=== PATIENT | female | born 1995 | race Caucasian/White ===

== ENCOUNTER → 2017-01-14 | Outpatient (CLI) | payer OTHER | LOC: OD 10:36 | PROVIDERS: ATTEND Midwife | DX: J06.9 Acute upper respiratory infection, unspecified (principal) | CPT/HCPCS: 87804 ==

== ENCOUNTER 2017-03-13 07:02 | Inpatient (IN) | payer OTHER ==
[2017-03-13] MEDS ORDERED: RINGERS SOLUTION,LACTATED 300 ML IV ONE (07:17)
[2017-03-13] MEDS ORDERED: OXYTOCIN/NORMAL SALINE 1,000 ML IV PRN ×2 (07:17→17:16)
[2017-03-13] MEDS ORDERED: OXYTOCIN/NORMAL SALINE 20 UNIT/1,000 ML RTUINJ ONE ×2 (08:01→16:22)
--- NOTE | 2017-03-13 08:01 | L&D Flow Sheet ---
LD Flowsheet Datetime Report Generated by CPN: 03/13/2017 08:00 Datetime: 03/13/2017 07:42 Vital Signs NBP Sys/Marry/Mean (mmHg): 95 (QS system process) : 55 (QS system process) : 70 (QS system process) Pulse: 91 (QS system process) Temperature (F): 99.0 (Jasmyne Whitetail, [facility]) Temperature (C): 37.2 (QS system process) Communication LaborFlag: Antepartum (QS system process)
[2017-03-13 08:13] LABS: ABSOLUTE LYMPHOCYTES (AUTO) 1.5 10^3/uL (0.5-4.7); ABSOLUTE MONOCYTES (AUTO) 0.6 10^3/uL (0.1-1.4); ABSOLUTE NEUT (AUTO) 7.6 10^3/uL (1.7-8.2); BASOPHILS % (AUTO) 0.2 % (0-2); EOSINOPHILS % (AUTO) 0.5 % (0-6); HEMATOCRIT 33.1 % (36.0-47.0); HEMOGLOBIN 11.5 g/dL (12.0-15.5); HGB HCT DIFFERENCE 1.4; LYMPHOCYTES % (AUTO) 15.6 % (13-45); MEAN CORPUSCULAR HEMOGLOBIN 31.6 pg (27.0-33.4); MEAN CORPUSCULAR HGB CONC 34.9 g/dL (32.0-36.0); MEAN CORPUSCULAR VOLUME 90 fl (80-97); MONOCYTES % (AUTO) 6.1 % (3-13); RED BLOOD COUNT 3.66 10^6/uL (3.72-5.28); RED CELL DISTRIBUTION WIDTH 13.3 % (11.5-14.0); SEGMENTED NEUTROPHILS % (AUTO) 77.6 % (42-78); WHITE BLOOD COUNT 9.8 10^3/uL (4.0-10.5)
[2017-03-13] MEDS: RINGERS SOLUTION,LACTATED 1,000 ML IV PRN ×4 (08:25→17:14)
[2017-03-13 09:02] LABS: APPEARANCE,URINE SLIGHTLY-CLOUDY; BILIRUBIN,URINE NEGATIVE (NEGATIVE); GLUCOSE, URINE NEGATIVE (NEGATIVE); KETONES,URINE TRACE mg/dL (NEGATIVE); LEUKOCYTE ESTERASE,URINE NEGATIVE (NEGATIVE); NITRITE,URINE NEGATIVE (NEGATIVE); PROTEIN,URINE NEGATIVE (NEGATIVE); UROBILINOGEN,URINE NEGATIVE mg/dL (<2.0)
[2017-03-13 09:18] LABS: URINE BARBITURATES SCREEN NEGATIVE; URINE METHADONE SCREEN NEGATIVE; URINE OPIATES LOW NEGATIVE; URINE PHENCYCLIDINE SCREEN NEGATIVE
[2017-03-13] MEDS ORDERED: FENTANYL/BUPIVACAINE/NS/PF 200 MCG/100 ML RTUINJ EPI ONE (13:43)
[2017-03-13] MEDS ORDERED: EPHEDRINE SULFATE INJ 50 MG/1 ML AMPULE ONE (13:43)
[2017-03-13] MEDS ORDERED: BUPIVACAINE HCL 0.25 % INJ/PF (2.5 MG/1 ML) 30 ML VIAL ONE (13:43)
[2017-03-13] MEDS ORDERED: FENTANYL/BUPIVACAINE/NS/PF 100 ML EPI PRN (16:00)
[2017-03-13] MEDS ORDERED: BENZOIN/ALOE VERA/STORAX/TOLU TINCTURE 60 ML TP PRN (16:00)
[2017-03-13] MEDS ORDERED: BUPIVACAINE HCL 0.25 % INJ/PF (2.5 MG/1 ML) 30 ML VIAL INFIL ONE (16:00)
[2017-03-13] MEDS ORDERED: MISOPROSTOL 0.2 MG TABLET ONE (16:21)
[2017-03-13] MEDS ORDERED: LIDOCAINE 1% INJ-PF (10 MG/ML) 30 ML SDV ONE (16:22)
[2017-03-13] MEDS ORDERED: MEASLES,MUMPS&RUBELLA VACC/PF 0.5 ML VIAL SUBCUT PRN (17:16)
[2017-03-13] MEDS ORDERED: DIPHENHYDRAMINE HCL 25 MG CAPSULE PO PRN (17:16)
[2017-03-13] MEDS ORDERED: PROMETHAZINE HCL 25 MG TABLET PO PRN (17:16)
[2017-03-13] MEDS ORDERED: ACETAMINOPHEN WITH CODEINE #3 TABLET PO PRN ×2 (17:16)
[2017-03-13] MEDS ORDERED: PROMETHAZINE HCL INJ 25 MG/1 ML VIAL IV PRN (17:16)
[2017-03-13] MEDS ORDERED: DIBUCAINE 1% OINTMENT 28 GM TP PRN (17:16)
[2017-03-13] MEDS ORDERED: MAGNESIUM HYDROXIDE SUSP 30 ML UDCUP PO PRN (17:16)
[2017-03-13] MEDS ORDERED: ACETAMINOPHEN 650 MG SUPP.RECT PR PRN (17:16)
[2017-03-13] MEDS ORDERED: DIPH/PERTUSS(ACELL)/TETANUS VAC/PF 0.5 ML SYR (>=10YO) IM PRN (17:16)
[2017-03-13] MEDS ORDERED: ZOLPIDEM TARTRATE 5 MG TABLET PO PRN (17:16)
[2017-03-13] MEDS ORDERED: PSEUDOEPHEDRINE HCL 30 MG TABLET PO PRN (17:16)
[2017-03-13] MEDS ORDERED: PROMETHAZINE HCL 25 MG SUPP.RECT PR PRN (17:16)
[2017-03-13] MEDS ORDERED: BENZOCAINE/MENTHOL AEROSOL SPRAY 56 ML TOP PRN (17:16)
[2017-03-13] MEDS ORDERED: NA PHOS,M-B/NA PHOS,DI-BA (ADULT) 133 ML ENEMA PR PRN (17:16)
[2017-03-13] MEDS ORDERED: GLYCERIN/WITCH HAZEL LEAF 1 EACH MED..PAD TP PRN (17:16)
--- NOTE | 2017-03-13 18:02 | L&D Current Admission ---
Current Admit Datetime Report Generated by CPN: 03/13/2017 18:00 ADMISSION INFORMATION Current Admit Date/Time: 03/13/2017 07:25 (03/13/2017 07:45:RODNEY Hair) Reason for Admission: Induction of Labor (03/13/2017 07:45:RODNEY Hair) Chief Complaint: Scheduled Induction of Labor (03/13/2017 07:45:RODNEY Hair) Medications During : Vitamin; Hydroxyzine (Vistaril) (03/13/2017 07:45:RODNEY Hair) Meds During -Oth: macrobid and vitamins (03/13/2017 07:45:RODNEY Hair) EGA per Dates: 40.0 (03/13/2017 07:45:QS system process) Method of Arrival: Ambulatory (03/13/2017 07:45:RODNEY Hair) Admitted From: Home (03/13/2017 07:45:RODNEY Hair) Reason for Induction: Maternal Diabetes; Other (03/13/2017 07:45:RODNEY Hair) Reason for Induction- Other: GDM diet controlled (03/13/2017 07:45:RODNEY Hair) Records Available: Yes (03/13/2017 07:45:RODNEY Hair) General Admission Information: Reviewed; Updated; Confirmed (03/13/2017 07:45:RODNEY Hair) General Admission Reviewed By: Jasmyne STEVENS (03/13/2017 07:45:RODNEY Hair) BELONGINGS/ADVANCED DIRECTIVES Valuables/Personal Effects: Purse/Wallet; Cell Phone (03/13/2017 07:45:RODNEY Hair) Other Belongings: see [facility] Valuables consent (11/15/2016 23:22:RODNEY Hair) Disposition of Belongings: Kept with Patient (03/13/2017 07:45:RODNEY Hair) Advance Direct for Healthcare: No, and Wants No Information (03/13/2017 07:45:RODNEY Hair) Durable Power of County Adviser: No (03/13/2017 07:45:RODNEY Hair) Living Will: Yes (03/13/2017 07:45:RODNEY Hair) Organ Donor: Yes (03/13/2017 07:45:RODNEY Hair) Pt Rights Information Given: Yes (03/13/2017 07:45:RODNEY Hair) Pt Understands Pt Rights: Yes (03/13/2017 07:45:RODNEY Hair) Patient Rights Comments: requests notary (03/13/2017 07:45:RODNEY Hair) LEARNING ASSESSMENT Knowledge Level: Understands L_D Process; Understands Care Activities; Had Pre-Hospital Education (03/13/2017 07:45:RODNEY Hair) Barriers to Learning: None (03/13/2017 07:45:RODNEY Hair) Learning Readiness: Motivated (03/13/2017 07:45:RODNEY Hair) Learns Best By: 1 to 1 Instruction; Demonstration (03/13/2017 07:45:RODNEY Hair) Learning Needs: Labor and Delivery Process; Pain Management; Symptoms to Report; Treatment Plan; Medication; Diagnosis; Nutrition; Equipment; Infant Care; Community Resources; Other (03/13/2017 07:45:RODNEY Hair) Learning Assessment Comments: (03/13/2017 07:45:RODNEY Hair) DOMESTIC VIOLANCE SCREENING Dom Viol Threatened/Hurt: No (03/13/2017 07:45:RODNEY Hair) Hx of Abuse/Neglect past 2yrs: No (03/13/2017 07:45:RODNEY Hair) Feel Unsafe Going Home: No (03/13/2017 07:45:RODENY Hair) Addt'l Observ Indicating Abuse: No (03/13/2017 07:45:RODNEY Hair) Reason Unable to Complete Screen: N/A, Screen Completed (03/13/2017 07:45:RODNEY Hair) Considered Personal Harm/Suicide: No (03/13/2017 07:45:RODNEY Hair) NUTRITIONAL/FUNCTIONAL SCREENING Problem with Appetite >5 Days: No (03/13/2017 07:45:RODNEY Hair) Chew/Swallow Difficulties: No (03/13/2017 07:45:RODNEY Hair) Inappropriate Wt Gain/Loss: No (03/13/2017 07:45:RODNEY Hair) Presence Skin Breakdown/Ulcer: No (03/13/2017 07:45:RODNEY Hair) Special Diet: No (03/13/2017 07:45:RODNEY Hair) Specify Diet: lactose intolerant (03/13/2017 07:45:RODNEY Hair) Pt Requests Care Center Manager Visit: No (03/13/2017 07:45:RODNEY Hair) Hx of Any of the Following?: N/A (03/13/2017 07:45:RODNEY Hair) New Diagnosis of: N/A (03/13/2017 07:45:RODNEY Hair) Requires Assist w/Ambulation: No (03/13/2017 07:45:RODNEY Hair) Uses Assist Device to Ambulate: No (03/13/2017 07:45:Jasmyne Camp, RNC) Pt Requires Help w/ADL's: No (03/13/2017 07:45:RODNEY Hair)
--- NOTE | 2017-03-13 18:02 | L&D General Admission ---
General Admit Datetime Report Generated by CPN: 03/13/2017 18:00 INFORMATION Patient Age: 21 (11/15/2016 22:55:QS system process) EDC: 03/13/2017 00:00 (11/15/2016 22:57:Carolann Gonzalez RN) : 2 (11/15/2016 22:57:Carolann Gonzalez RN) Para: 0 (11/15/2016 22:57:Carolann Gonzalez RN) Term: 0 (11/15/2016 22:57:RODNEY Hair) : 0 (11/15/2016 22:57:RODNEY Hair) Spontaneous Abortions: 0 (11/15/2016 22:57:RODNEY Hair) Induced Abortions: 1 (11/15/2016 22:57:RODNEY Hair) Livin (11/15/2016 22:57:RODNEY Hair) Cesareans: 0 (11/15/2016 22:57:RODNEY Hair) [facility]: [facility] Ectopic: 0 (11[facility]15/2016 [facility] Multiple Births: 0 (11/15/2016 22:57:[facility], [facility]) Baby, Number in Womb: 1 (11/15/2016 22:57:[facility], [facility]) CARE Primary Roofing Subcontractor[facility] (11/15/2016 22:57:Carolann Gonzalez RN) Month of 1st Visit: July (11/15/2016 22:57:Jasmyne Scales [facility]) Adequate Care: Yes (11/15/2016 22:57:Carolann Gonzalez RN) Prepregnancy Weight (lb): 148 (11/15/2016 22:57:Carolann Gonzalez RN) Prepregnancy Weight (kg): 67.3 (11/15/2016 22:57:QS system process) Height (in): 67 (03/13/2017 10:03:QS system process) ALLERGIES Medication Allergy: Yes (11/15/2016 22:57:Carolann Gonzalez RN) Medication Allergies: clavulanic acid (10/13/2016); clarithromycin (03/13/2017); amoxicillin (10/13/2016) (03/13/2017 07:21:QS system process) Latex Allergy: No Latex Allergies (11/15/2016 22:57:Carolann Gonzalez RN) COMMUNICATION Primary Language: Lao (11/15/2016 22:57:Carolann Gonzalez RN) Medical Tx Preferred Language: Lao (11/15/2016 22:57:Carolann Gonzalez RN) Communication Barrier(s): None (11/15/2016 22:57:RODNEY Hair) DEMOGRAPHICS Address: [facility] [place] [id number] (11/15/2016 22:55:QS system process) Zipcode: [address] (11/15/2016 22:55:QS system process) Home (11/15/2016 22:55:QS system process) Work (11/15/2016 22:55:QS system process) N: [id number] (11/15/2016 22:55:QS system process) Next of Kin Name: VITA RIZZO (11/15/2016 22:55:QS system process) Next of Kin (11/15/2016 22:55:QS system process) Next of Kin Relationship: SPO (11/15/2016 22:55:QS system process) Date of : 1995 (11/15/2016 22:55:QS system process) Marital Status: (11/15/2016 22:55:QS system process) Sex: Female (11/15/2016 22:55:QS system process) 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 [id number] (11/15/2016 22:57:Carolann Gonzalez RN) Marijuana: No (11/15/2016 22:57:Carolann Gonzalez RN) Cocaine: No (11/15/2016 22:57:Carolann Gonzalez RN) Other Illicit Drugs: No (11/15/2016 22:57:Carolann Gonzalez RN) VACCINE HISTORY Influenza Vaccine: Yes (11/15/2016 22:57:Carolann Gonzalez RN) Influenza Date: 10-03-2016 (11/15/2016 22:57:[facility]asmyne [facility]) Pneumococcal Vaccine: No (11/15/2016 22:57:[facility], [facility]) Tetanus Vaccine: Yes (11/15/2016 22:57:[facility]) Tetanus Date: 12-17-2016 (11/15/2016 22:57:[facility]) Tdap Vaccine: Yes (11/15/2016 22:57:[facility]) Tdap Date: 12-17-2016 (11/15/2016 22:57:[facility]) Hepatitis B Vaccine: Uncertain (11/15/2016 22:57:[facility]) Branch Or Department Chief Librarian: [facility] (11/15/2016 22:57:RODNEY Hair) Feeding Preference: Breast (11/15/2016 22:57:Carolann Gonzalez RN) Benefit of Breast Feed Discussed: Yes (11/15/2016 22:57:RODNEY Hair) Circumcision: N/A (11/15/2016 22:57:Carolann Goznalez RN) Classes Attended: Yes (11/15/2016 22:57:RODNEY Hair) Tubal Ligation: No (11/15/2016 22:57:Carolann Gonzalez RN) Tubal Authorization Signed: N/A (11/15/2016 22:57:Carolann Gonzalez RN) Consent: N/A (11/15/2016 22:57:Carolann Gonzalez RN) Consent Signed: N/A (11/15/2016 22:57:Carolann Gonzalez RN) Pain Management Plans: Epidural (11/15/2016 22:57:RODNEY Hair) Plans for Labor and Delivery: None (11/15/2016 22:57:Carolann Gonzalez RN) Support Person: Demetrio Rizzo (11/15/2016 22:57:Carolann Gonzalez RN) Support Person Relationship: (11/15/2016 22:57:Carolann Gonzalez RN) Cultural/Spritual Practice: N/A (11/15/2016 22:57:Carolann Gonzalez RN) Spir/Cult Dietary Needs: N/A (11/15/2016 22:57:Carolann Gonzalez RN) LIVING SITUATION/DISCHARGE PLAN Living Arrangements: House (11/15/2016 22:57:Carolann Gonzalez RN) Adequate Access to:: Electric; Heat; Refrigeration; Plumbing/Running water; Phone; Transportation (11/15/2016 22:57:Carolann Gonzalez RN) WIC Program: No (11/15/2016 22:57:Carolann Gonzalez RN) Discharge Wax Ball Knock Out Worker Person: Demetrio Rizzo (11/15/2016 22:57:Carolann Gonzalez RN) Person to Help after Discharge: Demetrio Rizzo (11/15/2016 22:57:Carolann Gonzalez RN) Currently Using Commun Resources: No (11/15/2016 22:57:Carolann Gonzalez RN) Outside Agency/High Frequency Mill Operator: No (11/15/2016 22:57:Carolann Gonzalez RN) Car Seat for Discharge: Yes (11/15/2016 22:57:RODNEY Hair) Adoption Requested: No (11/15/2016 22:57:Carolann Gonzalez RN) Pt Contact w/infant Post : N/A (11/15/2016 22:57:Carolann Gonzalez RN) LABS Blood Type: A Positive (11/15/2016 22:57:Carolann Gonzalez RN) Antibody Screen: negative (11/15/2016 22:57:Carolann Gonzalez RN) Hemoglobin: 11.5 L (03/13/2017 07:53:QS system process) Hematocrit: 33.1 L (03/13/2017 07:53:QS system process) MCV: 90 (03/13/2017 07:53:QS system process) Group Beta Strep: negative (11/15/2016 22:57:Yvette Aguillon RN) Gonorrhea: Negative (11/15/2016 22:57:Carolann Gonzalez RN) Chlamydia: Negative (11/15/2016 22:57:Carolann Gonzalez RN) RPR/VDRL: Nonreactive (11/15/2016 22:57:Carolann Gonzalez RN) HIV Exposure Test: Negative (11/15/2016 22:57:Yvette Aguillon RN) HIV Results: negative (11/15/2016 22:57:Yvette Aguillon RN) Hepatitis B: Negative (11/15/2016 22:57:Carolann Gonzalez RN) Rubella: Immune (11/15/2016 22:57:Carolann Gonzalez RN) OB/PREVIOUS HISTORY Previous Procedures: None (11/15/2016 22:57:Carolann Gonzalez RN) Current Procedures: Ultrasound (11/15/2016 22:57:Carolann Gonzalez RN) History of Previous : No (11/15/2016 22:57:Carolann Gonzalez RN) History of Gestational Diabetes: No (11/15/2016 22:57:Carolann Gonzalez RN) History of PIH: No (11/15/2016 22:57:Carolann Gonzalez RN) History of Incompetent Cervix: No (11/15/2016 22:57:Carolann Gonzalez RN) History of Placenta Previa/Abrup: No (11/15/2016 22:57:Carolann Gonzalze RN) History of Macrosomia: No (11/15/2016 22:57:Carolann Gonzalez RN) History of IUGR: No (11/15/2016 22:57:Carolann Gonzalez RN) History of Hemorrhage: No (11/15/2016 22:57:Carolann Gonzalez RN) History of Loss/Stillborn: No (11/15/2016 22:57:Carolann Gonzalez RN) History of : No (11/15/2016 22:57:Carolann Gonzalez RN) History of D (Rh) Sensitization: No (11/15/2016 22:57:Carolann Gonzalez RN) History Recurrent Loss/Stillborn: No (11/15/2016 22:57:Carolann Gonzalez RN) History Depression/PP Depression: No (11/15/2016 22:57:Carolann Gonzalez RN) History of Uterine Anomaly/DEMETRIUS: No (11/15/2016 22:57:Carolann Gonzalez RN) History of Infertility: No (11/15/2016 22:57:Carolann Gonzalez RN) History of ART Treatment: No (11/15/2016 22:57:Carolann Gonzalez RN) History of DEMETRIUS: No (11/15/2016 22:57:Carolann Gonzalez RN) Comments Obstetrical History: g1-7 weeks g2- current (11/15/2016 22:57:Carolann Gonzalez RN) MEDICAL HISTORY Med Hx Diabetes: No (11/15/2016 22:57:Carolann Gonzalez RN) Med Hx Hypertension: No (11/15/2016 22:57:Carolann Gonzalez RN) Med Hx Heart Disease: No (11/15/2016 22:57:Carolann Gonzalez RN) Med Hx Autoimmune Disorder: No (11/15/2016 22:57:Carolann Gonzalez RN) Med Hx Kidney Disease/UTI: No (11/15/2016 22:57:Carolann Gonzalez RN) Med Hx Neurologic/Epilepsy: No (11/15/2016 22:57:Carolann Gonzalez RN) Med Hx Psychiatric Disorders: No (11/15/2016 22:57:Carolann Gonzalez RN) Med Hx Hepatitis/Liver Disease: No (11/15/2016 22:57:Carolann Gonzalez RN) Med Hx Varicosities/Phlebitis: No (11/15/2016 22:57:Carolann Gonzalez RN) Med Hx Thyroid Dysfunction: No (11/15/2016 22:57:Carolann Gonzalez RN) Med Hx Trauma/Violence: No (11/15/2016 22:57:Carolann Gonzalez RN) Med Hx Blood Transfusion: No (11/15/2016 22:57:Carolann Gonzalez RN) Med Hx Pulmonary (Asthma,TB): No (11/15/2016 22:57:Carolann Gonzalez RN) Med Hx Breast: No (11/15/2016 22:57:Carolann Gonzalez RN) Med Hx SCREEN MACHINE OPERATOR Surgery: No (11/15/2016 22:57:Carolann Gonzalez RN) Med Hx Hospitalization/Surgery: Yes (11/15/2016 22:57:Carolann Gonzalez RN) Med Hx Anesthetic Complications: No (11/15/2016 22:57:Carolann Gonzalez RN) Med Hx Abnormal Pap Smear: No (11/15/2016 22:57:Carolann Gonzalez RN) Other Medical Diseases: No (11/15/2016 22:57:Carolann Gonzalez RN) Med Hx Significant Family Hx: No (11/15/2016 22:57:Carolann Gonzalez RN) Details of Med/Surg Hx: tonsilectomy, adenoidectomy, and removal of lump from breast bone (11/15/2016 22:57:Carolann Gonzalez RN) INFECTIOUS HISTORY Inf Hx Gonorrhea: No (11/15/2016 22:57:Carolann Gonzalez RN) Inf Hx Chlamydia: No (11/15/2016 22:57:Carolann Gonzalez RN) Inf Hx Syphilis: No (11/15/2016 22:57:Carolann Gonzalez RN) Inf Hx HIV/AIDS: No (11/15/2016 22:57:Carolnan Gonzalez RN) Inf Hx Human Papilloma Virus: No (11/15/2016 22:57:Carolann Gonzalez RN) Inf Hx Pt/Partner Genital Herpes: No (11/15/2016 22:57:Carolann Gonzalez RN) Inf Hx Tuberculosis/Exposure: No (11/15/2016 22:57:Carolann Gonzalez RN) Inf Hx Hepatitis B,C: No (11/15/2016 22:57:Carolann Gonzalez RN) Inf Hx Rash or Viral Illness: No (11/15/2016 22:57:Carolann Gonzalez RN) GENETIC HISTORY Gen Hx Age >=35 at BABAK: No (11/15/2016 22:57:Carolann Gonzalez RN) Gen Hx Thalassemia: No (11/15/2016 22:57:Carolann Gonzalez RN) Gen Hx Congenital Heart Defect: No (11/15/2016 22:57:Carolann Gonzalez RN) Gen Hx Neural Tube Defect: No (11/15/2016 22:57:Carolann Gonzalez RN) Gen Hx Down's Syndrome: No (11/15/2016 22:57:Carolann Gonzalez RN) Gen Hx Denton-Sachs: No (11/15/2016 22:57:Carolann Gonzalez RN) Gen Hx Patricia: No (11/15/2016 22:57:Carolann Gonzalez RN) Gen Hx Familial Dysautonomia: No (11/15/2016 22:57:Carolann Gonzalez RN) Gen Hx Sickle Cell Disease/Trait: No (11/15/2016 22:57:Carolann Gonzalez RN) Gen Hx Hemophilia/Blood Disorder: No (11/15/2016 22:57:Carolann Gonzalez RN) Gen Hx Muscular Dystrophy: No (11/15/2016 22:57:Carolann Gonzalez RN) Gen Hx Cystic Fibrosis: No (11/15/2016 22:57:Carolann Gonzalez RN) Gen Hx Huntingtons Chorea: No (11/15/2016 22:57:Carolann Gonzalez RN) Gen Hx Mental Retardation/Autism: No (11/15/2016 22:57:Carolann Gonzalez RN) Gen Hx Tested for Fragile X: No (11/15/2016 22:57:Carolann Gonzalez RN) Gen Hx Other Inher/Chromosomal: No (11/15/2016 22:57:Carolann Gonzalez RN) Gen Hx Maternal Metabolic DO: No (11/15/2016 22:57:Carolann Gonzalez RN) Gen Hx Pt Father or FOB Defect: No (11/15/2016 22:57:Carolann Gonzalez RN) Gen Hx Other Genetic History: No (11/15/2016 22:57:Carolann Gonzalez RN) Gen Hx Drugs/Meds since LMP: No (11/15/2016 22:57:Carolann Gonzalez RN)
--- NOTE | 2017-03-13 20:01 | L&D Flow Sheet ---
LD Flowsheet Datetime Report Generated by CPN: 03/13/2017 20:00 Datetime: 03/13/2017 19:50 NBP Sys/Marry/Mean (mmHg): 128 (QS system process) : 69 (QS system process) : 92 (QS system process) Pulse: 109 (QS system process) Datetime: 03/13/2017 19:45 Temperature (F): 98.4 (Dyan Danielson RN) Temperature (C): 36.9 (QS system process) Temperature Route: Axillary (Dyan Erum, RN) Datetime: 03/13/2017 19:35 NBP Sys/Marry/Mean (mmHg): 94 (QS system process) : 66 (QS system process) : 74 (QS system process) Pulse: 125 (QS system process) Datetime: 03/13/2017 19:30 Pain Assessment Comments: states she is "sore" (Dyan Erum, RN) Datetime: 03/13/2017 19:19 NBP Sys/Marry/Mean (mmHg): 108 (QS system process) : 67 (QS system process) : 82 (QS system process) Pulse: 112 (QS system process) Datetime: 03/13/2017 19:10 Pain Scale: 1 (Jasmyne Camp, RNC) Pain Presence: Intermittent (Jasmyne Camp, RNC) Pain Type: Cramping (Jasmyne Camp, RNC) Pain Location: Abdomen (Jasmyne Camp, RNC) Pain Relief Measures: Comfort Measures (Annotations: ice pack to perineum) (Jasmyne Camp, RNC) Datetime: 03/13/2017 19:04 NBP Sys/Marry/Mean (mmHg): 105 (QS system process) : 67 (QS system process) : 81 (QS system process) Pulse: 108 (QS system process) Pain Scale: 2 (Jasmyne Camp, RNC) Pain Presence: Intermittent (Jasmyne Camp, RNC) Pain Type: Cramping (Jasmyne Camp, RNC) Pain Location: Abdomen (Jasmyne Camp, RNC) Pain Relief Measures: Comfort Measures (Jasmyne Camp, RNC) Pain Assessment Comments: no apparent distress noted (Jasmyne Camp, RNC) Datetime: 03/13/2017 18:49 NBP Sys/Marry/Mean (mmHg): 102 (QS system process) : 63 (QS system process) : 77 (QS system process) Pulse: 106 (QS system process) Respirations: 20 (Jasmyne Camp, RNC) Datetime: 03/13/2017 18:35 NBP Sys/Marry/Mean (mmHg): 112 (QS system process) : 55 (QS system process) : 79 (QS system process) Pulse: 110 (QS system process) Respirations: 18 (Jasmyne Camp, RNC) Pain Scale: 2 (Jasmyne Camp, RNC) Pain Presence: Intermittent (Jasmyne Camp, RNC) Pain Type: Cramping (Jasmyne Camp, RNC) Pain Location: Abdomen (Jasmyne Camp, RNC) Datetime: 03/13/2017 18:34 NBP Sys/Marry/Mean (mmHg): 120 (QS system process) : 57 (QS system process) : 78 (QS system process) Pulse: 130 (Annotations: Dr Camacho at bedside report of maternal hr 108-130 without symptoms or complaints. ) (Jasmyne Camp, RNC) Respirations: 18 (Jasmyne Camp, RNC) Datetime: 03/13/2017 18:19 NBP Sys/Marry/Mean (mmHg): 127 (QS system process) : 60 (QS system process) : 80 (QS system process) Pulse: 130 (QS system process) Respirations: 20 (Jasmyne Camp, RNC) Temperature Route: Oral (Jasmyne Camp, RNC) Datetime: 03/13/2017 18:04 NBP Sys/Marry/Mean (mmHg): 153 (QS system process) : 67 (QS system process) : 97 (QS system process) Pulse: 115 (QS system process) Respirations: 18 (Jasmyne Camp, RNC) Temperature (F): 98.4 (Jasmyne Camp, RNC) Temperature (C): 36.9 (QS system process) Temperature Route: Oral (Jasmyne Camp, RNC) Pain Scale: 0 (Jasmyne Camp, RNC) Pain Presence: None/Denies (Jasmyne Camp, RNC) Pain Type: N/A (Jasmyne Camp, RNC) Pain Assessment Comments: no apparent distress noted (Jasmyne Camp, RNC) Datetime: 03/13/2017 18:00 Stage of : Recovery (Jasmyne Camp, RNC) Datetime: 03/13/2017 17:49 Pushing Position: Pushing with Contractions; Pushing Right Side (Jasmyne Camp, RNC) Pushing Progress: Descent with Pushing; Presenting Part Visible (Jasmyne Camp, RNC) Stage 2 Comments: pushing effectively (Jasmyne Camp, RNC) Datetime: 03/13/2017 17:45 Monitor Mode: External; Palpation (Jasmyne Camp, RNC) Frequency (min): 1.5-3 (Jasmyne Camp, RNC) Quality: Moderate to Strong (Jasmyne Camp, RNC) Duration (sec): 60-100 (Jasmyne Camp, RNC) Duration Criteria: Less than Two 120 Second Contractions (Jasmyne Camp, RNC) Pattern: Normal: <= 5 Contractions in 10 Minutes (Jasmyne Camp, RNC) Resting Tone (Palpate): Relaxed (Jasmyne Camp, RNC) Monitor Mode: External US; Auscultation (Jasmyne Camp, RNC) FHR Baseline Rate : 140 (Jasmyne Camp, RNC) FHR Baseline Changes: No Baseline Change (Jasmyne Camp, RNC) Variability: Moderate 6-25 bpm (Jasmyne Camp, RNC) Decelerations: Variable (Jasmyne Camp, RNC) Datetime: 03/13/2017 17:33 Pitocin (milliunit): Pitocin Discontinued (Jasmyne Camp, RNC) Medication Comments: discontinued secondary to variable decels (Jasmyne Camp, RNC) Datetime: 03/13/2017 17:32 NBP Sys/Marry/Mean (mmHg): 109 (QS system process) : 65 (QS system process) : 79 (QS system process) Pulse: 105 (QS system process) Respirations: 20 (Jasmyne Camp, RNC) LaborFlag: Labor (QS system process) Datetime: 03/13/2017 17:30 Monitor Mode: External; Palpation (Jasmyne Camp, RNC) Frequency (min): 1.5-2 (Jasmyne Camp, RNC) Quality: Strong (Jasmyne Camp, RNC) Duration (sec): 70-100 (Jasmyne Camp, RNC) Duration Criteria: Less than Two 120 Second Contractions (Jasmyne Camp, RNC) Pattern: Normal: <= 5 Contractions in 10 Minutes (Jasmyne Camp, RNC) Resting Tone (Palpate): Relaxed (Jasmyne Camp, RNC) Monitor Mode: External US; Auscultation (Jasmyne Camp, RNC) FHR Baseline Rate : 145 (Jasmyne Camp, RNC) FHR Baseline Changes: No Baseline Change (Jasmyne Camp, RNC) Variability: Moderate 6-25 bpm (Jasmyne Camp, RNC) Accelerations: 15X15 (Jasmyne Camp, RNC) Decelerations: Variable (Jasmyne Camp, RNC) Datetime: 03/13/2017 17:27 Pushing Position: Pushing with Contractions; Pushing Left Side (Rosa Bellavance, RNC) Stage 2 Comments: RN and provider to remain at bedside throughout second stage continuously assessing fhr while pt pushes with contractions (Jasmyne Camp, RNC) Datetime: 03/13/2017 17:25 Pushing: Coached on Pushing; Urge to Push (Rosa Bellavance, RNC) Pushing Position: Pushing with Contractions (Rosa Bellavance, RNC) Datetime: 03/13/2017 17:23 Dilatation (cm): 10.0 (Jasmyne Camp, RNC) Effacement (%): 100 (Jasmnye Camp, RNC) Station: 2 (Jasmyne Camp, RN) Exam by: Augusto, H (Jasmyne Camp, RN) Vaginal Bleeding: Normal Show (Jasmyne Camp, [facility]) Datetime: 03/13/2017 17:18 NBP Sys/Marry/Mean (mmHg): 97 (QS system process) : 53 (QS system process) : 66 (QS system process) Pulse: 75 (QS system process) LaborFlag: Labor (QS system process) Datetime: 03/13/2017 17:15 Monitor Mode: External; Palpation (Jasmyne Camp, RNC) Frequency (min): 1-3 (Jasmyne Camp, RNC) Quality: Moderate to Strong (Jasmyne Camp, RNC) Duration (sec): 60-90 (Jasmyne Camp, RNC) Duration Criteria: Less than Two 120 Second Contractions (Jasmyne Camp, RNC) Pattern: Normal: <= 5 Contractions in 10 Minutes (Jasmyne Camp, RNC) Resting Tone (Palpate): Relaxed (Jasmyne Camp, RNC) Monitor Mode: External US; Auscultation (Jasmyne Camp, RNC) FHR Baseline Rate : 145 (Jasmyne Camp, RNC) FHR Baseline Changes: No Baseline Change (Jasmyne Camp, RNC) Variability: Moderate 6-25 bpm (Jasmyne Camp, RNC) Accelerations: 15X15 (Jasmyne Camp, RNC) Decelerations: Early (Jasmyne Camp, RNC) Datetime: 03/13/2017 17:02 NBP Sys/Marry/Mean (mmHg): 93 (QS system process) : 50 (QS system process) : 68 (QS system process) Pulse: 78 (QS system process) Respirations: 18 (Jasmyne Camp, RNC) LaborFlag: Labor (QS system process) Datetime: 03/13/2017 17:00 Monitor Mode: External; Palpation (Jasmyne Camp, RNC) Frequency (min): 1-3 (Jasmyne Camp, RNC) Quality: Moderate to Strong (Jasmyne Camp, RNC) Duration (sec): 60-100 (Jasmyne Camp, RNC) Duration Criteria: Less than Two 120 Second Contractions (Jasmyne Camp, RNC) Resting Tone (Palpate): Relaxed (Jasmyne Camp, RNC) Monitor Mode: External US; Auscultation (Jasmyne Camp, RNC) FHR Baseline Rate : 140 (Jasmyne Camp, RNC) FHR Baseline Changes: No Baseline Change (Jasmyne Camp, RNC) Variability: Moderate 6-25 bpm (Jasmyne Camp, RNC) Accelerations: 10X10 (Jasmyne Camp, RNC) Decelerations: None (Jasmyne Camp, RNC) Pitocin (milliunit): Pitocin Remains (milliunits) @ (Annotations: 12) (Jasmyne Camp, RNC) Datetime: 03/13/2017 16:50 Pitocin (milliunit): Pitocin Decreased to (milliunits) @ 12 (Jasmyne Camp, RNC) Datetime: 03/13/2017 16:45 Monitor Mode: External; Palpation (Jasmyne Camp, RNC) Monitor Interventions for UA: [employer] Adjusted (Jasmyne Camp, RNC) Frequency (min): 1-3 (Jasmyne Camp, RNC) Quality: Moderate to Strong (Jasmyne Camp, RNC) Duration (sec): 60-90 (Jasmyne Camp, RNC) Duration Criteria: Less than Two 120 Second Contractions (Jasmyne Camp, RNC) Pattern: Normal: <= 5 Contractions in 10 Minutes (Jasmyne Camp, RNC) Resting Tone (Palpate): Relaxed (Jasmyne Camp, RNC) Monitor Mode: External US; Auscultation (Jasmyne Camp, RNC) FHR Baseline Rate : 135 (Jasmyen Camp, RNC) FHR Baseline Changes: No Baseline Change (Jasmyne Camp, RNC) Variability: Moderate 6-25 bpm (Jasmyne Camp, RNC) Accelerations: 10X10 (Jasmyne Camp, RNC) Decelerations: Early (Jasmyne Camp, RNC) Pitocin (milliunit): Pitocin Remains (milliunits) @ (Jasmyne Camp, RNC) Pitocin (milliunit): Pitocin Remains (milliunits) @ (Annotations: 14) (Jasmyne Camp, RNC) Datetime: 03/13/2017 16:33 NBP Sys/Marry/Mean (mmHg): 110 (QS system process) : 53 (QS system process) : 76 (QS system process) Pulse: 79 (QS system process) Respirations: 17 (Jasmyne Camp, RNC) LaborFlag: Labor (QS system process) Datetime: 03/13/2017 16:30 Monitor Mode: External; Palpation (Jasmyne Camp, RNC) Monitor Interventions for UA: [employer] Adjusted (Jasmyne Camp, RNC) Frequency (min): 1-3 (Jasmyne Camp, RNC) Quality: Moderate to Strong (Jasmyne Camp, RNC) Duration (sec): 60-90 (Jasmyne Camp, RNC) Duration Criteria: Less than Two 120 Second Contractions (Jasmyne Camp, RNC) Pattern: Normal: <= 5 Contractions in 10 Minutes (Jasmyne Camp, RNC) Resting Tone (Palpate): Relaxed (Jasmyne Camp, RNC) Monitor Mode: External US; Auscultation (Jasmyne Camp, RNC) FHR Baseline Rate : 135 (Jasmyne Camp, RNC) FHR Baseline Changes: No Baseline Change (Jasmyne Camp, RNC) Variability: Moderate 6-25 bpm (Jasmyne Camp, RNC) Accelerations: 10X10 (Jasmyne Camp, RNC) Decelerations: Early (Jasmyne Camp, RNC) Dilatation (cm): 9.5 (Jasmyne Camp, RNC) Effacement (%): 100 (Jasmyne Camp, RNC) Station: 2 (Jasmnye Scales, RNC) Exam by: Demian Scales (Jasmyne Scales, RNC) Vaginal Bleeding: Normal Show (Jasmyne Scales, RNC) Pitocin (milliunit): Pitocin Remains (milliunits) @ (Annotations: 14) (Jasmyne Scales, RNC) Patient Position/Activity: Left Extreme; Peanut Ball (Jasmyne Camp, RNC) Communication Comments: Dr Camacho on unit aware of cervical change and station (Jasmyne Camp, RNC) Datetime: 03/13/2017 16:15 Monitor Mode: External; Palpation (Jasmyne Camp, RNC) Frequency (min): 1-2 (Jasmyne Camp, RNC) Quality: Moderate to Strong (Jasmyne Camp, RNC) Duration (sec): 70-100 (Jasmyne Camp, RNC) Duration Criteria: Less than Two 120 Second Contractions (Jasmyne Camp, RNC) Pattern: Normal: <= 5 Contractions in 10 Minutes (Jasmyne Camp, RNC) Resting Tone (Palpate): Relaxed (Jasmyne Camp, RNC) Monitor Mode: External US; Auscultation (Jasmyne Camp, RNC) FHR Baseline Rate : 140 (Jasmyne Camp, RNC) FHR Baseline Changes: No Baseline Change (Jasmyne Camp, RNC) Variability: Moderate 6-25 bpm (Jasmyne Camp, RNC) Decelerations: Early (Jasmyne Camp, RNC) Pitocin (milliunit): Pitocin Remains (milliunits) @ (Annotations: 14) (Jasmyne Camp, RNC) Datetime: 03/13/2017 16:02 NBP Sys/Marry/Mean (mmHg): 106 (QS system process) : 65 (QS system process) : 78 (QS system process) Pulse: 72 (QS system process) Respirations: 18 (Jasmyne Camp, RNC) LaborFlag: Labor (QS system process) Datetime: 03/13/2017 16:00 Monitor Mode: External; Palpation (Jasmyne Camp, RNC) Frequency (min): 1-2 (Jasmyne Camp, RNC) Quality: Moderate to Strong (Jasmyne Camp, RNC) Duration (sec): 70-100 (Jasmyne Camp, RNC) Duration Criteria: Less than Two 120 Second Contractions (Jasmyne Camp, RNC) Pattern: Normal: <= 5 Contractions in 10 Minutes (Jasmyne Camp, RNC) Resting Tone (Palpate): Relaxed (Jasmyne Camp, RNC) Monitor Mode: External US; Auscultation (Jasmyne Camp, RNC) FHR Baseline Rate : 140 (Jasmyne Camp, RNC) FHR Baseline Changes: No Baseline Change (Jasmyne Camp, RNC) Variability: Moderate 6-25 bpm (Jasmyne Camp, RNC) Accelerations: 15X15 (Jasmyne Camp, RNC) Decelerations: Early (Jasmyne Camp, RNC) Pitocin (milliunit): Pitocin Decreased to (milliunits) @ 14 (Jasmyne Camp, RNC) Medication Comments: Pitocin decreased secondary to tachysystole (Jasmyne Camp, RNC) Provider Reviewed Strip: Yes (Jasmyne Camp, RNC) Communication: Report Given to @ Dario Casas Hoffman, K (Jasmyne Camp, RNC) Communication Comments: report to providers on unit of increase in bloody show (Jasmyne Camp, RNC) Datetime: 03/13/2017 15:48 NBP Sys/Marry/Mean (mmHg): 92 (QS system process) : 52 (QS system process) : 69 (QS system process) Pulse: 72 (QS system process) Respirations: 17 (Jasmyne Camp, RNC) LaborFlag: Labor (QS system process) Datetime: 03/13/2017 15:45 Monitor Mode: External; Palpation (Jasmyne Camp, RNC) Frequency (min): 1-3 (Jasmyne Camp, RNC) Quality: Moderate to Strong (Jasmyne Camp, RNC) Duration (sec): 60-80 (Jasmyne Camp, RNC) Duration Criteria: Less than Two 120 Second Contractions (Jasmyne Camp, RNC) Pattern: Normal: <= 5 Contractions in 10 Minutes (Jasmyne Camp, RNC) Resting Tone (Palpate): Relaxed (Jasmyne Camp, RNC) Monitor Mode: External US; Auscultation (Jasmyne Camp, RNC) FHR Baseline Rate : 135 (Jasmyne Camp, RNC) FHR Baseline Changes: No Baseline Change (Jasmyne Camp, RNC) Variability: Moderate 6-25 bpm (Jasmyne Camp, RNC) Accelerations: 10X10 (Jasmyne Camp, RNC) Decelerations: None (Jasmyne Camp, RNC) Pitocin (milliunit): Pitocin Remains (milliunits) @ 16 (Jasmyne Camp, RNC) Datetime: 03/13/2017 15:33 NBP Sys/Marry/Mean (mmHg): 89 (QS system process) : 50 (QS system process) : 67 (QS system process) Pulse: 67 (QS system process) Respirations: 17 (Jasmyne Camp, RNC) LaborFlag: Labor (QS system process) Datetime: 03/13/2017 15:30 Monitor Mode: External; Palpation (Jasmyne Camp, RNC) Frequency (min): 1-3 (Jasmyne Camp, RNC) Quality: Moderate to Strong (Jasmyne Camp, RNC) Duration (sec): 70-100 (Jasmyne Camp, RNC) Duration Criteria: Less than Two 120 Second Contractions (Jasmyne Camp, RNC) Pattern: Normal: <= 5 Contractions in 10 Minutes (Jasmyne Camp, RNC) Resting Tone (Palpate): Relaxed (Jasmyne Camp, RNC) Contraction Comments: couplets noted (Jasmyne Camp, RNC) Monitor Mode: External US; Auscultation (Jasmyne Camp, RNC) FHR Baseline Rate : 130 (Jasmyne Camp, RNC) FHR Baseline Changes: No Baseline Change (Jasmyne Camp, RNC) Variability: Moderate 6-25 bpm (Jasmyne Camp, RNC) Accelerations: 15X15 (Jasmyne Camp, RNC) Decelerations: None (Jasmyne Camp, RNC) Pitocin (milliunit): Pitocin Remains (milliunits) @ 16 (Jasmyne Camp, RNC) Datetime: 03/13/2017 15:18 NBP Sys/Marry/Mean (mmHg): 91 (QS system process) : 54 (QS system process) : 69 (QS system process) Pulse: 69 (QS system process) Respirations: 17 (Jasmyne Camp, RNC) LaborFlag: Labor (QS system process) Datetime: 03/13/2017 15:15 Monitor Mode: External; Palpation (Jasmyne Camp, RNC) Frequency (min): 1.5-3 (Jasmyne Camp, RNC) Quality: Moderate to Strong (Jasmyne Camp, RNC) Duration (sec): 50-90 (Jasmyne Camp, RNC) Duration Criteria: Less than Two 120 Second Contractions (Jasmyne Camp, RNC) Pattern: Normal: <= 5 Contractions in 10 Minutes (Jasmyne Camp, RNC) Resting Tone (Palpate): Relaxed (Jasmyne Camp, RNC) Monitor Mode: External US; Auscultation (Jasmyne Camp, RNC) FHR Baseline Rate : 135 (Jasmyne Camp, RNC) FHR Baseline Changes: No Baseline Change (Jasmyne Camp, RNC) Variability: Moderate 6-25 bpm (Jasmyne Camp, RNC) Accelerations: 15X15 (Jasmyne Camp, RNC) Decelerations: None (Jasmyne Camp, RNC) Pitocin (milliunit): Pitocin Remains (milliunits) @ 16 (Jasmyne Camp, RNC) Datetime: 03/13/2017 15:02 NBP Sys/Marry/Mean (mmHg): 91 (QS system process) : 50 (QS system process) : 67 (QS system process) Pulse: 71 (QS system process) Respirations: 20 (Jasmyne Camp, RNC) LaborFlag: Labor (QS system process) Datetime: 03/13/2017 15:00 Temperature (F): 98.4 (Jasmyne Camp, RNC) Temperature (C): 36.9 (QS system process) Temperature Route: Oral (Jasmyne Revelo, RNC) Monitor Mode: External; [facility] Monitor Interventions for UA: [employer] Adjusted (Jasmyne Camp, RNC) Frequency (min): 1.5-2 (Jasmyne Camp, RNC) Quality: Moderate to Strong (Jasmyne Camp, RNC) Duration (sec): 70-90 (Jasmyne Camp, RNC) Duration Criteria: Less than Two 120 Second Contractions (Jasmyne Camp, RNC) Pattern: Normal: <= 5 Contractions in 10 Minutes (Jasmyne Camp, RNC) Resting Tone (Palpate): Relaxed (Jasmyne Camp, RNC) Monitor Mode: External US; Auscultation (Jasmyne Camp, RNC) FHR Baseline Rate : 135 (Jasmyne Camp, RNC) FHR Baseline Changes: No Baseline Change (Jasmyne Camp, RNC) Variability: Moderate 6-25 bpm (Jasmyne Camp, RNC) Accelerations: 15X15 (Jasmyne Camp, RNC) Decelerations: None (Jasmyne Camp, RNC) Pain Scale: 0 (Jasmyne Camp, RNC) Pain Presence: None/Denies (Jasmyne Camp, RNC) Pain Type: N/A (Jasmyne Camp, RNC) Pain Relief Measures: Epidural Given (Jasmyne Camp, RNC) Pain Coping: Sleeping (Jasmyne Camp, RNC) Pitocin (milliunit): Pitocin Remains (milliunits) @ 16 (Jasmyne Camp, RNC) Patient Position/Activity: HOB Lowered; Left Extreme; Peanut Ball (Jasmyne Scales, RNC) Hygiene: Maribell Care; Underpad Changed (Jasmyne Camp, RNC) Anesthesia Level Check: T10- Umbilicus (Jasmyne Camp, RNC) LaborFlag: Labor (QS system process) Datetime: 03/13/2017 14:47 NBP Sys/Marry/Mean (mmHg): 104 (QS system process) : 55 (QS system process) : 74 (QS system process) Pulse: 70 (QS system process) Respirations: 20 (Jasmyne Camp, RNC) LaborFlag: Labor (QS system process) Datetime: 03/13/2017 14:45 Monitor Mode: External; Palpation (Jasmyne Camp, RNC) Frequency (min): 1.5-2 (Jasmyne Camp, RNC) Quality: Moderate (Jasmyne Camp, RNC) Duration (sec): 70-80 (Jasmyne Camp, RNC) Duration Criteria: Less than Two 120 Second Contractions (Jasmyne Camp, RNC) Resting Tone (Palpate): Relaxed (Jasmyne Camp, RNC) Monitor Mode: External US; Auscultation (Jasmyne Camp, RNC) FHR Baseline Rate : 135 (Jasmyne Camp, RNC) FHR Baseline Changes: No Baseline Change (Jasmyne Camp, RNC) Variability: Minimal - Undetectable to <=5 bpm (Jasmyne Camp, RNC) Decelerations: Early (Jasmyne Camp, RNC) Datetime: 03/13/2017 14:32 NBP Sys/Marry/Mean (mmHg): 107 (QS system process) : 57 (QS system process) : 78 (QS system process) Pulse: 68 (QS system process) Respirations: 18 (Jasmyne Camp, RNC) LaborFlag: Labor (QS system process) Datetime: 03/13/2017 14:30 Monitor Mode: External; Palpation (Jasmyne Camp, RNC) Frequency (min): 1-3 (Jasmyne Camp, RNC) Quality: Moderate to Strong (Jasmyne Camp, RNC) Duration (sec): 60-80 (Jasmyne Camp, RNC) Duration Criteria: Less than Two 120 Second Contractions (Jasmyne Camp, RNC) Pattern: Normal: <= 5 Contractions in 10 Minutes (Jasmyne Camp, RNC) Resting Tone (Palpate): Relaxed (Jasmyne Camp, RNC) Monitor Mode: External US; Auscultation (Jasmyne Camp, RNC) FHR Baseline Rate : 130 (Jasmyne Camp, RNC) FHR Baseline Changes: No Baseline Change (Jasmyne Camp, RNC) Variability: Moderate 6-25 bpm (Jasmyne Camp, RNC) Accelerations: 15X15 (Jasmyne Camp, RNC) Decelerations: None (Jasmyne Camp, RNC) Dilatation (cm): 5.5 (Jasmyne Camp, RNC) Effacement (%): 90 (Jasmyne Revelo, RNC) Station: 0 (Jasmyne Revelo, RNC) Exam by: Camp, S (Jasmyne Revelo, RNC) Vaginal Bleeding: Normal Show (Jasmyne Revelo, RNC) Cervix, Consistency: Soft (Jasmyne Revelo, RNC) Cervix, Position: Anterior ([facility], RNC) I/O Interventions: Olvera Cath Inserted ([facility], RNC) Patient Care Comments: olvera placed draining clear yellow urine, tolerated procedure well ([facility], RNC) Datetime: 03/13/2017 14:29 NBP Sys/Marry/Mean (mmHg): 98 (QS system process) : 50 (QS system process) : 67 (QS system process) Pulse: 67 (QS system process) Respirations: 18 (Jasmyne Camp, RNC) LaborFlag: Labor (QS system process) Datetime: 03/13/2017 14:17 NBP Sys/Marry/Mean (mmHg): 119 (QS system process) : 74 (QS system process) : 90 (QS system process) Pulse: 85 (QS system process) LaborFlag: Labor (QS system process) Datetime: 03/13/2017 14:15 NBP Sys/Marry/Mean (mmHg): 113 (QS system process) : 57 (QS system process) : 81 (QS system process) Pulse: 83 (QS system process) Respirations: 20 (Jasmyne Camp, RNC) Monitor Mode: External; Palpation (Jasmyne Camp, RNC) Frequency (min): 1-3 (Jasmyne Camp, RNC) Quality: Moderate to Strong (Jasmyne Camp, RNC) Duration (sec): 60-80 (Jasmyne Camp, RNC) Duration Criteria: Less than Two 120 Second Contractions (Jasmyne Camp, RNC) Pattern: Normal: <= 5 Contractions in 10 Minutes (Jasmyne Camp, RNC) Resting Tone (Palpate): Relaxed (Jasmyne Camp, RNC) Monitor Mode: External US; Auscultation (Jasmyne Camp, RNC) FHR Baseline Rate : 135 (Jasmyne Camp, RNC) FHR Baseline Changes: No Baseline Change (Jasmyne Camp, RNC) Variability: Minimal - Undetectable to <=5 bpm (Jasmyne Camp, RNC) Accelerations: 15X15 (Jasmyne Camp, RNC) Decelerations: None (Jasmyne Camp, RNC) Pitocin (milliunit): Pitocin Remains (milliunits) @ 16 (Jasmyne Camp, RNC) LaborFlag: Labor (QS system process) Datetime: 03/13/2017 14:14 NBP Sys/Marry/Mean (mmHg): 117 (QS system process) NBP Sys/Marry/Mean (mmHg): 119 (QS system process) : 57 (QS system process) : 60 (QS system process) : 81 (QS system process) : 80 (QS system process) Pulse: 83 (QS system process) Pulse: 87 (QS system process) LaborFlag: Labor (QS system process) Datetime: 03/13/2017 14:13 Epidural Procedure: Cath Placed (Jasmyne Camp, RNC) Datetime: 03/13/2017 14:12 NBP Sys/Marry/Mean (mmHg): 119 (QS system process) : 67 (QS system process) : 88 (QS system process) Pulse: 78 (QS system process) Anesthesia Plans: Epidural (Jasmyne Camp, RNC) Epidural Positioning: Sitting (Jasmyne Camp, RNC) Epidural Procedure: Test Dose; Loading Dose (Jasmyne Camp, RNC) LaborFlag: Labor (QS system process) Datetime: 03/13/2017 14:05 Instructional Method: Demo; Verbal; Written; Patient Instructed; Verbalized Understanding (Jasmyne Camp, RNC) Unit Routine: Consents Signed (Jasmyne Camp, RNC) Pain Management: Epidural (Jasmyne Camp, RNC) Teaching Comments: epidural consent reveiwed with risks (Jasmyne Camp, RNC) Datetime: 03/13/2017 14:04 Procedure Verify: Correct Patient Identity; Correct Side and Site are Marked; Accurate Procedure Consent Form; Agreement on Procedure to be Done; Correct Patient Position; Safety Precautions Based on Patient History or Medication Use (Jasmyne Camp, RNC) Anesthesia Plans: Epidural (Jasmyne Camp, RNC) Epidural Positioning: Sitting (Jasmyne Camp, RNC) Anesthesia Comments: Dr Murphy at bedside (Jasmyne Camp, RNC) Datetime: 03/13/2017 14:00 Monitor Mode: External; Palpation (Jasmyne Camp, RNC) Frequency (min): 1-3 (Jasmyne Camp, RNC) Quality: Moderate to Strong (Jasmyne Camp, RNC) Duration (sec): 60-80 (Jasmyne Camp, RNC) Duration Criteria: Less than Two 120 Second Contractions (Jasmyne Camp, RNC) Pattern: Normal: <= 5 Contractions in 10 Minutes (Jasmyne Camp, RNC) Resting Tone (Palpate): Relaxed (Jasmyne Camp, RNC) Monitor Mode: External US; Auscultation (Jasmyne Camp, RNC) FHR Baseline Rate : 135 (Jasmyne Camp, RNC) FHR Baseline Changes: No Baseline Change (Jasmyne Camp, RNC) Variability: Minimal - Undetectable to <=5 bpm (Jasmyne Camp, RNC) Accelerations: 15X15 (Jasmyne Camp, RNC) Decelerations: None (Jasmyne Camp, RNC) Pitocin (milliunit): Pitocin Remains (milliunits) @ 16 (Jasmyne Camp, RNC) IV/Blood Work: IV Infusing per Order (Jasmyne Camp, RNC) Datetime: 03/13/2017 13:52 Procedure Verify: Correct Patient Identity; Correct Side and Site are Marked; Accurate Procedure Consent Form (Jasmyne Camp, RNC) Anesthesia Plans: Epidural (Jasmyne Camp, RNC) Epidural Positioning: Sitting (Jasmyne Camp, RNC) Anesthesia Comments: repositioned to sitting for epidural (Jasmyne Camp, RNC) Datetime: 03/13/2017 13:48 IV/Blood Work: New IV Bag Hung (Jasmyne Camp, RNC) Datetime: 03/13/2017 13:45 Monitor Mode: External; Palpation (Jasmyne Camp, RNC) Frequency (min): 1.5-3 (Jasmyne Camp, RNC) Quality: Moderate to Strong (Jasmyne Camp, RNC) Duration (sec): 50-80 (Jasmyne Camp, RNC) Duration Criteria: Less than Two 120 Second Contractions (Jasmyne Camp, RNC) Pattern: Normal: <= 5 Contractions in 10 Minutes (Jasmyne Camp, RNC) Resting Tone (Palpate): Relaxed (Jasmyne Camp, RNC) Monitor Mode: External US; Auscultation (Jasmyne Camp, RNC) FHR Baseline Rate : 140 (Jasmyne Camp, RNC) FHR Baseline Changes: No Baseline Change (Jasmyne Camp, RNC) Variability: Moderate 6-25 bpm (Jasmyne Camp, RNC) Accelerations: 15X15 (Jasmyne Camp, RNC) Decelerations: None (Jasmyne Camp, RNC) Pitocin (milliunit): Pitocin Remains (milliunits) @ (Annotations: 16) (Jasmyne Camp, RNC) Datetime: 03/13/2017 13:44 Communication: RN at Bedside; Provider Orders Received (Jasmyne Camp, RNC) Communication Comments: Dario Casas CNM on unit order received for epidural placement (Jasmyne Camp, RNC) Datetime: 03/13/2017 13:43 Pain Scale: 4 (Jasmyne Camp, RNC) Pain Presence: Intermittent (Jasmyne Camp, RNC) Pain Type: Contraction (Jasmyne Camp, RNC) Pain Location: Back (Jasmyne Camp, RNC) Pain Goal: 2 (Jasmyne Camp, RNC) Pain Coping: Requesting Pain Medication or Epidural (Jasmyne Camp, RNC) Pain Assessment Comments: requests epidural placement for pain (Jasmyne Camp, RNC) Comfort Measures: Breathing/Relaxation; Coaching (Jasmyne Scales, RNC) LaborFlag: Labor (QS system process) Datetime: 03/13/2017 13:30 Monitor Mode: External; Palpation (RODNEY Khanna) Frequency (min): 2.5-3 (Nerissa Pyle RNC) Quality: Mild/Moderate (Nerissa Pyle RNC) Duration (sec): 60-90 (Nerissa Pyle RNC) Duration Criteria: Less than Two 120 Second Contractions (Nerissa Pyle RNC) Pattern: Normal: <= 5 Contractions in 10 Minutes (Nerissa Pyle RNC) Resting Tone (Palpate): Relaxed (Nerissa Pyle RNC) Monitor Mode: External US (RODNEY Khanna) FHR Baseline Rate : 135 (Nerissa Pyle RNC) Variability: Moderate 6-25 bpm (Nerissa Pyle RNC) Accelerations: 15X15 (Nerissa Pyle RNC) Decelerations: None (RODNEY Khanna) Pitocin (milliunit): Pitocin Remains (milliunits) @ (Annotations: 16) (Jasmyne Scales, C) Datetime: 03/13/2017 13:29 I/O Interventions: Up to BR (Jasmyne Scales, RNC) Datetime: 03/13/2017 13:15 Monitor Mode: External; Palpation (RODNEY Khanna) Frequency (min): 2.5-4 (RODNEY Khanna) Quality: Mild/Moderate (RODNEY Khanna) Duration (sec): 60-90 (RODNEY Khanna) Duration Criteria: Less than Two 120 Second Contractions (RODNEY Khanna) Pattern: Normal: <= 5 Contractions in 10 Minutes (RODNEY Khanna) Resting Tone (Palpate): Relaxed (RODNEY Khanna) Monitor Mode: External US (RODNEY Khanna) FHR Baseline Rate : 135 (RODNEY Khanna) Variability: Moderate 6-25 bpm (Nerissa Edenilson, RNC) Accelerations: None (Nerissa Pyle RNC) Decelerations: None (Nerissa Pyle RNC) Pitocin (milliunit): Pitocin Remains (milliunits) @ (Annotations: 16) (Jasmyne Camp, RNC) Datetime: 03/13/2017 13:00 Temperature (F): 98.1 (Jasmyne Camp, RNC) Temperature (C): 36.7 ( system process) Temperature Route: Oral (Jasmyne Camp, RNC) Monitor Mode: External; Palpation (Jasmyne Camp, RNC) Frequency (min): 1-3 (Jasmyne Camp, RNC) Quality: Moderate (Jasmyne Camp, RNC) Duration (sec): 60-100 (Jasmyne Camp, RNC) Duration Criteria: Less than Two 120 Second Contractions (Jasmyne Camp, RNC) Pattern: Normal: <= 5 Contractions in 10 Minutes (Jasmyne Camp, RNC) Resting Tone (Palpate): Relaxed (Jasmyne Camp, RNC) Monitor Mode: External US; Auscultation (Jasmyne Camp, RNC) FHR Baseline Rate : 145 (Jasmyne Camp, RNC) FHR Baseline Changes: No Baseline Change (Jasmyne Camp, RNC) Variability: Moderate 6-25 bpm (Jasmyne Camp, RNC) Accelerations: 15X15 (Jasmyne Camp, RNC) Pain Scale: 3 (Jasmyne Camp, RNC) Pain Presence: Intermittent (Jasmyne Camp, RNC) Pain Type: Contraction (Jasmyne Camp, RNC) Pain Location: Back (Jasmyne Camp, RNC) Pain Relief Measures: Comfort Measures (Jasmyne Camp, RNC) Pain Coping: Breathing Through Contractions (Jasmyne Camp, RNC) Pain Assessment Comments: c/o increasing back pain, repositioned to hands and kness with application of heat and counter pressure by (Jasmyne Scales, RNC) Pitocin (milliunit): Pitocin Remains (milliunits) @ (Annotations: 16) (Jasmyne Scales, RNC) Patient Position/Activity: Hands-Knees (Jasmyne Scales, RNC) Comfort Measures: Breathing/Relaxation; Hot/Cold Pack (Jasmyne Scales, RNC) LaborFlag: Labor (QS system process) Datetime: 03/13/2017 12:45 Monitor Mode: External; Palpation (Jasmyne Scales, RN) Monitor Interventions for UA: [employer] Adjusted (Jasmyne Scales, RNC) Frequency (min): 1-4 (Jasmyne Scales, RNC) Quality: Mild/Moderate (Jasmyne Scales, RNC) Duration (sec): 50-80 (Jasmyne Scales, RNC) Duration Criteria: Less than Two 120 Second Contractions (Jasmyne Scales, RNC) Pattern: Normal: <= 5 Contractions in 10 Minutes (Jasmyne Scales, RNC) Resting Tone (Palpate): Relaxed (Jasmyne Scales, RNC) Monitor Mode: External US; Auscultation (Jasmyne Scales, RNC) FHR Baseline Rate : 140 (Jasmyne Scales, RNC) FHR Baseline Changes: No Baseline Change (Jasmynestanislav Scales, RNC) Variability: Moderate 6-25 bpm (Jasmyne Camp, RNC) Accelerations: 15X15 (Jasmyne Camp, RNC) Decelerations: None (Jasmyne Scales, RNC) Pitocin (milliunit): Pitocin Remains (milliunits) @ (Annotations: 16) (Jasmyne Camp, RNC) Datetime: 03/13/2017 12:41 NBP Sys/Marry/Mean (mmHg): 106 (QS system process) : 65 (QS system process) : 80 (QS system process) Pulse: 78 (QS system process) Respirations: 22 (Jasmyne Camp, RNC) LaborFlag: Labor (QS system process) Datetime: 03/13/2017 12:32 Patient Position/Activity: HOB Lowered; Left Extreme (Jasmyne Camp, RNC) Hygiene: Maribell Care; Underpad Changed (Jasmyne Camp, RNC) Datetime: 03/13/2017 12:30 Monitor Mode: External; Palpation (Nerissa Pyle RNC) Frequency (min): 2-3 (Nerissa Pyle, RNC) Quality: Mild/Moderate (Nerissa Pyle, RNC) Duration (sec): 60-90 (Nerissaomar Pyle, RNC) Duration Criteria: Less than Two 120 Second Contractions (Nerissa Pyle, RNC) Pattern: Normal: <= 5 Contractions in 10 Minutes (Nerissa Pyle, RNC) Resting Tone (Palpate): Relaxed (Nerissa Pyle, RNC) Monitor Mode: External US (Nerissa Pyle, RNC) FHR Baseline Rate : 145 (Nerissa Pyle, RNC) Variability: Moderate 6-25 bpm (Nerissa Edenilson, RNC) Accelerations: Prolonged (Nerissa Pyle, RNC) Decelerations: None (Nerissa Pyle, RNC) Pitocin (milliunit): Pitocin Decreased to (milliunits) @ 16 (Jasmyne Yordy, [facility]) Datetime: 03/13/2017 12:27 Dilatation (cm): 4.0 ([facility], [facility]) Effacement (%): 80 ([facility], [facility]) Station: -1 ([facility]) Exam by: Dario Casas ([facility], [facility]) Membrane Status: Ruptured ([facility], [facility]) Membranes Rupture Method: Artificial ([facility], [facility]) Amniotic Fluid Color: Clear ([facility], [facility]) Amniotic Fluid Amount: Small ([facility], [facility]) Amniotic Fluid Odor: Normal (Jasmyne Camp, RNC) Vaginal Bleeding: Scant (Jasmyne Camp, RNC) Cervix, Consistency: Soft (Jasmyne Camp, RNC) Cervix, Position: Posterior (Jasmyne Camp, RNC) Datetime: 03/13/2017 12:15 Monitor Mode: External; Palpation (Nerissa Pyle, RNC) Frequency (min): 2-3 (Nerissa Pyle, RNC) Quality: Mild/Moderate (Nerissa Pyle, RNC) Duration (sec): 60-90 (Nerissaomar Pyle, RNC) Duration Criteria: Less than Two 120 Second Contractions (Nerissa Pyle, RNC) Pattern: Normal: <= 5 Contractions in 10 Minutes (Nerissaomar Pyle, RNC) Resting Tone (Palpate): Relaxed (Nerissa Pyle, RNC) Monitor Mode: External US (Nerissa Pyle, RNC) FHR Baseline Rate : 140 (Nerissaomar Pyle, RNC) Variability: Moderate 6-25 bpm (Nerissa Edenilson, RNC) Accelerations: 15X15 (Nerissa Edenilson, RNC) Decelerations: None (Nerissa Pyle, RNC) Pitocin (milliunit): Pitocin Remains (milliunits) @ (Annotations: 20) (Jasmyne Camp, RNC) Datetime: 03/13/2017 12:11 I/O Interventions: Up to BR (Jasmyne Camp, RNC) Datetime: 03/13/2017 12:02 Monitor Mode: External; Palpation (Jasmyne Camp, RNC) Monitor Interventions for UA: [employer] Adjusted (Jasmyne Camp, RNC) Frequency (min): 1-3 (Jasmyne Camp, RNC) Quality: Mild/Moderate (Jasmyne Camp, RNC) Duration (sec): 60-90 (Jasmyne Camp, RNC) Duration Criteria: Less than Two 120 Second Contractions (Jasmyne Camp, RNC) Pattern: Normal: <= 5 Contractions in 10 Minutes (Jasmyne Camp, RNC) Resting Tone (Palpate): Relaxed (Jasmyne Camp, RNC) Monitor Mode: External US; Auscultation (Jasmyne Camp, RNC) FHR Baseline Rate : 145 (Jasmyne Camp, RNC) FHR Baseline Changes: No Baseline Change (Jasmyne Camp, RNC) Variability: Moderate 6-25 bpm (Jasmyne Camp, RNC) Accelerations: 15X15 (Jasmyne Camp, RNC) Decelerations: None (Jasmyne Camp, RNC) Datetime: 03/13/2017 12:00 Monitor Mode: External; Palpation (Nerissa Edenilson, RNC) Frequency (min): 2-3 (Nerissa Edenilson, RNC) Quality: Mild/Moderate (Nerissa Edenilson, RNC) Duration (sec): 60-90 (Nerissa Edenilson, RNC) Duration Criteria: Less than Two 120 Second Contractions (Nerissa Edenilson, RNC) Pattern: Normal: <= 5 Contractions in 10 Minutes (Nerissa Edenilson, RNC) Resting Tone (Palpate): Relaxed (Nerissa Edenilson, RNC) Monitor Mode: External US (Nerissa Edenilson, RNC) FHR Baseline Rate : 145 (Nerissa Edenilson, RNC) Variability: Moderate 6-25 bpm (Nerissa Edenilson, RNC) Accelerations: 15X15 (Nerissa Edenilson, RNC) Decelerations: None (Nerissaomar Pyle, RNC) Pitocin (milliunit): Pitocin Remains (milliunits) @ (Annotations: 20) (RODNEY Hair) Datetime: 03/13/2017 11:45 Monitor Mode: External; Palpation (Nerissa Edenilson, RNC) Frequency (min): 2-3.5 (Nerissa Edenilson, RNC) Quality: Mild/Moderate (Nerissa Edenilson, RNC) Duration (sec): 60-90 (Nerissa Edenilson, RNC) Duration Criteria: Less than Two 120 Second Contractions (Nerissa Pyle, RNC) Pattern: Normal: <= 5 Contractions in 10 Minutes (Nerissa Pyle, RNC) Resting Tone (Palpate): Relaxed (Nerissa Pyle, RNC) Monitor Mode: External US (Nerissa Pyle, RNC) FHR Baseline Rate : 145 (Nerissaomar Pyle, RNC) Variability: Moderate 6-25 bpm (Nerissa Edenilson, RNC) Accelerations: 15X15 (Nerissa Edenilson, RNC) Decelerations: None (Nerissa Pyle, RNC) Pitocin (milliunit): Pitocin Remains (milliunits) @ (Annotations: 20) (Jasmyne Scales, RNC) Datetime: 03/13/2017 11:41 NBP Sys/Marry/Mean (mmHg): 117 (QS system process) : 70 (QS system process) : 87 (QS system process) Pulse: 90 (QS system process) Respirations: 22 (Jasmyne Yordy, RNC) LaborFlag: Labor (QS system process) Datetime: 03/13/2017 11:30 Monitor Mode: External; Palpation (Nerissa Pyle, NOEMIC) Frequency (min): 2-2.5 (Nerissa Pyle, NOEMIC) Quality: Mild/Moderate (Nerissa Pyle, RNC) Duration (sec): 60-90 (Nerissa Pyle, RNC) Duration Criteria: Less than Two 120 Second Contractions (Nerissa Pyle, RNC) Pattern: Normal: <= 5 Contractions in 10 Minutes (Nerissa Pyle, RNC) Resting Tone (Palpate): Relaxed (Nerissa Pyle, RNC) Monitor Mode: External US (Nerissa Pyle, RNC) FHR Baseline Rate : 140 (Nerissa Pyle, RNC) Variability: Moderate 6-25 bpm (Nerissa Pyle, RNC) Accelerations: 15X15 (Nerissa Pyle, RNC) Decelerations: None (Nerissa Pyle, RNC) Pitocin (milliunit): Pitocin Remains (milliunits) @ (Annotations: 20) (RODNEY Hair) Datetime: 03/13/2017 11:18 Provider Reviewed Strip: Yes (RODNEY Hair) Communication: Provider at Bedside (RODNEY Hair) Communication Comments: H Augusto CNM to bedside for assessment and review POC (RODNEY Hair) Datetime: 03/13/2017 11:15 Monitor Mode: External; Palpation (Nerissa Pyle, RNC) Frequency (min): 2.5-3 (Nerissa Pyle, RNC) Quality: Mild/Moderate (Nerissa Pyle, RNC) Duration (sec): 60-90 (Nerissa Pyle, RNC) Duration Criteria: Less than Two 120 Second Contractions (Nerissa Pyle, RNC) Pattern: Normal: <= 5 Contractions in 10 Minutes (Nerissa Pyle, RNC) Resting Tone (Palpate): Relaxed (Nerissa Pyle, RNC) Monitor Mode: External US (Nerissa Pyle, RNC) FHR Baseline Rate : 140 (Nerissa Pyle, RNC) Variability: Moderate 6-25 bpm (Nerissaomar Pyle, RNC) Accelerations: 15X15 (Nerissa Pyle, RNC) Decelerations: None (Nerissa Pyle, RNC) Pain Scale: 2 (Jasmyne Camp, RNC) Pain Presence: Intermittent (Jasmyne Yordy, RNC) Pain Type: Contraction (Jasmyne Camp, RNC) Pain Location: Abdomen (Jasmyne Camp, RNC) Pain Goal: 2 (Jasmyne Camp, RNC) Pain Relief Measures: Comfort Measures (Jasmyne Camp, RNC) Pain Coping: Talking Through Contractions; Declines Medication or Epidural (Jasmyne Camp, RNC) Pitocin (milliunit): Pitocin Remains (milliunits) @ (Annotations: 20) (Jasmyne Camp, RNC) LaborFlag: Labor (QS system process) Datetime: 03/13/2017 11:13 Communication: Report Given to @ Dr Camacho< H Augusto CNM (Jasmyne Camp, RNC) Communication Comments: given verbal report of max dose Pitocin @ 20 units (Jasmyne Camp, RNC) Datetime: 03/13/2017 11:09 Monitor Interventions for UA: [employer] Adjusted (Jasmyne Camp, RNC) Monitor Interventions for FHR: Ultrasound Adjusted (Jasmyne Camp, RNC) Patient Position/Activity: Birthing Ball (Jasmyne Camp, RNC) Datetime: 03/13/2017 11:03 I/O Interventions: Up to BR (Jasmyne Camp, RNC) Datetime: 03/13/2017 11:00 Temperature (F): 98.9 (Jasmyne Camp, RNC) Temperature (C): 37.2 (QS system process) Duration Criteria: Less than Two 120 Second Contractions (Jasmyne Camp, RNC) Resting Tone (Palpate): Relaxed (Jasmyne Camp, RNC) Monitor Mode: External US; Auscultation (Jasmyne Camp, RNC) FHR Baseline Rate : 140 (Jasmyne Camp, RNC) FHR Baseline Changes: No Baseline Change (Jasmyne Camp, RNC) Variability: Moderate 6-25 bpm (Jasmyne Camp, RNC) Accelerations: 15X15 (Jasmyne Camp, RNC) Decelerations: None (Jasmyne Camp, RNC) Pitocin (milliunit): Pitocin Increased to (milliunits) @ (Annotations: 20) (Jasmyne Camp, RNC) LaborFlag: Labor (QS system process) Datetime: 03/13/2017 10:45 Monitor Mode: External; Palpation (Jasmyne Camp, RNC) Monitor Interventions for UA: [employer] Adjusted (Jasmyne Camp, RNC) Frequency (min): 1-4 (Jasmyne Camp, RNC) Quality: Mild (Jasmyne Camp, RNC) Duration (sec): 60-100 (Jasmyne Camp, RNC) Duration Criteria: Less than Two 120 Second Contractions (Jasmyne Camp, RNC) Pattern: Normal: <= 5 Contractions in 10 Minutes (Jasmyne Camp, RNC) Resting Tone (Palpate): Relaxed (Jasmyne Camp, RNC) Monitor Mode: External US; Auscultation (Jasmyne Camp, RNC) FHR Baseline Rate : 135 (Jasmyne Camp, RNC) FHR Baseline Changes: No Baseline Change (Jasmyne Camp, RNC) Variability: Moderate 6-25 bpm (Jasmyne Camp, RNC) Accelerations: 15X15 (Jasmyne Camp, RNC) Decelerations: None (Jasmyne Camp, RNC) Pitocin (milliunit): Pitocin Increased to (milliunits) @ (Annotations: 18) (Jasmyne Camp, RNC) Datetime: 03/13/2017 10:41 NBP Sys/Marry/Mean (mmHg): 110 (QS system process) : 71 (QS system process) : 85 (QS system process) Pulse: 78 (QS system process) Respirations: 18 (Jasmyne Camp, RNC) LaborFlag: Labor (QS system process) Datetime: 03/13/2017 10:30 Monitor Mode: External; Palpation (Jasmyne Camp, RNC) Monitor Interventions for UA: [employer] Adjusted (Jasmyne Camp, RNC) Frequency (min): 2-4 (Jasmyne Camp, RNC) Quality: Mild (Jasmyne Camp, RNC) Duration (sec): 50-100 (Jasmyne Camp, RNC) Duration Criteria: Less than Two 120 Second Contractions (Jasmyne Camp, RNC) Pattern: Normal: <= 5 Contractions in 10 Minutes (Jasmyne Camp, RNC) Resting Tone (Palpate): Relaxed (Jasmyne Camp, RNC) Contraction Comments: couplets noted (Jasmyne Camp, RNC) Monitor Mode: External US; Auscultation (Jasmyne Camp, RNC) FHR Baseline Rate : 140 (Jasmyne Camp, RNC) FHR Baseline Changes: No Baseline Change (Jasmyne Camp, RNC) Variability: Minimal - Undetectable to <=5 bpm (Jasmyne Camp, RNC) Accelerations: None (Jasmyne Camp, RNC) Decelerations: None (Jasmyne Camp, RNC) Pitocin (milliunit): Pitocin Increased to (milliunits) @ (Annotations: 16) (Jasmyne Camp, RNC) Datetime: 03/13/2017 10:24 NBP Sys/Marry/Mean (mmHg): 110 (QS system process) : 64 (QS system process) : 80 (QS system process) Pulse: 86 (QS system process) Respirations: 18 (Jasmyne Camp, RNC) LaborFlag: Labor (QS system process) Datetime: 03/13/2017 10:15 Monitor Mode: External; Palpation (Nerissa Edenilson, RNC) Frequency (min): 2-3 (Nerissa Edenilson, RNC) Quality: Mild/Moderate (Nerissa Edenilson, RNC) Duration (sec): 60-90 (Nerissa Edenilson, RNC) Duration Criteria: Less than Two 120 Second Contractions (Nerissa Edenilson, RNC) Pattern: Normal: <= 5 Contractions in 10 Minutes (Nerissa Edenilson, RNC) Resting Tone (Palpate): Relaxed (Nerissa Edenilson, RNC) Monitor Mode: External US (Nerissa Edenilson, RNC) FHR Baseline Rate : 135 (Nerissa Edenilson, RNC) Variability: Moderate 6-25 bpm (Nerissa Edenilson, RNC) Accelerations: 15X15 (Nerissa Edenilson, RNC) Decelerations: None (Nerissa Edenilson, RNC) Pitocin (milliunit): Pitocin Increased to (milliunits) @ (Annotations: 14) (Jasmyne Camp, RNC) Datetime: 03/13/2017 10:00 Monitor Mode: External; Palpation (Jasmyne Camp, RNC) Frequency (min): 3-4 (Jasmyne Camp, RNC) Quality: Mild (Jasmyne Camp, RNC) Duration (sec): 80-100 (Jasmyne Camp, RNC) Duration Criteria: Less than Two 120 Second Contractions (Jasmyne Camp, RNC) Pattern: Normal: <= 5 Contractions in 10 Minutes (Jasmyne Camp, RNC) Resting Tone (Palpate): Relaxed (Jasmyne Camp, RNC) Monitor Mode: External US; Auscultation (Jasmyne Camp, RNC) FHR Baseline Rate : 140 (Jasmyne Camp, RNC) FHR Baseline Changes: No Baseline Change (Jasmyne Camp, RNC) Variability: Moderate 6-25 bpm (Jasmyne Camp, RNC) Accelerations: 15X15 (Jasmyne Camp, RNC) Decelerations: None (Jasmyne Camp, RNC) Pitocin (milliunit): Pitocin Remains (milliunits) @ (Annotations: 12) (Jasmyne Camp, RNC) Datetime: 03/13/2017 09:58 I/O Interventions: Clear Liquids Given (Jasmyne Camp, RNC) Datetime: 03/13/2017 09:45 Monitor Mode: External; Palpation (Jasmyne Camp, RNC) Frequency (min): 3-5 (Jasmyne Camp, RNC) Quality: Mild/Moderate (Jasmyne Camp, RNC) Duration (sec): 60-70 (Jasmyne Camp, RNC) Duration Criteria: Less than Two 120 Second Contractions (Jasmyne Camp, RNC) Pattern: Normal: <= 5 Contractions in 10 Minutes (Jasmyne Camp, RNC) Resting Tone (Palpate): Relaxed (Jasmyne Camp, RNC) Monitor Mode: External US; Auscultation (Jasmyne Camp, RNC) FHR Baseline Rate : 140 (Jasmyne Camp, RNC) FHR Baseline Changes: No Baseline Change (Jasmyne Camp, RNC) Variability: Moderate 6-25 bpm (Jasmyne Camp, RNC) Accelerations: 15X15 (Jsamyne Camp, RNC) Decelerations: None (Jasmyne Camp, RNC) Pitocin (milliunit): Pitocin Increased to (milliunits) @ (Annotations: 12) (Jasmyne Camp, RNC) I/O Interventions: Popsicle (Jasmyne Camp, RNC) Patient Care Comments: repositioned to rocking chair, toco and u/s adjusted (Jasmyne Camp, RNC) Datetime: 03/13/2017 09:40 Hygiene: Maribell Care; Underpad Changed (Jasmyne Camp, RNC) I/O Interventions: Up to BR (Jasmyne Camp, RNC) Datetime: 03/13/2017 09:30 Monitor Mode: External; Palpation (Jasmyne Camp, RNC) Frequency (min): 4-5 (Jasmyne Camp, RNC) Quality: Mild (Jasmyne Camp, RNC) Duration (sec): 60-70 (Jasmyne Camp, RNC) Duration Criteria: Less than Two 120 Second Contractions (Jasmyne Camp, RNC) Pattern: Normal: <= 5 Contractions in 10 Minutes (Jasmyne Camp, RNC) Resting Tone (Palpate): Relaxed (Jasmyne Camp, RNC) Monitor Mode: External US; Auscultation (Jasmyne Camp, RNC) FHR Baseline Rate : 135 (Jasmyne Camp, RNC) FHR Baseline Changes: No Baseline Change (Jasmyne Camp, RNC) Variability: Moderate 6-25 bpm (Jasmyne Camp, RNC) Accelerations: 15X15 (Jasmyne Camp, RNC) Decelerations: None (Jasmyne Camp, RNC) Pitocin (milliunit): Pitocin Increased to (milliunits) @ (Annotations: 10) (Jasmyne Camp, RNC) Datetime: 03/13/2017 09:15 Monitor Mode: External; Palpation (Jasmyne Camp, RNC) Monitor Interventions for UA: [employer] Adjusted (Jasmyne Camp, RNC) Frequency (min): 2-5 (Jasmyne Camp, RNC) Quality: Mild (Jasmyne Camp, RNC) Duration (sec): 50-80 (Jasmyne Camp, RNC) Duration Criteria: Less than Two 120 Second Contractions (Jasmyne Camp, RNC) Pattern: Normal: <= 5 Contractions in 10 Minutes (Jasmyne Camp, RNC) Resting Tone (Palpate): Relaxed (Jasmyne Camp, RNC) Contraction Comments: RN at bedside adjusting monitors (Jasmyne Camp, RNC) Monitor Mode: External US; Auscultation (Jasmyne Camp, RNC) FHR Baseline Rate : 140 (Jasmyne Camp, RNC) FHR Baseline Changes: No Baseline Change (Jasmyne Camp, RNC) Variability: Moderate 6-25 bpm (Jasmyne Camp, RNC) Accelerations: 15X15 (Jasmyne Camp, RNC) Decelerations: None (Jasmyne Camp, RNC) Pain Scale: 0 (Jasmyne Camp, RNC) Pain Presence: None/Denies (Jasmyne Camp, RNC) Pain Type: N/A (Jasmyne Camp, RNC) Pain Assessment Comments: unaware of contractions (Jasmyne Camp, RNC) Pitocin (milliunit): Pitocin Increased to (milliunits) @ (Annotations: 8) (Jasmyne Camp, RNC) LaborFlag: Labor (QS system process) Datetime: 03/13/2017 09:11 NBP Sys/Marry/Mean (mmHg): 98 (QS system process) : 57 (QS system process) : 74 (QS system process) Pulse: 80 (QS system process) Respirations: 20 (Jasmyne Camp, RNC) LaborFlag: Labor (QS system process) Datetime: 03/13/2017 09:00 Monitor Mode: External; Palpation (Jasmyne Camp, RNC) Frequency (min): 5-7 (Jasmyne Camp, RNC) Quality: Mild (Jasmyne Camp, RNC) Duration (sec): 60-70 (Jasmyne Camp, RNC) Duration Criteria: Less than Two 120 Second Contractions (Jasmyne Camp, RNC) Pattern: Normal: <= 5 Contractions in 10 Minutes (Jasmyne Camp, RNC) Resting Tone (Palpate): Relaxed (Jasmyne Camp, RNC) Monitor Mode: External US; Auscultation (Jasmyne Camp, RNC) FHR Baseline Rate : 140 (Jasmyne Camp, RNC) FHR Baseline Changes: No Baseline Change (Jasmyne Camp, RNC) Variability: Moderate 6-25 bpm (Jasmyne Camp, RNC) Accelerations: 15X15 (Jasmyne Camp, RNC) Decelerations: None (Jasmyne Camp, RNC) Pitocin (milliunit): Pitocin Increased to (milliunits) @ 6 (Jasmnye Camp, RNC) Datetime: 03/13/2017 08:50 Patient Position/Activity: Left Lateral (Jasmyne Camp, RNC) Datetime: 03/13/2017 08:45 Monitor Mode: External; Palpation (Jasmyne Camp, RNC) Frequency (min): 5-7 (Jasmyne Camp, RNC) Quality: Mild (Jasmyne Camp, RNC) Duration (sec): 60-70 (Jasmyne Camp, RNC) Duration Criteria: Less than Two 120 Second Contractions (Jasmyne Camp, RNC) Pattern: Normal: <= 5 Contractions in 10 Minutes (Jasmyne Camp, RNC) Resting Tone (Palpate): Relaxed (Jasmyne Camp, RNC) Monitor Mode: External US; Auscultation (Jasmyne Camp, RNC) FHR Baseline Rate : 140 (Jasmyne Camp, RNC) FHR Baseline Changes: No Baseline Change (Jasmyne Camp, RNC) Variability: Moderate 6-25 bpm (Jasmyne Camp, RNC) Accelerations: 15X15 (Jasmyne Camp, RNC) Decelerations: None (Jasmyne Camp, RNC) Pitocin (milliunit): Pitocin Remains (milliunits) @ 4 (Jasmyne Camp, RNC) Datetime: 03/13/2017 08:39 I/O Interventions: Up to BR (Jasmyne Camp, RNC) Datetime: 03/13/2017 08:30 Monitor Mode: External; Palpation (Jasmyne Camp, RNC) Frequency (min): 5-8 (Jasmyne Camp, RNC) Quality: Mild (Jasmyne Camp, RNC) Duration (sec): 60-80 (Jasmyne Camp, RNC) Duration Criteria: Less than Two 120 Second Contractions (Jasmyne Camp, RNC) Pattern: Normal: <= 5 Contractions in 10 Minutes (Jasmyne Camp, RNC) Resting Tone (Palpate): Relaxed (Jasmyne Camp, RNC) Monitor Mode: External US; Auscultation (Jasmyne Camp, RNC) FHR Baseline Rate : 140 (Jasmyne Camp, RNC) FHR Baseline Changes: No Baseline Change (Jasmyne Camp, RNC) Variability: Moderate 6-25 bpm (Jasmyne Camp, RNC) Accelerations: 15X15 (Jasmyne Camp, RNC) Decelerations: None (Jasmyne Camp, RNC) Pitocin (milliunit): Pitocin Increased to (milliunits) @ 4 (Jasmyne Camp, RNC) IV/Blood Work: IV Infusing per Order (Jasmyne Camp, RNC) IV/Blood Work: IV Bolus Given ml @ 300 (Jasmyne Camp, RNC) Patient Care Comments: rate decreased to 125ml/hr (Jasmyne Camp, RNC) Datetime: 03/13/2017 08:15 Monitor Mode: External; Palpation (Jasmyne Camp, RNC) Frequency (min): irregular (Jasmyne Camp, RNC) Quality: Mild (Jasmyen Camp, RNC) Duration (sec): 60-110 (Jasmyne Camp, RNC) Duration Criteria: Less than Two 120 Second Contractions (Jasmyne Camp, RNC) Pattern: Normal: <= 5 Contractions in 10 Minutes (Jasmyne Camp, RNC) Resting Tone (Palpate): Relaxed (Jasmyne Camp, RNC) Monitor Mode: External US; Auscultation (Jasmyne Camp, RNC) FHR Baseline Rate : 145 (Jasmyne Camp, RNC) FHR Baseline Changes: No Baseline Change (Jasmyne Camp, RNC) Variability: Moderate 6-25 bpm (Jasmyne Camp, RNC) Accelerations: Prolonged (Jasmyne Camp, RNC) Decelerations: None (Jasmyne Camp, RNC) Pitocin (milliunit): Pitocin Started (milliunits) @ 2 (Jasmyne Camp, RNC) Instructional Method: Verbal; Patient Instructed; Family/Support Person Instructed; Verbalized Understanding (Jasmyne Camp, RNC) Medications: Pitocin (Jasmyne Camp, RNC) Datetime: 03/13/2017 08:11 NBP Sys/Marry/Mean (mmHg): 93 (QS system process) : 61 (QS system process) : 72 (QS system process) Pulse: 88 (QS system process) Respirations: 20 (Jasmyne Camp, RNC) LaborFlag: Labor (QS system process) Datetime: 03/13/2017 08:09 Dilatation (cm): 2.5 (Jasmyne Revelo, RNC) Effacement (%): 80 (Jasmyne Revelo, RNC) Station: -1 ([facility], [facility]) Exam by: Yordy S (Jasmyne Revelo, [facility]) Vaginal Bleeding: Small (Jasmyne Revelo, RN) Cervix, Consistency: Soft (Jasmyne Revelo, RN) Cervix, Position: Midposition (Jasmyne Revelo, RNC) Lie 'A': Unable to Assess (Jasmyne Revelo, [facility]) Unit Routine: Consents Signed ([facility], [facility]) Datetime: 03/13/2017 08:00 Monitor Mode: External; Palpation (Jasmyne Revelo, RNC) Frequency (min): irregular (Jasmyne Camp, RNC) Quality: Mild (Jasmyne Camp, RNC) Duration (sec): 60-110 (Jasmyne Camp, RNC) Duration Criteria: Less than Two 120 Second Contractions (Jasmyne Camp, RNC) Pattern: Normal: <= 5 Contractions in 10 Minutes (Jasmyne Camp, RNC) Resting Tone (Palpate): Relaxed (Jasmyne Camp, RNC) Monitor Mode: External US; Auscultation (Jasmyne Camp, RNC) FHR Baseline Rate : 145 (Jasmyne Camp, RNC) FHR Baseline Changes: No Baseline Change (Jasmyne Camp, RNC) Variability: Moderate 6-25 bpm (Jasmyne Camp, RNC) Accelerations: Prolonged (Jasmyne Camp, RNC) Decelerations: None (Jasmyne Camp, RNC)
--- NOTE | 2017-03-13 20:02 | L&D Flow Sheet ---
LD Flowsheet Datetime Report Generated by CPN: 03/13/2017 20:00 Datetime: 03/13/2017 19:50 NBP Sys/Marry/Mean (mmHg): 128 (QS system process) : 69 (QS system process) : 92 (QS system process) Pulse: 109 (QS system process) Datetime: 03/13/2017 19:45 Temperature (F): 98.4 (Dyan Danielson RN) Temperature (C): 36.9 (QS system process) Temperature Route: Axillary (Dyan Erum, RN) Datetime: 03/13/2017 19:35 NBP Sys/Marry/Mean (mmHg): 94 (QS system process) : 66 (QS system process) : 74 (QS system process) Pulse: 125 (QS system process) Datetime: 03/13/2017 19:30 Pain Assessment Comments: states she is "sore" (Dyan Erum, RN) Datetime: 03/13/2017 19:19 NBP Sys/Marry/Mean (mmHg): 108 (QS system process) : 67 (QS system process) : 82 (QS system process) Pulse: 112 (QS system process) Datetime: 03/13/2017 19:10 Pain Scale: 1 (Jasmyne Camp, RNC) Pain Presence: Intermittent (Jasmyne Camp, RNC) Pain Type: Cramping (Jasmyne Camp, RNC) Pain Location: Abdomen (Jasmyne Camp, RNC) Pain Relief Measures: Comfort Measures (Annotations: ice pack to perineum) (Jasmyne Camp, RNC) Datetime: 03/13/2017 19:04 NBP Sys/Marry/Mean (mmHg): 105 (QS system process) : 67 (QS system process) : 81 (QS system process) Pulse: 108 (QS system process) Pain Scale: 2 (Jasmyne Camp, RNC) Pain Presence: Intermittent (Jasmyne Camp, RNC) Pain Type: Cramping (Jasmyne Camp, RNC) Pain Location: Abdomen (Jasmyne Camp, RNC) Pain Relief Measures: Comfort Measures (Jasmnye Camp, RNC) Pain Assessment Comments: no apparent distress noted (Jasmyne Camp, RNC) Datetime: 03/13/2017 18:49 NBP Sys/Marry/Mean (mmHg): 102 (QS system process) : 63 (QS system process) : 77 (QS system process) Pulse: 106 (QS system process) Respirations: 20 (Jasmyne Camp, RNC) Datetime: 03/13/2017 18:35 NBP Sys/Marry/Mean (mmHg): 112 (QS system process) : 55 (QS system process) : 79 (QS system process) Pulse: 110 (QS system process) Respirations: 18 (Jasmyne Camp, RNC) Pain Scale: 2 (Jasmyne Camp, RNC) Pain Presence: Intermittent (Jasmyne Camp, RNC) Pain Type: Cramping (Jasmyne Camp, RNC) Pain Location: Abdomen (Jasmyne Camp, RNC) Datetime: 03/13/2017 18:34 NBP Sys/Marry/Mean (mmHg): 120 (QS system process) : 57 (QS system process) : 78 (QS system process) Pulse: 130 (Annotations: Dr Camacho at bedside report of maternal hr 108-130 without symptoms or complaints. ) (Jasmyne Camp, RNC) Respirations: 18 (Jasmyne Camp, RNC) Datetime: 03/13/2017 18:19 NBP Sys/Marry/Mean (mmHg): 127 (QS system process) : 60 (QS system process) : 80 (QS system process) Pulse: 130 (QS system process) Respirations: 20 (Jasmyne Camp, RNC) Temperature Route: Oral (Jasmyne Camp, RNC) Datetime: 03/13/2017 18:04 NBP Sys/Marry/Mean (mmHg): 153 (QS system process) : 67 (QS system process) : 97 (QS system process) Pulse: 115 (QS system process) Respirations: 18 (Jasmyne Camp, RNC) Temperature (F): 98.4 (Jasmyne Camp, RNC) Temperature (C): 36.9 (QS system process) Temperature Route: Oral (Jasmyne Camp, RNC) Pain Scale: 0 (Jasmyne Camp, RNC) Pain Presence: None/Denies (Jasmyne Camp, RNC) Pain Type: N/A (Jasmyne Camp, RNC) Pain Assessment Comments: no apparent distress noted (Jasmyne Camp, RNC) Datetime: 03/13/2017 18:00 Stage of : Recovery (Jasmyne Camp, RNC) Datetime: 03/13/2017 17:49 Pushing Position: Pushing with Contractions; Pushing Right Side (Jasmyne Camp, RNC) Pushing Progress: Descent with Pushing; Presenting Part Visible (Jasmyne Camp, RNC) Stage 2 Comments: pushing effectively (Jasmyne Camp, RNC) Datetime: 03/13/2017 17:45 Monitor Mode: External; Palpation (Jasmyne Camp, RNC) Frequency (min): 1.5-3 (Jasmyne Camp, RNC) Quality: Moderate to Strong (Jasmyne Camp, RNC) Duration (sec): 60-100 (Jasmyne Camp, RNC) Duration Criteria: Less than Two 120 Second Contractions (Jasmyne Camp, RNC) Pattern: Normal: <= 5 Contractions in 10 Minutes (Jasmyne Camp, RNC) Resting Tone (Palpate): Relaxed (Jasmyne Camp, RNC) Monitor Mode: External US; Auscultation (Jasmyne Camp, RNC) FHR Baseline Rate : 140 (Jasmyne Camp, RNC) FHR Baseline Changes: No Baseline Change (Jasmyne Camp, RNC) Variability: Moderate 6-25 bpm (Jasmyne Camp, RNC) Decelerations: Variable (Jasmyne Camp, RNC) Datetime: 03/13/2017 17:33 Pitocin (milliunit): Pitocin Discontinued (Jasmyne Camp, RNC) Medication Comments: discontinued secondary to variable decels (Jasmyne Camp, RNC) Datetime: 03/13/2017 17:32 NBP Sys/Marry/Mean (mmHg): 109 (QS system process) : 65 (QS system process) : 79 (QS system process) Pulse: 105 (QS system process) Respirations: 20 (Jasmyne Camp, RNC) LaborFlag: Labor (QS system process) Datetime: 03/13/2017 17:30 Monitor Mode: External; Palpation (Jasmyne Camp, RNC) Frequency (min): 1.5-2 (Jasmyne Camp, RNC) Quality: Strong (Jasmyne Camp, RNC) Duration (sec): 70-100 (Jasmyne Camp, RNC) Duration Criteria: Less than Two 120 Second Contractions (Jasmyne Camp, RNC) Pattern: Normal: <= 5 Contractions in 10 Minutes (Jasmyne Camp, RNC) Resting Tone (Palpate): Relaxed (Jasmyne Camp, RNC) Monitor Mode: External US; Auscultation (Jasmyne Camp, RNC) FHR Baseline Rate : 145 (Jasmyne Camp, RNC) FHR Baseline Changes: No Baseline Change (Jasmyne Camp, RNC) Variability: Moderate 6-25 bpm (Jasmyne Camp, RNC) Accelerations: 15X15 (Jasmyne Camp, RNC) Decelerations: Variable (Jasmyne Camp, RNC) Datetime: 03/13/2017 17:27 Pushing Position: Pushing with Contractions; Pushing Left Side (Rosa Bellavance, RNC) Stage 2 Comments: RN and provider to remain at bedside throughout second stage continuously assessing fhr while pt pushes with contractions (Jasmyne Camp, RNC) Datetime: 03/13/2017 17:25 Pushing: Coached on Pushing; Urge to Push (Rosa Bellavance, RNC) Pushing Position: Pushing with Contractions (Rosa Bellavance, RNC) Datetime: 03/13/2017 17:23 Dilatation (cm): 10.0 (Jasmyne Camp, RNC) Effacement (%): 100 (Jasmyne Camp, RNC) Station: 2 (Jasmyne Camp, RN) Exam by: Augusto, H (Jasmyne Camp, RN) Vaginal Bleeding: Normal Show (Jasmyne Camp, [facility]) Datetime: 03/13/2017 17:18 NBP Sys/Marry/Mean (mmHg): 97 (QS system process) : 53 (QS system process) : 66 (QS system process) Pulse: 75 (QS system process) LaborFlag: Labor (QS system process) Datetime: 03/13/2017 17:15 Monitor Mode: External; Palpation (Jasmyne Camp, RNC) Frequency (min): 1-3 (Jasmyne Camp, RNC) Quality: Moderate to Strong (Jasmyne Camp, RNC) Duration (sec): 60-90 (Jasmyne Camp, RNC) Duration Criteria: Less than Two 120 Second Contractions (Jasmyne Camp, RNC) Pattern: Normal: <= 5 Contractions in 10 Minutes (Jasmyne Camp, RNC) Resting Tone (Palpate): Relaxed (Jasmyne Camp, RNC) Monitor Mode: External US; Auscultation (Jasmyne Camp, RNC) FHR Baseline Rate : 145 (Jasmyne Camp, RNC) FHR Baseline Changes: No Baseline Change (Jasmyne Camp, RNC) Variability: Moderate 6-25 bpm (Jasmyne Camp, RNC) Accelerations: 15X15 (Jasmyne Camp, RNC) Decelerations: Early (Jasmyne Camp, RNC) Datetime: 03/13/2017 17:02 NBP Sys/Mrary/Mean (mmHg): 93 (QS system process) : 50 (QS system process) : 68 (QS system process) Pulse: 78 (QS system process) Respirations: 18 (Jasmyne Camp, RNC) LaborFlag: Labor (QS system process) Datetime: 03/13/2017 17:00 Monitor Mode: External; Palpation (Jasmyne Camp, RNC) Frequency (min): 1-3 (Jasmyne Camp, RNC) Quality: Moderate to Strong (Jasmyne Camp, RNC) Duration (sec): 60-100 (Jasmyne Camp, RNC) Duration Criteria: Less than Two 120 Second Contractions (Jasmyne Camp, RNC) Resting Tone (Palpate): Relaxed (Jasmyne Camp, RNC) Monitor Mode: External US; Auscultation (Jasmyne Camp, RNC) FHR Baseline Rate : 140 (Jasmyne Camp, RNC) FHR Baseline Changes: No Baseline Change (Jasmyne Camp, RNC) Variability: Moderate 6-25 bpm (Jasmyne Camp, RNC) Accelerations: 10X10 (Jasmyne Camp, RNC) Decelerations: None (Jasmyne Camp, RNC) Pitocin (milliunit): Pitocin Remains (milliunits) @ (Annotations: 12) (Jasmyne Camp, RNC) Datetime: 03/13/2017 16:50 Pitocin (milliunit): Pitocin Decreased to (milliunits) @ 12 (Jasmyne Camp, RNC) Datetime: 03/13/2017 16:45 Monitor Mode: External; Palpation (Jasmyne Camp, RNC) Monitor Interventions for UA: [place] Adjusted (Jasmyne Camp, RNC) Frequency (min): 1-3 (Jasmyne Camp, RNC) Quality: Moderate to Strong (Jasmyne Camp, RNC) Duration (sec): 60-90 (Jasmyne Camp, RNC) Duration Criteria: Less than Two 120 Second Contractions (Jasmyne Camp, RNC) Pattern: Normal: <= 5 Contractions in 10 Minutes (Jasmyne Camp, RNC) Resting Tone (Palpate): Relaxed (Jasmyne Camp, RNC) Monitor Mode: External US; Auscultation (Jasmyne Camp, RNC) FHR Baseline Rate : 135 (Jasmyne Camp, RNC) FHR Baseline Changes: No Baseline Change (Jasmyne Camp, RNC) Variability: Moderate 6-25 bpm (Jasmyne Camp, RNC) Accelerations: 10X10 (Jasmyne Camp, RNC) Decelerations: Early (Jasmyne Camp, RNC) Pitocin (milliunit): Pitocin Remains (milliunits) @ (Jasmyne Camp, RNC) Pitocin (milliunit): Pitocin Remains (milliunits) @ (Annotations: 14) (Jasmyne Camp, RNC) Datetime: 03/13/2017 16:33 NBP Sys/Marry/Mean (mmHg): 110 (QS system process) : 53 (QS system process) : 76 (QS system process) Pulse: 79 (QS system process) Respirations: 17 (Jasmyne Camp, RNC) LaborFlag: Labor (QS system process) Datetime: 03/13/2017 16:30 Monitor Mode: External; Palpation (Ajsmyne Camp, RNC) Monitor Interventions for UA: [place] Adjusted (Jasmyne Camp, RNC) Frequency (min): 1-3 (Jasmyne Camp, RNC) Quality: Moderate to Strong (Jasmyne Camp, RNC) Duration (sec): 60-90 (Jasmyne Camp, RNC) Duration Criteria: Less than Two 120 Second Contractions (Jasmyne Camp, RNC) Pattern: Normal: <= 5 Contractions in 10 Minutes (Jasmyne Camp, RNC) Resting Tone (Palpate): Relaxed (Jasmyne Camp, RNC) Monitor Mode: External US; Auscultation (Jasmyne Camp, RNC) FHR Baseline Rate : 135 (Jasmyne Camp, RNC) FHR Baseline Changes: No Baseline Change (Jasmyne Camp, RNC) Variability: Moderate 6-25 bpm (Jasmyne Camp, RNC) Accelerations: 10X10 (Jasmyne Camp, RNC) Decelerations: Early (Jasmyne Camp, RNC) Dilatation (cm): 9.5 (Jasmyne Camp, RNC) Effacement (%): 100 (Jasmyne Camp, RNC) Station: 2 (Jasmyne Scales, RNC) Exam by: Demian Scales (Jasmyne Scales, RNC) Vaginal Bleeding: Normal Show (Jasmyne Scales, RNC) Pitocin (milliunit): Pitocin Remains (milliunits) @ (Annotations: 14) (Jasmyne Scales, RNC) Patient Position/Activity: Left Extreme; Peanut Ball (Jasmyne Camp, RNC) Communication Comments: Dr Camacho on unit aware of cervical change and station (Jasmyne Camp, RNC) Datetime: 03/13/2017 16:15 Monitor Mode: External; Palpation (Jasmyne Camp, RNC) Frequency (min): 1-2 (Jasmyne Camp, RNC) Quality: Moderate to Strong (Jasmyne Camp, RNC) Duration (sec): 70-100 (Jasmyne Camp, RNC) Duration Criteria: Less than Two 120 Second Contractions (Jasmyne Camp, RNC) Pattern: Normal: <= 5 Contractions in 10 Minutes (Jasmyne Camp, RNC) Resting Tone (Palpate): Relaxed (Jasmyne Camp, RNC) Monitor Mode: External US; Auscultation (Jasmyne Camp, RNC) FHR Baseline Rate : 140 (Jasmyne Camp, RNC) FHR Baseline Changes: No Baseline Change (Jasmyne Camp, RNC) Variability: Moderate 6-25 bpm (Jasmyne Camp, RNC) Decelerations: Early (Jasmyne Camp, RNC) Pitocin (milliunit): Pitocin Remains (milliunits) @ (Annotations: 14) (Jasmyne Camp, RNC) Datetime: 03/13/2017 16:02 NBP Sys/Marry/Mean (mmHg): 106 (QS system process) : 65 (QS system process) : 78 (QS system process) Pulse: 72 (QS system process) Respirations: 18 (Jasmyne Camp, RNC) LaborFlag: Labor (QS system process) Datetime: 03/13/2017 16:00 Monitor Mode: External; Palpation (Jasmyne Camp, RNC) Frequency (min): 1-2 (Jasmyne Camp, RNC) Quality: Moderate to Strong (Jasmyne Camp, RNC) Duration (sec): 70-100 (Jasmyne Camp, RNC) Duration Criteria: Less than Two 120 Second Contractions (Jasmyne Camp, RNC) Pattern: Normal: <= 5 Contractions in 10 Minutes (Jasmyne Camp, RNC) Resting Tone (Palpate): Relaxed (Jasmyne Camp, RNC) Monitor Mode: External US; Auscultation (Jasmyne Camp, RNC) FHR Baseline Rate : 140 (Jasmyne Camp, RNC) FHR Baseline Changes: No Baseline Change (Jasmyne Camp, RNC) Variability: Moderate 6-25 bpm (Jasmyne Camp, RNC) Accelerations: 15X15 (Jasmyne Camp, RNC) Decelerations: Early (Jasmyne Camp, RNC) Pitocin (milliunit): Pitocin Decreased to (milliunits) @ 14 (Jasmyne Camp, RNC) Medication Comments: Pitocin decreased secondary to tachysystole (Jasmyne Camp, RNC) Provider Reviewed Strip: Yes (Jasmyne Camp, RNC) Communication: Report Given to @ Dario Casas Hoffman, K (Jasmyne Camp, RNC) Communication Comments: report to providers on unit of increase in bloody show (Jasmyne Camp, RNC) Datetime: 03/13/2017 15:48 NBP Sys/Marry/Mean (mmHg): 92 (QS system process) : 52 (QS system process) : 69 (QS system process) Pulse: 72 (QS system process) Respirations: 17 (Jasmyne Camp, RNC) LaborFlag: Labor (QS system process) Datetime: 03/13/2017 15:45 Monitor Mode: External; Palpation (Jasmyne Camp, RNC) Frequency (min): 1-3 (Jasmyne Camp, RNC) Quality: Moderate to Strong (Jasmyne Camp, RNC) Duration (sec): 60-80 (Jasmyne Camp, RNC) Duration Criteria: Less than Two 120 Second Contractions (Jasmyne Camp, RNC) Pattern: Normal: <= 5 Contractions in 10 Minutes (Jasmyne Camp, RNC) Resting Tone (Palpate): Relaxed (Jasmyne Camp, RNC) Monitor Mode: External US; Auscultation (Jasmyne Camp, RNC) FHR Baseline Rate : 135 (Jasmyne Camp, RNC) FHR Baseline Changes: No Baseline Change (Jasmyne Camp, RNC) Variability: Moderate 6-25 bpm (Jasmyne Camp, RNC) Accelerations: 10X10 (Jasmyne Camp, RNC) Decelerations: None (Jasmyne Camp, RNC) Pitocin (milliunit): Pitocin Remains (milliunits) @ 16 (Jasmyne Camp, RNC) Datetime: 03/13/2017 15:33 NBP Sys/Marry/Mean (mmHg): 89 (QS system process) : 50 (QS system process) : 67 (QS system process) Pulse: 67 (QS system process) Respirations: 17 (Jasmyne Camp, RNC) LaborFlag: Labor (QS system process) Datetime: 03/13/2017 15:30 Monitor Mode: External; Palpation (Jasmyne Camp, RNC) Frequency (min): 1-3 (Jasmyne Camp, RNC) Quality: Moderate to Strong (Jasmyne Camp, RNC) Duration (sec): 70-100 (Jasmyne Camp, RNC) Duration Criteria: Less than Two 120 Second Contractions (Jasmyne Camp, RNC) Pattern: Normal: <= 5 Contractions in 10 Minutes (Jasmyne Camp, RNC) Resting Tone (Palpate): Relaxed (Jasmyne Camp, RNC) Contraction Comments: couplets noted (Jasmyne Camp, RNC) Monitor Mode: External US; Auscultation (Jasmyne Camp, RNC) FHR Baseline Rate : 130 (Jasmyne Camp, RNC) FHR Baseline Changes: No Baseline Change (Jasmyne Camp, RNC) Variability: Moderate 6-25 bpm (Jasmyne Camp, RNC) Accelerations: 15X15 (Jasmyne Camp, RNC) Decelerations: None (Jasmyne Camp, RNC) Pitocin (milliunit): Pitocin Remains (milliunits) @ 16 (Jasmyne Camp, RNC) Datetime: 03/13/2017 15:18 NBP Sys/Marry/Mean (mmHg): 91 (QS system process) : 54 (QS system process) : 69 (QS system process) Pulse: 69 (QS system process) Respirations: 17 (Jasmyne Camp, RNC) LaborFlag: Labor (QS system process) Datetime: 03/13/2017 15:15 Monitor Mode: External; Palpation (Jasmyne Camp, RNC) Frequency (min): 1.5-3 (Jasmyne Camp, RNC) Quality: Moderate to Strong (Jasmyne Camp, RNC) Duration (sec): 50-90 (Jasmyne Camp, RNC) Duration Criteria: Less than Two 120 Second Contractions (Jasmyne Camp, RNC) Pattern: Normal: <= 5 Contractions in 10 Minutes (Jasmyne Camp, RNC) Resting Tone (Palpate): Relaxed (Jasmyne Camp, RNC) Monitor Mode: External US; Auscultation (Jasmyne Camp, RNC) FHR Baseline Rate : 135 (Jasmyne Camp, RNC) FHR Baseline Changes: No Baseline Change (Jasmyne Camp, RNC) Variability: Moderate 6-25 bpm (Jasmyne Camp, RNC) Accelerations: 15X15 (Jasmyne Camp, RNC) Decelerations: None (Jasmyne Camp, RNC) Pitocin (milliunit): Pitocin Remains (milliunits) @ 16 (Jasmyne Camp, RNC) Datetime: 03/13/2017 15:02 NBP Sys/Marry/Mean (mmHg): 91 (QS system process) : 50 (QS system process) : 67 (QS system process) Pulse: 71 (QS system process) Respirations: 20 (Jasmyne Camp, RNC) LaborFlag: Labor (QS system process) Datetime: 03/13/2017 15:00 Temperature (F): 98.4 (Jasmyne Camp, RNC) Temperature (C): 36.9 (QS system process) Temperature Route: Oral (Jasmyne [place], RNC) Monitor Mode: External; [facility] Monitor Interventions for UA: [place] Adjusted (Jasmyne Camp, RNC) Frequency (min): 1.5-2 (Jasmyne Camp, RNC) Quality: Moderate to Strong (Jasmyne Camp, RNC) Duration (sec): 70-90 (Jasmyne Camp, RNC) Duration Criteria: Less than Two 120 Second Contractions (Jasmyne Camp, RNC) Pattern: Normal: <= 5 Contractions in 10 Minutes (Jasmyne Camp, RNC) Resting Tone (Palpate): Relaxed (Jasmyne Camp, RNC) Monitor Mode: External US; Auscultation (Jasmyne Camp, RNC) FHR Baseline Rate : 135 (Jasmyne Camp, RNC) FHR Baseline Changes: No Baseline Change (Jasmyne Camp, RNC) Variability: Moderate 6-25 bpm (Jasmyne Camp, RNC) Accelerations: 15X15 (Jasmyne Camp, RNC) Decelerations: None (Jasmyne Camp, RNC) Pain Scale: 0 (Jasmyne Camp, RNC) Pain Presence: None/Denies (Jasmyne Camp, RNC) Pain Type: N/A (Jasmyne Camp, RNC) Pain Relief Measures: Epidural Given (Jasmyne Camp, RNC) Pain Coping: Sleeping (Jasmyne Camp, RNC) Pitocin (milliunit): Pitocin Remains (milliunits) @ 16 (Jasmyne Camp, RNC) Patient Position/Activity: HOB Lowered; Left Extreme; Peanut Ball (Jasmyne Scales, RNC) Hygiene: Maribell Care; Underpad Changed (Jasmyne Camp, RNC) Anesthesia Level Check: T10- Umbilicus (Jasmyne Camp, RNC) LaborFlag: Labor (QS system process) Datetime: 03/13/2017 14:47 NBP Sys/Marry/Mean (mmHg): 104 (QS system process) : 55 (QS system process) : 74 (QS system process) Pulse: 70 (QS system process) Respirations: 20 (Jasmyne Camp, RNC) LaborFlag: Labor (QS system process) Datetime: 03/13/2017 14:45 Monitor Mode: External; Palpation (Jasmyne Camp, RNC) Frequency (min): 1.5-2 (Jasmyne Camp, RNC) Quality: Moderate (Jasmyne Camp, RNC) Duration (sec): 70-80 (Jasmyne Camp, RNC) Duration Criteria: Less than Two 120 Second Contractions (Jasmyne Camp, RNC) Resting Tone (Palpate): Relaxed (Jasmyne Camp, RNC) Monitor Mode: External US; Auscultation (Jasmyne Camp, RNC) FHR Baseline Rate : 135 (Jasmyne Camp, RNC) FHR Baseline Changes: No Baseline Change (Jasmyne Camp, RNC) Variability: Minimal - Undetectable to <=5 bpm (Jasmyne Camp, RNC) Decelerations: Early (Jasmyne Camp, RNC) Datetime: 03/13/2017 14:32 NBP Sys/Marry/Mean (mmHg): 107 (QS system process) : 57 (QS system process) : 78 (QS system process) Pulse: 68 (QS system process) Respirations: 18 (Jasmyne Camp, RNC) LaborFlag: Labor (QS system process) Datetime: 03/13/2017 14:30 Monitor Mode: External; Palpation (Jasmyne Camp, RNC) Frequency (min): 1-3 (Jasmyne Camp, RNC) Quality: Moderate to Strong (Jasmyne Camp, RNC) Duration (sec): 60-80 (Jasmyne Camp, RNC) Duration Criteria: Less than Two 120 Second Contractions (Jasmyne Camp, RNC) Pattern: Normal: <= 5 Contractions in 10 Minutes (Jasmyne Camp, RNC) Resting Tone (Palpate): Relaxed (Jasmyne Camp, RNC) Monitor Mode: External US; Auscultation (Jasmyne Camp, RNC) FHR Baseline Rate : 130 (Jasmyne Camp, RNC) FHR Baseline Changes: No Baseline Change (Jasmyne Camp, RNC) Variability: Moderate 6-25 bpm (Jasmyne Camp, RNC) Accelerations: 15X15 (Jasmyne Camp, RNC) Decelerations: None (Jasmyne Camp, RNC) Dilatation (cm): 5.5 (Jasmyne Camp, RNC) Effacement (%): 90 (Jasmyne [place], RNC) Station: 0 (Jasmyne [place], RNC) Exam by: Camp, S (Jasmyne [place], RNC) Vaginal Bleeding: Normal Show (Jasmyne [place], RNC) Cervix, Consistency: Soft (Jasmyne [place], RNC) Cervix, Position: Anterior ([facility], RNC) I/O Interventions: Olvera Cath Inserted ([facility], RNC) Patient Care Comments: olvera placed draining clear yellow urine, tolerated procedure well ([facility], RNC) Datetime: 03/13/2017 14:29 NBP Sys/Marry/Mean (mmHg): 98 (QS system process) : 50 (QS system process) : 67 (QS system process) Pulse: 67 (QS system process) Respirations: 18 (Jasmyne Camp, RNC) LaborFlag: Labor (QS system process) Datetime: 03/13/2017 14:17 NBP Sys/Marry/Mean (mmHg): 119 (QS system process) : 74 (QS system process) : 90 (QS system process) Pulse: 85 (QS system process) LaborFlag: Labor (QS system process) Datetime: 03/13/2017 14:15 NBP Sys/Marry/Mean (mmHg): 113 (QS system process) : 57 (QS system process) : 81 (QS system process) Pulse: 83 (QS system process) Respirations: 20 (Jasmyne Camp, RNC) Monitor Mode: External; Palpation (Jasmyne Camp, RNC) Frequency (min): 1-3 (Jasmyne Camp, RNC) Quality: Moderate to Strong (Jasmyne Camp, RNC) Duration (sec): 60-80 (Jasmyne Camp, RNC) Duration Criteria: Less than Two 120 Second Contractions (Jasmyne Camp, RNC) Pattern: Normal: <= 5 Contractions in 10 Minutes (Jasmyne Camp, RNC) Resting Tone (Palpate): Relaxed (Jasmyne Camp, RNC) Monitor Mode: External US; Auscultation (Jasmyne Camp, RNC) FHR Baseline Rate : 135 (Jasmyne Camp, RNC) FHR Baseline Changes: No Baseline Change (Jasmyne Camp, RNC) Variability: Minimal - Undetectable to <=5 bpm (Jasmyne Camp, RNC) Accelerations: 15X15 (Jasmyne Camp, RNC) Decelerations: None (Jasmyne Camp, RNC) Pitocin (milliunit): Pitocin Remains (milliunits) @ 16 (Jasmyne Camp, RNC) LaborFlag: Labor (QS system process) Datetime: 03/13/2017 14:14 NBP Sys/Marry/Mean (mmHg): 117 (QS system process) NBP Sys/Marry/Mean (mmHg): 119 (QS system process) : 57 (QS system process) : 60 (QS system process) : 81 (QS system process) : 80 (QS system process) Pulse: 83 (QS system process) Pulse: 87 (QS system process) LaborFlag: Labor (QS system process) Datetime: 03/13/2017 14:13 Epidural Procedure: Cath Placed (Jasmyne Camp, RNC) Datetime: 03/13/2017 14:12 NBP Sys/Marry/Mean (mmHg): 119 (QS system process) : 67 (QS system process) : 88 (QS system process) Pulse: 78 (QS system process) Anesthesia Plans: Epidural (Jasmyne Camp, RNC) Epidural Positioning: Sitting (Jasmyne Camp, RNC) Epidural Procedure: Test Dose; Loading Dose (Jasmyne Camp, RNC) LaborFlag: Labor (QS system process) Datetime: 03/13/2017 14:05 Instructional Method: Demo; Verbal; Written; Patient Instructed; Verbalized Understanding (Jasmyne Camp, RNC) Unit Routine: Consents Signed (Jasmyne Camp, RNC) Pain Management: Epidural (Jasmyne Camp, RNC) Teaching Comments: epidural consent reveiwed with risks (Jasmyne Camp, RNC) Datetime: 03/13/2017 14:04 Procedure Verify: Correct Patient Identity; Correct Side and Site are Marked; Accurate Procedure Consent Form; Agreement on Procedure to be Done; Correct Patient Position; Safety Precautions Based on Patient History or Medication Use (Jasmyne Camp, RNC) Anesthesia Plans: Epidural (Jasmyne Camp, RNC) Epidural Positioning: Sitting (Jasmyne Camp, RNC) Anesthesia Comments: Dr Murphy at bedside (Jasmyne Camp, RNC) Datetime: 03/13/2017 14:00 Monitor Mode: External; Palpation (Jasmyne Camp, RNC) Frequency (min): 1-3 (Jasmyne Camp, RNC) Quality: Moderate to Strong (Jasmyne Camp, RNC) Duration (sec): 60-80 (Jasmyne Camp, RNC) Duration Criteria: Less than Two 120 Second Contractions (Jasmyne Camp, RNC) Pattern: Normal: <= 5 Contractions in 10 Minutes (Jasmyne Camp, RNC) Resting Tone (Palpate): Relaxed (Jasmyne Camp, RNC) Monitor Mode: External US; Auscultation (Jasmyne Camp, RNC) FHR Baseline Rate : 135 (Jasmyne Camp, RNC) FHR Baseline Changes: No Baseline Change (Jasmyne Camp, RNC) Variability: Minimal - Undetectable to <=5 bpm (Jasmyne Camp, RNC) Accelerations: 15X15 (Jasmyne Camp, RNC) Decelerations: None (Jasmyne Camp, RNC) Pitocin (milliunit): Pitocin Remains (milliunits) @ 16 (Jasmyne Camp, RNC) IV/Blood Work: IV Infusing per Order (Jasmyne Camp, RNC) Datetime: 03/13/2017 13:52 Procedure Verify: Correct Patient Identity; Correct Side and Site are Marked; Accurate Procedure Consent Form (Jasmyne Camp, RNC) Anesthesia Plans: Epidural (Jasmyne Camp, RNC) Epidural Positioning: Sitting (Jasmyne Camp, RNC) Anesthesia Comments: repositioned to sitting for epidural (Jasmyne Camp, RNC) Datetime: 03/13/2017 13:48 IV/Blood Work: New IV Bag Hung (Jasmyne Camp, RNC) Datetime: 03/13/2017 13:45 Monitor Mode: External; Palpation (Jasmyne Camp, RNC) Frequency (min): 1.5-3 (Jasmyne Camp, RNC) Quality: Moderate to Strong (Jasmyne Camp, RNC) Duration (sec): 50-80 (Jasmyne Camp, RNC) Duration Criteria: Less than Two 120 Second Contractions (Jasmyne Camp, RNC) Pattern: Normal: <= 5 Contractions in 10 Minutes (Jasmyne Camp, RNC) Resting Tone (Palpate): Relaxed (Jasmyne Camp, RNC) Monitor Mode: External US; Auscultation (Jasmyne Camp, RNC) FHR Baseline Rate : 140 (Jasmyne Camp, RNC) FHR Baseline Changes: No Baseline Change (Jasmyne Camp, RNC) Variability: Moderate 6-25 bpm (Jasmyne Camp, RNC) Accelerations: 15X15 (Jasmyne Camp, RNC) Decelerations: None (Jasmyne Camp, RNC) Pitocin (milliunit): Pitocin Remains (milliunits) @ (Annotations: 16) (Jasmyne Camp, RNC) Datetime: 03/13/2017 13:44 Communication: RN at Bedside; Provider Orders Received (Jasmyne Camp, RNC) Communication Comments: Dario Casas CNM on unit order received for epidural placement (Jasmyne Camp, RNC) Datetime: 03/13/2017 13:43 Pain Scale: 4 (Jasmyne Camp, RNC) Pain Presence: Intermittent (Jasmyne Camp, RNC) Pain Type: Contraction (Jasmyne Camp, RNC) Pain Location: Back (Jasmyne Camp, RNC) Pain Goal: 2 (Jasmyne Camp, RNC) Pain Coping: Requesting Pain Medication or Epidural (Jasmyne Camp, RNC) Pain Assessment Comments: requests epidural placement for pain (Jasmyne Camp, RNC) Comfort Measures: Breathing/Relaxation; Coaching (Jasmyne Scales, RNC) LaborFlag: Labor (QS system process) Datetime: 03/13/2017 13:30 Monitor Mode: External; Palpation (RODNEY Khanna) Frequency (min): 2.5-3 (Nerissa Pyle RNC) Quality: Mild/Moderate (Nerissa Pyle RNC) Duration (sec): 60-90 (Nerissa Pyle RNC) Duration Criteria: Less than Two 120 Second Contractions (Nerissa Pyle RNC) Pattern: Normal: <= 5 Contractions in 10 Minutes (Nerissa Pyle RNC) Resting Tone (Palpate): Relaxed (Nerissa Pyle RNC) Monitor Mode: External US (RODNEY Khanna) FHR Baseline Rate : 135 (Nerissa Pyle RNC) Variability: Moderate 6-25 bpm (Nerissa Pyle RNC) Accelerations: 15X15 (Nerissa Pyle RNC) Decelerations: None (RODNEY Khanna) Pitocin (milliunit): Pitocin Remains (milliunits) @ (Annotations: 16) (Jasmyne Scales, C) Datetime: 03/13/2017 13:29 I/O Interventions: Up to BR (Jasmyne Scales, RNC) Datetime: 03/13/2017 13:15 Monitor Mode: External; Palpation (RODNEY Khanna) Frequency (min): 2.5-4 (RODNEY Khanna) Quality: Mild/Moderate (RODNEY Khanna) Duration (sec): 60-90 (RODNEY Khanna) Duration Criteria: Less than Two 120 Second Contractions (RODNEY Khanna) Pattern: Normal: <= 5 Contractions in 10 Minutes (RODNEY Khanna) Resting Tone (Palpate): Relaxed (RODNEY Khanna) Monitor Mode: External US (RODNEY Khanna) FHR Baseline Rate : 135 (RODNEY Khanna) Variability: Moderate 6-25 bpm (Nerissa Edenilson, RNC) Accelerations: None (Nerissa Pyle RNC) Decelerations: None (Nerissa Pyle RNC) Pitocin (milliunit): Pitocin Remains (milliunits) @ (Annotations: 16) (Jsamyne Camp, RNC) Datetime: 03/13/2017 13:00 Temperature (F): 98.1 (Jasmyne Camp, RNC) Temperature (C): 36.7 ( system process) Temperature Route: Oral (Jasmyne Camp, RNC) Monitor Mode: External; Palpation (Jasmyne Camp, RNC) Frequency (min): 1-3 (Jasmyne Camp, RNC) Quality: Moderate (Jasmyne Camp, RNC) Duration (sec): 60-100 (Jasmyne Camp, RNC) Duration Criteria: Less than Two 120 Second Contractions (Jasmyne Camp, RNC) Pattern: Normal: <= 5 Contractions in 10 Minutes (Jasmyne Camp, RNC) Resting Tone (Palpate): Relaxed (Jasmyne Camp, RNC) Monitor Mode: External US; Auscultation (Jasmyne Camp, RNC) FHR Baseline Rate : 145 (Jasmyne Camp, RNC) FHR Baseline Changes: No Baseline Change (Jasmyne Camp, RNC) Variability: Moderate 6-25 bpm (Jasmyne Camp, RNC) Accelerations: 15X15 (Jasmyne Camp, RNC) Pain Scale: 3 (Jasmyne Camp, RNC) Pain Presence: Intermittent (Jasmyne Camp, RNC) Pain Type: Contraction (Jasmyne Camp, RNC) Pain Location: Back (Jasmyne Camp, RNC) Pain Relief Measures: Comfort Measures (Jasmyne Camp, RNC) Pain Coping: Breathing Through Contractions (Jasmyne Camp, RNC) Pain Assessment Comments: c/o increasing back pain, repositioned to hands and kness with application of heat and counter pressure by (Jasmyne Scales, RNC) Pitocin (milliunit): Pitocin Remains (milliunits) @ (Annotations: 16) (Jasmyne Scales, RNC) Patient Position/Activity: Hands-Knees (Jasmyne Scales, RNC) Comfort Measures: Breathing/Relaxation; Hot/Cold Pack (Jasmyne Scales, RNC) LaborFlag: Labor (QS system process) Datetime: 03/13/2017 12:45 Monitor Mode: External; Palpation (Jasmyne Scales, RN) Monitor Interventions for UA: [place] Adjusted (Jasmyne Scales, RNC) Frequency (min): 1-4 (Jasmyne Scales, RNC) Quality: Mild/Moderate (Jasmyne Scales, RNC) Duration (sec): 50-80 (Jasmyne Scales, RNC) Duration Criteria: Less than Two 120 Second Contractions (Jasmyne Scales, RNC) Pattern: Normal: <= 5 Contractions in 10 Minutes (Jasmyne Scales, RNC) Resting Tone (Palpate): Relaxed (Jasmyne Scales, RNC) Monitor Mode: External US; Auscultation (Jasmyne Scales, RNC) FHR Baseline Rate : 140 (Jasmyne Scales, RNC) FHR Baseline Changes: No Baseline Change (Jasmynestanislav Scales, RNC) Variability: Moderate 6-25 bpm (Jasmyne Camp, RNC) Accelerations: 15X15 (Jasmyne Camp, RNC) Decelerations: None (Jasmyne Scales, RNC) Pitocin (milliunit): Pitocin Remains (milliunits) @ (Annotations: 16) (Jasmyne Camp, RNC) Datetime: 03/13/2017 12:41 NBP Sys/Marry/Mean (mmHg): 106 (QS system process) : 65 (QS system process) : 80 (QS system process) Pulse: 78 (QS system process) Respirations: 22 (Jasmyne Camp, RNC) LaborFlag: Labor (QS system process) Datetime: 03/13/2017 12:32 Patient Position/Activity: HOB Lowered; Left Extreme (Jasmyne Camp, RNC) Hygiene: Maribell Care; Underpad Changed (Jasmyne Camp, RNC) Datetime: 03/13/2017 12:30 Monitor Mode: External; Palpation (Nerissa Pyle RNC) Frequency (min): 2-3 (Nerissa Pyle, RNC) Quality: Mild/Moderate (Nerissa Pyle, RNC) Duration (sec): 60-90 (Nerissaomar Pyle, RNC) Duration Criteria: Less than Two 120 Second Contractions (Nerissa Pyle, RNC) Pattern: Normal: <= 5 Contractions in 10 Minutes (Nerissa Pyle, RNC) Resting Tone (Palpate): Relaxed (Nerissa Pyle, RNC) Monitor Mode: External US (Nerissa Pyle, RNC) FHR Baseline Rate : 145 (Nerissa Pyle, RNC) Variability: Moderate 6-25 bpm (Nerissa Edenilson, RNC) Accelerations: Prolonged (Nerissa Pyle, RNC) Decelerations: None (Nerissa Pyle, RNC) Pitocin (milliunit): Pitocin Decreased to (milliunits) @ 16 (Jasmyne Yordy, [facility]) Datetime: 03/13/2017 12:27 Dilatation (cm): 4.0 ([facility], [facility]) Effacement (%): 80 ([facility], [facility]) Station: -1 ([place]) Exam by: Dario Casas ([facility], [facility]) Membrane Status: Ruptured ([facility], [facility]) Membranes Rupture Method: Artificial ([facility], [facility]) Amniotic Fluid Color: Clear ([facility], [facility]) Amniotic Fluid Amount: Small ([facility], [facility]) Amniotic Fluid Odor: Normal (Jasmyne Camp, RNC) Vaginal Bleeding: Scant (Jasmyne Camp, RNC) Cervix, Consistency: Soft (Jasmyne Camp, RNC) Cervix, Position: Posterior (Jasmyne Camp, RNC) Datetime: 03/13/2017 12:15 Monitor Mode: External; Palpation (Nerissa Pyle, RNC) Frequency (min): 2-3 (Nerissa Pyle, RNC) Quality: Mild/Moderate (Nerissa Pyle, RNC) Duration (sec): 60-90 (Nerissaomar Pyle, RNC) Duration Criteria: Less than Two 120 Second Contractions (Nerissa Pyle, RNC) Pattern: Normal: <= 5 Contractions in 10 Minutes (Nerissaomar Pyle, RNC) Resting Tone (Palpate): Relaxed (Nerissa Pyle, RNC) Monitor Mode: External US (Nerissa Pyle, RNC) FHR Baseline Rate : 140 (Nerissaomar Pyle, RNC) Variability: Moderate 6-25 bpm (Nerissa Edenilson, RNC) Accelerations: 15X15 (Nerissa Edenilson, RNC) Decelerations: None (Nerissa Pyle, RNC) Pitocin (milliunit): Pitocin Remains (milliunits) @ (Annotations: 20) (Jasmyne Camp, RNC) Datetime: 03/13/2017 12:11 I/O Interventions: Up to BR (Jasmyne Camp, RNC) Datetime: 03/13/2017 12:02 Monitor Mode: External; Palpation (Jasmyne Camp, RNC) Monitor Interventions for UA: [place] Adjusted (Jasmyne Camp, RNC) Frequency (min): 1-3 (Jasmyne Camp, RNC) Quality: Mild/Moderate (Jasmyne Camp, RNC) Duration (sec): 60-90 (Jasmyne Camp, RNC) Duration Criteria: Less than Two 120 Second Contractions (Jasmyne Camp, RNC) Pattern: Normal: <= 5 Contractions in 10 Minutes (Jasmyne Camp, RNC) Resting Tone (Palpate): Relaxed (Jasmyne Camp, RNC) Monitor Mode: External US; Auscultation (Jasmyne Camp, RNC) FHR Baseline Rate : 145 (Jasmyne Camp, RNC) FHR Baseline Changes: No Baseline Change (Jasmyne Camp, RNC) Variability: Moderate 6-25 bpm (Jasmyne Camp, RNC) Accelerations: 15X15 (Jasmyne Camp, RNC) Decelerations: None (Jasmyne Camp, RNC) Datetime: 03/13/2017 12:00 Monitor Mode: External; Palpation (Nerissa Edenilson, RNC) Frequency (min): 2-3 (Nerissa Edenilson, RNC) Quality: Mild/Moderate (Nerissa Edenilson, RNC) Duration (sec): 60-90 (Nerissa Edenilson, RNC) Duration Criteria: Less than Two 120 Second Contractions (Nerissa Edenilson, RNC) Pattern: Normal: <= 5 Contractions in 10 Minutes (Nerissa Edenilson, RNC) Resting Tone (Palpate): Relaxed (Nerissa Edenilson, RNC) Monitor Mode: External US (Nerissa Edenilson, RNC) FHR Baseline Rate : 145 (Nerissa Edenilson, RNC) Variability: Moderate 6-25 bpm (Nerissa Edenilson, RNC) Accelerations: 15X15 (Nerissa Edenilson, RNC) Decelerations: None (Nerissaomar Pyle, RNC) Pitocin (milliunit): Pitocin Remains (milliunits) @ (Annotations: 20) (RODNEY Hari) Datetime: 03/13/2017 11:45 Monitor Mode: External; Palpation (Nerissa Edenilson, RNC) Frequency (min): 2-3.5 (Nerissa Edenilson, RNC) Quality: Mild/Moderate (Nerissa Edenilson, RNC) Duration (sec): 60-90 (Nerissa Edenilson, RNC) Duration Criteria: Less than Two 120 Second Contractions (Nerissa Pyle, RNC) Pattern: Normal: <= 5 Contractions in 10 Minutes (Nerissa Pyle, RNC) Resting Tone (Palpate): Relaxed (Nerissa Pyle, RNC) Monitor Mode: External US (Nerissa Pyle, RNC) FHR Baseline Rate : 145 (Nerissaomar Pyle, RNC) Variability: Moderate 6-25 bpm (Nerissa Edenilson, RNC) Accelerations: 15X15 (Nerissa Edenilson, RNC) Decelerations: None (Nerissa Pyle, RNC) Pitocin (milliunit): Pitocin Remains (milliunits) @ (Annotations: 20) (Jasmyne Scales, RNC) Datetime: 03/13/2017 11:41 NBP Sys/Marry/Mean (mmHg): 117 (QS system process) : 70 (QS system process) : 87 (QS system process) Pulse: 90 (QS system process) Respirations: 22 (Jasmyne Yordy, RNC) LaborFlag: Labor (QS system process) Datetime: 03/13/2017 11:30 Monitor Mode: External; Palpation (Nerissa Pyle, NOEMIC) Frequency (min): 2-2.5 (Nerissa Pyle, NOEMIC) Quality: Mild/Moderate (Nerissa Pyle, RNC) Duration (sec): 60-90 (Nerissa Pyle, RNC) Duration Criteria: Less than Two 120 Second Contractions (Nerissa Pyle, RNC) Pattern: Normal: <= 5 Contractions in 10 Minutes (Nerissa Pyle, RNC) Resting Tone (Palpate): Relaxed (Nerissa Pyle, RNC) Monitor Mode: External US (Nerissa Pyle, RNC) FHR Baseline Rate : 140 (Nerissa Pyle, RNC) Variability: Moderate 6-25 bpm (Nerissa Pyle, RNC) Accelerations: 15X15 (Nerissa Pyle, RNC) Decelerations: None (Nerissa Pyle, RNC) Pitocin (milliunit): Pitocin Remains (milliunits) @ (Annotations: 20) (RODNEY Hair) Datetime: 03/13/2017 11:18 Provider Reviewed Strip: Yes (RODNEY Hair) Communication: Provider at Bedside (RODNEY Hair) Communication Comments: H Augusto CNM to bedside for assessment and review POC (RODNEY Hair) Datetime: 03/13/2017 11:15 Monitor Mode: External; Palpation (Nerissa Pyle, RNC) Frequency (min): 2.5-3 (Nerissa Pyle, RNC) Quality: Mild/Moderate (Nerissa Pyle, RNC) Duration (sec): 60-90 (Nerissa Pyle, RNC) Duration Criteria: Less than Two 120 Second Contractions (Nerissa Pyle, RNC) Pattern: Normal: <= 5 Contractions in 10 Minutes (Nerissa Pyle, RNC) Resting Tone (Palpate): Relaxed (Nerissa Pyle, RNC) Monitor Mode: External US (Nerissa Pyle, RNC) FHR Baseline Rate : 140 (Nerissa Pyle, RNC) Variability: Moderate 6-25 bpm (Nerissaomar Pyle, RNC) Accelerations: 15X15 (Nerissa Pyle, RNC) Decelerations: None (Nerissa Pyle, RNC) Pain Scale: 2 (Jasmyne Camp, RNC) Pain Presence: Intermittent (Jasmyne Yordy, RNC) Pain Type: Contraction (Jasmyne Camp, RNC) Pain Location: Abdomen (Jasmyne Camp, RNC) Pain Goal: 2 (Jasmyne Camp, RNC) Pain Relief Measures: Comfort Measures (Jasmyne Camp, RNC) Pain Coping: Talking Through Contractions; Declines Medication or Epidural (Jasmyne Camp, RNC) Pitocin (milliunit): Pitocin Remains (milliunits) @ (Annotations: 20) (Jasmyne Camp, RNC) LaborFlag: Labor (QS system process) Datetime: 03/13/2017 11:13 Communication: Report Given to @ Dr Camacho< H Augusto CNM (Jasmyne Camp, RNC) Communication Comments: given verbal report of max dose Pitocin @ 20 units (Jasmyne Camp, RNC) Datetime: 03/13/2017 11:09 Monitor Interventions for UA: [place] Adjusted (Jasmyne Camp, RNC) Monitor Interventions for FHR: Ultrasound Adjusted (Jasmyne Camp, RNC) Patient Position/Activity: Birthing Ball (Jasmyne Camp, RNC) Datetime: 03/13/2017 11:03 I/O Interventions: Up to BR (Jasmyne Camp, RNC) Datetime: 03/13/2017 11:00 Temperature (F): 98.9 (Jasmyne Camp, RNC) Temperature (C): 37.2 (QS system process) Duration Criteria: Less than Two 120 Second Contractions (Jasmyne Camp, RNC) Resting Tone (Palpate): Relaxed (Jasmyne Camp, RNC) Monitor Mode: External US; Auscultation (Jasmyne Camp, RNC) FHR Baseline Rate : 140 (Jasmyne Camp, RNC) FHR Baseline Changes: No Baseline Change (Jasmyne Camp, RNC) Variability: Moderate 6-25 bpm (Jasmyne Camp, RNC) Accelerations: 15X15 (Jasmyne Camp, RNC) Decelerations: None (Jasmyne Camp, RNC) Pitocin (milliunit): Pitocin Increased to (milliunits) @ (Annotations: 20) (Jasmyne Camp, RNC) LaborFlag: Labor (QS system process) Datetime: 03/13/2017 10:45 Monitor Mode: External; Palpation (Jasmyne Camp, RNC) Monitor Interventions for UA: [place] Adjusted (Jasmyne Camp, RNC) Frequency (min): 1-4 (Jasmyne Camp, RNC) Quality: Mild (Jasmyne Camp, RNC) Duration (sec): 60-100 (Jasmyne Camp, RNC) Duration Criteria: Less than Two 120 Second Contractions (Jasmyne Camp, RNC) Pattern: Normal: <= 5 Contractions in 10 Minutes (Jasmyne Camp, RNC) Resting Tone (Palpate): Relaxed (Jasmyne Camp, RNC) Monitor Mode: External US; Auscultation (Jasmyne Camp, RNC) FHR Baseline Rate : 135 (Jasmyne Camp, RNC) FHR Baseline Changes: No Baseline Change (Jasmyne Camp, RNC) Variability: Moderate 6-25 bpm (Jasmyne Camp, RNC) Accelerations: 15X15 (Jasmyne Camp, RNC) Decelerations: None (Jasmyne Camp, RNC) Pitocin (milliunit): Pitocin Increased to (milliunits) @ (Annotations: 18) (Jasmyne Camp, RNC) Datetime: 03/13/2017 10:41 NBP Sys/Marry/Mean (mmHg): 110 (QS system process) : 71 (QS system process) : 85 (QS system process) Pulse: 78 (QS system process) Respirations: 18 (Jasmyne Camp, RNC) LaborFlag: Labor (QS system process) Datetime: 03/13/2017 10:30 Monitor Mode: External; Palpation (Jasmyne Camp, RNC) Monitor Interventions for UA: [place] Adjusted (Jasmyne Camp, RNC) Frequency (min): 2-4 (Jasmyne Camp, RNC) Quality: Mild (Jasmyne Camp, RNC) Duration (sec): 50-100 (Jasmyne Camp, RNC) Duration Criteria: Less than Two 120 Second Contractions (Jasmyne Camp, RNC) Pattern: Normal: <= 5 Contractions in 10 Minutes (Jasmyne Camp, RNC) Resting Tone (Palpate): Relaxed (Jasmyne Camp, RNC) Contraction Comments: couplets noted (Jasmyne Camp, RNC) Monitor Mode: External US; Auscultation (Jasmyne Camp, RNC) FHR Baseline Rate : 140 (Jasmyne Camp, RNC) FHR Baseline Changes: No Baseline Change (Jasmyne Camp, RNC) Variability: Minimal - Undetectable to <=5 bpm (Jasmyne Camp, RNC) Accelerations: None (Jasmyne Camp, RNC) Decelerations: None (Jasmyne Camp, RNC) Pitocin (milliunit): Pitocin Increased to (milliunits) @ (Annotations: 16) (Jasmyne Camp, RNC) Datetime: 03/13/2017 10:24 NBP Sys/Marry/Mean (mmHg): 110 (QS system process) : 64 (QS system process) : 80 (QS system process) Pulse: 86 (QS system process) Respirations: 18 (Jasmyne Camp, RNC) LaborFlag: Labor (QS system process) Datetime: 03/13/2017 10:15 Monitor Mode: External; Palpation (Nerissa Edenilson, RNC) Frequency (min): 2-3 (Nerissa Edenilson, RNC) Quality: Mild/Moderate (Nerissa Edenilson, RNC) Duration (sec): 60-90 (Nerissa Edenilson, RNC) Duration Criteria: Less than Two 120 Second Contractions (Nerissa Edenilson, RNC) Pattern: Normal: <= 5 Contractions in 10 Minutes (Nerissa Edenilson, RNC) Resting Tone (Palpate): Relaxed (Nerissa Edenilson, RNC) Monitor Mode: External US (Nerissa Edenilson, RNC) FHR Baseline Rate : 135 (Nerissa Edenilson, RNC) Variability: Moderate 6-25 bpm (Nerissa Edenilson, RNC) Accelerations: 15X15 (Nerissa Edenilson, RNC) Decelerations: None (Nerissa Edenilson, RNC) Pitocin (milliunit): Pitocin Increased to (milliunits) @ (Annotations: 14) (Jasmyne Camp, RNC) Datetime: 03/13/2017 10:00 Monitor Mode: External; Palpation (Jasmyne Camp, RNC) Frequency (min): 3-4 (Jasmyne Camp, RNC) Quality: Mild (Jasmyne Camp, RNC) Duration (sec): 80-100 (Jasmyne Camp, RNC) Duration Criteria: Less than Two 120 Second Contractions (Jasmyne Camp, RNC) Pattern: Normal: <= 5 Contractions in 10 Minutes (Jasmyne Camp, RNC) Resting Tone (Palpate): Relaxed (Jasmyne Camp, RNC) Monitor Mode: External US; Auscultation (Jasmyne Camp, RNC) FHR Baseline Rate : 140 (Jasmyne Camp, RNC) FHR Baseline Changes: No Baseline Change (Jasmyne Camp, RNC) Variability: Moderate 6-25 bpm (Jasmyne Camp, RNC) Accelerations: 15X15 (Jasmyne Camp, RNC) Decelerations: None (Jasmyne Camp, RNC) Pitocin (milliunit): Pitocin Remains (milliunits) @ (Annotations: 12) (Jasmyne Camp, RNC) Datetime: 03/13/2017 09:58 I/O Interventions: Clear Liquids Given (Jasmyne Camp, RNC) Datetime: 03/13/2017 09:45 Monitor Mode: External; Palpation (Jasmyne Camp, RNC) Frequency (min): 3-5 (Jasmyne Camp, RNC) Quality: Mild/Moderate (Jasmyne Camp, RNC) Duration (sec): 60-70 (Jasmyne Camp, RNC) Duration Criteria: Less than Two 120 Second Contractions (Jasmyne Camp, RNC) Pattern: Normal: <= 5 Contractions in 10 Minutes (Jasmyne Camp, RNC) Resting Tone (Palpate): Relaxed (Jasmyne Camp, RNC) Monitor Mode: External US; Auscultation (Jasmyne Camp, RNC) FHR Baseline Rate : 140 (Jasmyne Camp, RNC) FHR Baseline Changes: No Baseline Change (Jasmyne Camp, RNC) Variability: Moderate 6-25 bpm (Jasmyne Camp, RNC) Accelerations: 15X15 (Jasmyne Camp, RNC) Decelerations: None (Jasmyne Camp, RNC) Pitocin (milliunit): Pitocin Increased to (milliunits) @ (Annotations: 12) (Jasmyne Camp, RNC) I/O Interventions: Popsicle (Jasmyne Camp, RNC) Patient Care Comments: repositioned to rocking chair, toco and u/s adjusted (Jasmyne Camp, RNC) Datetime: 03/13/2017 09:40 Hygiene: Maribell Care; Underpad Changed (Jasmyne Camp, RNC) I/O Interventions: Up to BR (Jasmyne Camp, RNC) Datetime: 03/13/2017 09:30 Monitor Mode: External; Palpation (Jasmyne Camp, RNC) Frequency (min): 4-5 (Jasmyne Camp, RNC) Quality: Mild (Jasmyne Camp, RNC) Duration (sec): 60-70 (Jasmyne Camp, RNC) Duration Criteria: Less than Two 120 Second Contractions (Jasmyne Camp, RNC) Pattern: Normal: <= 5 Contractions in 10 Minutes (Jasmyne Camp, RNC) Resting Tone (Palpate): Relaxed (Jasmyne Camp, RNC) Monitor Mode: External US; Auscultation (Jasmyne Camp, RNC) FHR Baseline Rate : 135 (Jasmyne Camp, RNC) FHR Baseline Changes: No Baseline Change (Jasmyne Camp, RNC) Variability: Moderate 6-25 bpm (Jasmyne Camp, RNC) Accelerations: 15X15 (Jasmyne Camp, RNC) Decelerations: None (Jasmyne Camp, RNC) Pitocin (milliunit): Pitocin Increased to (milliunits) @ (Annotations: 10) (Jasmyne Camp, RNC) Datetime: 03/13/2017 09:15 Monitor Mode: External; Palpation (Jasmyne Camp, RNC) Monitor Interventions for UA: [place] Adjusted (Jasmyne Camp, RNC) Frequency (min): 2-5 (Jasmyne Camp, RNC) Quality: Mild (Jasmyne Camp, RNC) Duration (sec): 50-80 (Jasmyne Camp, RNC) Duration Criteria: Less than Two 120 Second Contractions (Jasmyne Camp, RNC) Pattern: Normal: <= 5 Contractions in 10 Minutes (Jasmyne Camp, RNC) Resting Tone (Palpate): Relaxed (Jasmyne Camp, RNC) Contraction Comments: RN at bedside adjusting monitors (Jasmyne Camp, RNC) Monitor Mode: External US; Auscultation (Jasmyne Camp, RNC) FHR Baseline Rate : 140 (Jasmyne Camp, RNC) FHR Baseline Changes: No Baseline Change (Jasmyne Camp, RNC) Variability: Moderate 6-25 bpm (Jasmyne Camp, RNC) Accelerations: 15X15 (Jasmyne Camp, RNC) Decelerations: None (Jasmyne Camp, RNC) Pain Scale: 0 (Jasmyne Camp, RNC) Pain Presence: None/Denies (Jasmyne Camp, RNC) Pain Type: N/A (Jasmyne Camp, RNC) Pain Assessment Comments: unaware of contractions (Jasmyne Camp, RNC) Pitocin (milliunit): Pitocin Increased to (milliunits) @ (Annotations: 8) (Jasmyne Camp, RNC) LaborFlag: Labor (QS system process) Datetime: 03/13/2017 09:11 NBP Sys/Marry/Mean (mmHg): 98 (QS system process) : 57 (QS system process) : 74 (QS system process) Pulse: 80 (QS system process) Respirations: 20 (Jasmyne Camp, RNC) LaborFlag: Labor (QS system process) Datetime: 03/13/2017 09:00 Monitor Mode: External; Palpation (Jasmyne Camp, RNC) Frequency (min): 5-7 (Jasmyne Camp, RNC) Quality: Mild (Jasmyne Camp, RNC) Duration (sec): 60-70 (Jasmyne Camp, RNC) Duration Criteria: Less than Two 120 Second Contractions (Jasmyne Camp, RNC) Pattern: Normal: <= 5 Contractions in 10 Minutes (Jasmyne Camp, RNC) Resting Tone (Palpate): Relaxed (Jasmyne Camp, RNC) Monitor Mode: External US; Auscultation (Jasmyne Camp, RNC) FHR Baseline Rate : 140 (Jasmyne Camp, RNC) FHR Baseline Changes: No Baseline Change (Jasmyne Camp, RNC) Variability: Moderate 6-25 bpm (Jasmyne Camp, RNC) Accelerations: 15X15 (Jasmyne Camp, RNC) Decelerations: None (Jasmyne Camp, RNC) Pitocin (milliunit): Pitocin Increased to (milliunits) @ 6 (Jasmyne Camp, RNC) Datetime: 03/13/2017 08:50 Patient Position/Activity: Left Lateral (Jasmyne Camp, RNC) Datetime: 03/13/2017 08:45 Monitor Mode: External; Palpation (Jasmyne Camp, RNC) Frequency (min): 5-7 (Jasmyne Camp, RNC) Quality: Mild (Jasmyne Camp, RNC) Duration (sec): 60-70 (Jasmyne Camp, RNC) Duration Criteria: Less than Two 120 Second Contractions (Jasmyne Camp, RNC) Pattern: Normal: <= 5 Contractions in 10 Minutes (Jasmyne Camp, RNC) Resting Tone (Palpate): Relaxed (Jasmyne Camp, RNC) Monitor Mode: External US; Auscultation (Jasmyne Camp, RNC) FHR Baseline Rate : 140 (Jasmyne Camp, RNC) FHR Baseline Changes: No Baseline Change (Jasmyne Camp, RNC) Variability: Moderate 6-25 bpm (Jasmyne Camp, RNC) Accelerations: 15X15 (Jasmyne Camp, RNC) Decelerations: None (Jasmyne Camp, RNC) Pitocin (milliunit): Pitocin Remains (milliunits) @ 4 (Jasmyne Camp, RNC) Datetime: 03/13/2017 08:39 I/O Interventions: Up to BR (Jasmyne Camp, RNC) Datetime: 03/13/2017 08:30 Monitor Mode: External; Palpation (Jasmyne Camp, RNC) Frequency (min): 5-8 (Jasmyne Camp, RNC) Quality: Mild (Jasmyne Camp, RNC) Duration (sec): 60-80 (Jasmyne Camp, RNC) Duration Criteria: Less than Two 120 Second Contractions (Jasmyne Camp, RNC) Pattern: Normal: <= 5 Contractions in 10 Minutes (Jasmyne Camp, RNC) Resting Tone (Palpate): Relaxed (Jasmyne Camp, RNC) Monitor Mode: External US; Auscultation (Jasmyne Camp, RNC) FHR Baseline Rate : 140 (Jasmyne Camp, RNC) FHR Baseline Changes: No Baseline Change (Jasmyne Camp, RNC) Variability: Moderate 6-25 bpm (Jasmyne [place], [facility]) Accelerations: 15X15 ([place], R[facility]) Decelerations: None ([place], R[facility]) Pitocin (milliunit): Pitocin Increased to (milliunits) @ 4 ([place], [facility]) IV/Blood Work: IV Infusing per Order ([place], [facility]) IV/Blood Work: IV Bolus Given ml @ 300 ([place], [facility]) Patient Care Comments: rate decreased to 125ml/hr ([place], R[facility]) Datetime: 03/13/2017 08:15 Monitor Mode: External; Palpation ([place], [facility]) Frequency (min): irregular ([place], [facility]) Quality: Mild ([place], R[facility]) Duration (sec): 60-110 ([place], R[facility]) Duration Criteria: Less than Two 120 Second Contractions ([place], R[facility]) Pattern: Normal: <= 5 Contractions in 10 Minutes (Jasmyne Camp, RNC) Resting Tone (Palpate): Relaxed (Jasmyne Camp, RNC) Monitor Mode: External US; Auscultation (Jasmyne Camp, RNC) FHR Baseline Rate : 145 (Jasmyne Camp, RNC) FHR Baseline Changes: No Baseline Change (Jasmyne Camp, RNC) Variability: Moderate 6-25 bpm (Jasmyne Camp, RNC) Accelerations: Prolonged (Jasmyne Camp, RNC) Decelerations: None (Jasmyne Camp, RNC) Pitocin (milliunit): Pitocin Started (milliunits) @ 2 (Jasmyne Camp, RNC) Instructional Method: Verbal; Patient Instructed; Family/Support Person Instructed; Verbalized Understanding (Jasmyne Camp, RNC) Medications: Pitocin (Jasmyne Camp, RNC) Datetime: 03/13/2017 08:11 NBP Sys/Marry/Mean (mmHg): 93 (QS system process) : 61 (QS system process) : 72 (QS system process) Pulse: 88 (QS system process) Respirations: 20 (Jasmyne Camp, RNC) LaborFlag: Labor (QS system process) Datetime: 03/13/2017 08:09 Dilatation (cm): 2.5 (Jasmyen [place], RNC) Effacement (%): 80 (Jasmyne [place], RNC) Station: -1 ([facility], [facility]) Exam by: Yordy S (Jasmyne [place], [facility]) Vaginal Bleeding: Small (Jasmyne [place], RN) Cervix, Consistency: Soft (Jasmyne [place], RN) Cervix, Position: Midposition (Jasmyne [place], RNC) Lie 'A': Unable to Assess (Jasmyne [place], [facility]) Unit Routine: Consents Signed ([facility], [facility]) Datetime: 03/13/2017 08:00 Monitor Mode: External; Palpation (Jasmyne [place], RNC) Frequency (min): irregular (Jasmyne Camp, RNC) Quality: Mild (Jasmyne Camp, RNC) Duration (sec): 60-110 (Jasmyne Camp, RNC) Duration Criteria: Less than Two 120 Second Contractions (Jasmyne Camp, RNC) Pattern: Normal: <= 5 Contractions in 10 Minutes (Jasmyne Camp, RNC) Resting Tone (Palpate): Relaxed (Jasmyne Camp, RNC) Monitor Mode: External US; Auscultation (Jasmyne Camp, RNC) FHR Baseline Rate : 145 (Jasmyne Camp, RNC) FHR Baseline Changes: No Baseline Change (Jasmyne Camp, RNC) Variability: Moderate 6-25 bpm (Jasmyne Camp, RNC) Accelerations: Prolonged (Jasmyne Camp, RNC) Decelerations: None (Jasmyne Camp, RNC) Datetime: 03/13/2017 07:59 IV/Blood Work: IV Started; IV Bolus Started (Jasmyne Camp, RNC) Patient Care Comments: 18 g jelco placed in left forearm lr 1000ml bag up and bolusing via gravity for 300 ml (Jasmyne Camp, RNC) Datetime: 03/13/2017 07:45 Monitor Mode: External; Palpation ([facility], [facility]) Frequency (min): irregular ([facility], [facility]) Quality: Mild ([facility], [facility]) Duration (sec): 70-90 ([facility], [facility]) Pattern: Normal: <= 5 Contractions in 10 Minutes ([facility], [facility]) Resting Tone (Palpate): Relaxed ([facility], [facility]) Monitor Mode: External US; Auscultation ([facility], [facility]) FHR Baseline Rate : 145 ([facility], [facility]) FHR Baseline Changes: No Baseline Change ([facility], [facility]) Variability: Moderate 6-25 bpm ([facility], [facility]) Accelerations: 15X15 ([facility], [facility]) Decelerations: None ([facility], [facility]) Pain Scale: 0 ([facility], [facility]) Pain Presence: None/Denies ([facility], [facility]) Pain Type: N/A ([facility], [facility]) Pain Assessment Comments: denies pain on admission ([place]) Dilatation (cm): 2.5 ([facility], [facility]) Effacement (%): 80 ([facility], [facility]) Station: -1 ([place]) Exam by: Demian Scales ([place]) Membrane Status: Intact ([place]) Vaginal Bleeding: Scant (Annotations: c/o intermittent episodes of dark brown streak on tissue after membranes stripped yesterday at office) ([place]) Dilatation (cm): 1-2 cm ([place]) Effacement: >80_ effaced ([place]) Station: minus 1 to 0 ([place]) Consistency: Soft ([place]) Position: Midposition ([place]) Total Kwok's Score: 9 (QS system process) : 9-14 = Usually no failure for induction (QS system process) Level of Consciousness: Fully Conscious ([facility], [facility]) DTR's/Clonus: DTRs 2+; No Clonus ([place]) Headache: Denies ([place]) Breath Sounds, Left: Clear and Equal (Jasmyne Camp, RNC) Breath Sounds, Right: Clear and Equal (Jasmyne Camp, RNC) Nausea/Vomiting: Denies (Jasmyne Camp, RNC) RUQ Epigastric Pain: Denies (Jasmyne Camp, RNC) LaborFlag: Labor (QS system process) Datetime: 03/13/2017 07:42 Respirations: 20 (Jasmyne Camp, RNC) Temperature (C): 37.2 (QS system process) LaborFlag: Labor (QS system process) Datetime: 03/13/2017 07:40 Patient Position/Activity: HOB Lowered; Right Lateral (Jasmyne Camp, RNC) Datetime: 03/13/2017 07:37 Instructional Method: Demo; Verbal; Written; Patient Instructed; Family/Support Person Instructed; Verbalized Understanding (Jasmyne Camp, RNC) Plan of Care: Plan of Care Discussed; Induction (Jasmyne Camp, RNC) Unit Routine: [place] to Room; Call [place]; Bed; Visiting Policy; Phone/Cell Phone Use; Photography (Jasmyne Camp, RNC) Labor/Induction: Induction (Jasmyne Camp, RNC) Pain Management: Pain Scale/Goals (Jasmyne Camp, RNC) Datetime: 03/13/2017 06:00 Stage of : Labor (Jasmyne Camp, RNC) Datetime: 11/15/2016 23:50 LaborFlag: Antepartum (QS system process) Datetime: 11/15/2016 23:24 LaborFlag: Antepartum (QS system process) Datetime: 11/15/2016 23:22 LaborFlag: Antepartum (QS system process) Datetime: 11/15/2016 22:57 Membranes Ruptured Date/Time: 03/13/2017 12:27 (Jasmyne Camp, RNC)
[2017-03-13] MEDS: IBUPROFEN 800 MG TABLET PO SCH (20:13)
[2017-03-13] MEDS ORDERED: IBUPROFEN 800 MG TABLET ONE (20:13)
--- NOTE | 2017-03-13 22:37 | Delivery Summary ---
Del Sum A-C Datetime Report Generated by CPN: 03/13/2017 22:37 DELIVERY PERSONNEL DELIVERY PERSONNEL: [phone] Delivery Doctor:: Alicia Casas CNM Nurse Dance Entertainer Certified:: Alicia Casas CNM Labor and Delivery Nurse:: RODNEY Hair Labor and Delivery Nurse:: RODNEY Gonzalez/AQUATIC DIRECTOR: Christina Hill, FELT PULLER MATERNAL INFORMATION Delivery Anesthesia: Epidural Medications After Delivery: Pitocin Bolus-Please Comment Meds After Delivery Comment: pitocin 20 units in 1000 ml nss Estimated Blood Loss (ml): 350 Provider Comments: of viabe female , head, shoulders, and body delivered without difficulty, infant with spontaneous cry and respirations, to maternal abdomen, cord clamped X2, cut free by pts . Delivery of placenta via Gerardo, appears intact, 3VC. Hemostasis acheived with external fundal massage and IV pitocin, repair as above, mother and infant in stable condition, routine pp care. LABOR SUMMARY EDC: 03/13/2017 00:00 No. Babies in Womb: 1 Attempted: No Labor Anesthesia: Epidural LABOR INFORMATION Reason for Induction: Maternal Diabetes Onset of Labor: 03/13/2017 12:27 Complete Dilatation: 03/13/2017 17:23 Oxytocin: Induction Group B Beta Strep: negative Steroids Given: None Reason Steroids Not Administered: Not Applicable MEMBRANES Membranes Rupture Method: Artificial Rupture of Membranes: 03/13/2017 12:27 Length of Rupture (hr): 5.45 Amniotic Fluid Color: Clear Amniotic Fluid Amount: Small Amniotic Fluid Odor: Normal STAGES OF LABOR Stage 1 hr: 4 Stage 1 min: 56 Stage 2 hr: 0 Stage 2 min: 31 Stage 3 hr: 0 Stage 3 min: 3 Total Time in Labor hr: 5 Total Time in Labor min: 30 VAGINAL DELIVERY Episiotomy: None Laceration Extension: Second Degree Laceration Type: Perineal; Vaginal Laceration Repair Note: Repaired with 2-0 chromic in usual fashion using epidural for anesthesia Sponge Count Correct: Yes Sharps Count Correct: Yes CSECTION DELIVERY Primary Indication: N/A Secondary Indication: N/A CSection Incidence: N/A Labor: N/A Elective: N/A CSection Incision: N/A BABY A INFORMATION Infant Delivery Date/Time: 03/13/2017 17:54 Method of Delivery: Vaginal Born in Route : No : N/A Forceps: N/A Vacuum Extraction: N/A Shoulder Dystocia : No PRESENTATION/POSITION BABY A Presentation: Cephalic Cephalic Presentation: Vertex Vertex Position: Left Occipital Anterior Breech Presentation: N/A PLACENTA INFORMATION BABY A Placenta Delivery Time : 03/13/2017 17:57 Placenta Method of Delivery: Manual Removal Placenta Status: Delivered SCORES BABY A Heart Rate 1 min: >100 bpm Resp Effort 1 min: Good Cry Reflex Irritability 1 min: Cough or Sneeze or Pulls Away Muscle Tone 1 min: Active Motion Color 1 min: Body [place], Extremities Blue Resuscitation Effort 1 min: Tactile Stimulation SCORE 1 MIN: 9 Heart Rate 5 min: >100 bpm Resp Effort 5 min: Good Cry Reflex Irritability 5 min: Cough or Sneeze or Pulls Away Muscle Tone 5 min: Active Motion Color 5 min: Completely [place] Resuscitation Effort 5 min: N/A SCORE 5 MIN: 10 Resuscitation Effort 10 min: N/A INFANT INFORMATION BABY A Gestational Age at Delivery: 40.0 Gestational Status: Full Term- 39- 40.6 Weeks Outcome : Liveborn Infant Condition : Stable Sex: Female IDENTIFICATION BABY A Verification Date/Time: 03/13/2017 18:15 ID Band Number: [id number] Mother's Name Verified: Yes Infant RN Verifying : Jasmyne Camp RNC WEIGHT/LENGTH BABY A Birthweight (gm): 3980 Infant Weight (lb): 8 Weight (oz): 12 Infant Length (in): 21.00 Length (cm): 53.34 CORD INFORMATION BABY A No. Cord Vessels: 3 Nuchal Cord : N/A Cord Blood Taken: Yes-For Storage (Mom's Blood type +) Infant Suction: Mouth ASSESSMENT BABY A Infant Complications: None Physical Findings at Delivery: Within Normal Limits Respirations: Appears Normal Skin to Skin: Yes Skin to Skin Time (min): 45 Litigation Examiner/ALS Called : No Care By: D Bellavance RNC Transferred To: Remains with Mother BABY B INFORMATION : N/A SIGNATURES Assignment: Margo Camacho MD Signature: with User ID: Maeve : with User ID: Maeve
[2017-03-14] MEDS ORDERED: IBUPROFEN 800 MG TABLET ONE (06:01)
[2017-03-14] MEDS: IBUPROFEN 800 MG TABLET PO SCH ×3 (06:03→21:41)
[2017-03-14 07:53] LABS: HEMATOCRIT 29.3 % (36.0-47.0); HGB HCT DIFFERENCE 0.7; MEAN CORPUSCULAR HEMOGLOBIN 31.9 pg (27.0-33.4); MEAN CORPUSCULAR HGB CONC 34.3 g/dL (32.0-36.0); MEAN CORPUSCULAR VOLUME 93 fl (80-97); RED BLOOD COUNT 3.15 10^6/uL (3.72-5.28); RED CELL DISTRIBUTION WIDTH 13.1 % (11.5-14.0); WHITE BLOOD COUNT 13.8 10^3/uL (4.0-10.5)
--- NOTE | 2017-03-14 09:48 | PDOC PROGRESS REPORT ---
Subjective-OB Subjective: Post Delivery Day: 1 23 year old. Denies any needs at this time, states lochia is stable, voiding without difficulty, has been up to the bathroom and ambulated without difficulty. Pain is moderately well controlled. Physical Exam (OB) Vital Signs: Intake & Output 03/13/17 03/14/17 03/15/17 06:59 06:59 06:59 Weight 84.45 kg - Episiotomy/Laceration Site Condition: Well Approximated - Lochia Lochia Amount: Small 10-25 ml Lochia Color: Rubra/Red - Abdomen Description: Soft, Round Hernia Present: No Fundal Description: Firm Fundal Height: u/u - u/2 Objective-Diagnostic Laboratory: 03/14/17 07:32 03/14/17 07:32 WBC 13.8 H RBC 3.15 L Hgb 10.0 L Hct 29.3 L MCV 93 MCH 31.9 MCHC 34.3 RDW 13.1 Plt Count 187 Assessment and Plan(PN) - Assessment and Plan (1) Vaginal delivery Is this a current diagnosis for this admission?: YesPlan: routine pp care (2) GDM, class A1 Is this a current diagnosis for this admission?: YesPlan: pp screening for dm - Time Spent with Patient Time with patient: Less than 15 minutes Critical Time spent with patient: Less than 15 minutes Medications reviewed and adjusted accordingly: Yes - Disposition Anticipated Discharge: Home Within: within 24 hours
[2017-03-14] MEDS: FERROUS SULFATE 325 MG TABLET PO SCH ×3 (10:38→17:56)
[2017-03-14] MEDS: FAMOTIDINE 20 MG TABLET PO SCH ×3 (10:38→21:41)
[2017-03-14] MEDS: DOCUSATE SODIUM 100 MG CAPSULE PO SCH ×3 (10:38→17:57)
[2017-03-14] MEDS: PRENATAL VITAMIN W-O CA NO5/FE FUMARATE/FA CAPSULE PO SCH (10:38)
[2017-03-14] MEDS: SENNOSIDES/DOCUSATE 8.6-50 MG 1 EACH TABLET PO SCH (10:39)
--- NOTE | 2017-03-14 10:46 | L&D Admission Assessment ---
LD ADM ASMT Datetime Report Generated by CPN: 03/14/2017 10:45 PATIENT ASSESSMENT Assessment Type: Admission Assessment (03/13/2017 07:45:Jasmyne Bayard, RNC) WEIGHT Weight (lb): 185 (03/14/2017 10:01:QS system process) Weight (lb): 185 (03/14/2017 09:14:QS system process) Weight (lb): 185 (03/13/2017 10:03:QS system process) Weight (lb): 185 (03/13/2017 07:21:QS system process) Weight (kg): 84.1 (03/14/2017 10:01:QS system process) Weight (kg): 84.1 (03/14/2017 09:14:QS system process) Weight (kg): 84.1 (03/13/2017 10:03:QS system process) Weight (kg): 84.1 (03/13/2017 07:21:QS system process) Total Wt Gain (lb): 37 (03/14/2017 10:01:QS system process) Total Wt Gain (lb): 37 (03/14/2017 09:14:QS system process) Total Wt Gain (lb): 37 (03/13/2017 10:03:QS system process) Total Wt Gain (lb): 37 (03/13/2017 07:21:QS system process) Wt Gain (kg): 16.7 (03/14/2017 10:01:QS system process) Wt Gain (kg): 16.7 (03/14/2017 09:14:QS system process) Wt Gain (kg): 16.7 (03/13/2017 10:03:QS system process) Wt Gain (kg): 16.7 (03/13/2017 07:21:QS system process) BMI: 29.0 (03/14/2017 10:01:QS system process) BMI: 29.0 (03/14/2017 09:14:QS system process) BMI: 29.0 (03/13/2017 10:03:QS system process) BMI: 29.9 (03/13/2017 07:21:QS system process) PAIN Pain Scale: 1 (03/14/2017 08:50:Jasmyne Camp, RNC) Pain Scale: 1 (03/14/2017 07:20:Jasmyne Camp, RNC) Pain Scale: 1 (03/14/2017 06:00:Dyan Danielson, RN) Pain Scale: 2 (03/13/2017 20:05:Dyan Danielson, RN) Pain Scale: 1 (03/13/2017 19:10:Jasmyne Camp, RNC) Pain Scale: 2 (03/13/2017 19:04:Jasmyne Camp, RNC) Pain Scale: 2 (03/13/2017 18:35:Jasmyne Camp, RNC) Pain Scale: 0 (03/13/2017 18:04:Jasmyne Camp, RNC) Pain Scale: 0 (03/13/2017 15:00:Jasmyne Camp, RNC) Pain Scale: 4 (03/13/2017 13:43:Jasmyne Camp, RNC) Pain Scale: 3 (03/13/2017 13:00:Jasmyne Camp, RNC) Pain Scale: 2 (03/13/2017 11:15:Jasmyne Camp, RNC) Pain Scale: 0 (03/13/2017 09:15:Jasmyne Camp, RNC) Pain Scale: 0 (03/13/2017 07:45:Jasmyne Camp, RNC) Pain Presence: Intermittent (03/14/2017 08:50:Jasmyne Camp, RNC) Pain Presence: Intermittent (03/14/2017 07:20:Jasmyne Camp, RNC) Pain Presence: Intermittent (03/13/2017 20:05:Dyan Danielson, RN) Pain Presence: Intermittent (03/13/2017 19:10:Jasmyne Camp, RNC) Pain Presence: Intermittent (03/13/2017 19:04:Jasmyne Camp, RNC) Pain Presence: Intermittent (03/13/2017 18:35:Jasmyne Camp, RNC) Pain Presence: None/Denies (03/13/2017 18:04:Jasmyne Camp, RNC) Pain Presence: None/Denies (03/13/2017 15:00:Jasmyne Camp, RNC) Pain Presence: Intermittent (03/13/2017 13:43:Jasmyne Camp, RNC) Pain Presence: Intermittent (03/13/2017 13:00:Jasmyne Camp, RNC) Pain Presence: Intermittent (03/13/2017 11:15:Jasmyne Camp, RNC) Pain Presence: None/Denies (03/13/2017 09:15:Jasmyne Camp, RNC) Pain Presence: None/Denies (03/13/2017 07:45:Jasmyne Camp, RNC) Pain Type: Cramping (03/14/2017 08:50:Jasmyne Camp, RNC) Pain Type: Cramping (03/14/2017 07:20:Jasmyne Camp, RNC) Pain Type: Cramping (03/13/2017 20:05:Dyan Danielson RN) Pain Type: Cramping (03/13/2017 19:10:Jasmyne Scales, RNC) Pain Type: Cramping (03/13/2017 19:04:Jasmyne Camp, RNC) Pain Type: Cramping (03/13/2017 18:35:Jasmyne Scales, RNC) Pain Type: N/A (03/13/2017 18:04:Jasmyne Camp, RNC) Pain Type: N/A (03/13/2017 15:00:Jasmyne Camp, RNC) Pain Type: Contraction (03/13/2017 13:43:Jasmyne Camp, RNC) Pain Type: Contraction (03/13/2017 13:00:Jasmyne Scales, RNC) Pain Type: Contraction (03/13/2017 11:15:Jasmyne Camp, RNC) Pain Type: N/A (03/13/2017 09:15:Jasmyne Camp, RNC) Pain Type: N/A (03/13/2017 07:45:Jasmyne Camp, RNC) Pain Location: Abdomen (03/14/2017 08:50:Jasmyne Camp, RNC) Pain Location: Abdomen (03/14/2017 07:20:Jasmyne Camp, RNC) Pain Location: Abdomen (03/13/2017 20:05:Dyan Danielson RN) Pain Location: Abdomen (03/13/2017 19:10:Jasmyne Camp, RNC) Pain Location: Abdomen (03/13/2017 19:04:Jasmyne Camp, RNC) Pain Location: Abdomen (03/13/2017 18:35:Jasmyne Camp, RNC) Pain Location: Back (03/13/2017 13:43:RODNEY Hair) Pain Location: Back (03/13/2017 13:00:RODNEY Hair) Pain Location: Abdomen (03/13/2017 11:15:RODNEY Hair) Pain Goal: 2 (03/13/2017 13:43:RODNEY Hair) Pain Goal: 2 (03/13/2017 11:15:RODNEY Hair) Pain Related to Contraction: No (03/13/2017 07:45:RODNEY Hair) Pain Comments: resting comfortably with no complaints (03/14/2017 07:20:RODNEY Hair) Pain Comments: Pt states perineum is very sore. When asked if she wanted stronger pain med, she declined. (03/14/2017 04:17:Dyan Danielson RN) Pain Comments: states she is "sore" (03/13/2017 19:30:Dyan Danielson RN) Pain Comments: no apparent distress noted (03/13/2017 19:04:RODNEY Hair) Pain Comments: no apparent distress noted (03/13/2017 18:04:RODNEY Hair) Pain Comments: requests epidural placement for pain (03/13/2017 13:43:RODNEY Hair) Pain Comments: c/o increasing back pain, repositioned to hands and kness with application of heat and counter pressure by (03/13/2017 13:00:RODNEY Hair) Pain Comments: unaware of contractions (03/13/2017 09:15:RODNEY Hair) Pain Comments: denies pain on admission (03/13/2017 07:45:RODNEY Hair) CONTRACTIONS Frequency (min): 1.5-3 (03/13/2017 17:45:Jasmyne Camp, RNC) Frequency (min): 1.5-2 (03/13/2017 17:30:Jasmyne Camp, RNC) Frequency (min): 1-3 (03/13/2017 17:15:Jasmyne Camp, RNC) Frequency (min): 1-3 (03/13/2017 17:00:Jasmyne Camp, RNC) Frequency (min): 1-3 (03/13/2017 16:45:Jasmyne Camp, RNC) Frequency (min): 1-3 (03/13/2017 16:30:Jasmyne Camp, RNC) Frequency (min): 1-2 (03/13/2017 16:15:Jasmyne Camp, RNC) Frequency (min): 1-2 (03/13/2017 16:00:Jasmyne Camp, RNC) Frequency (min): 1-3 (03/13/2017 15:45:Jasmyne Camp, RNC) Frequency (min): 1-3 (03/13/2017 15:30:Jasmyne Camp, RNC) Frequency (min): 1.5-3 (03/13/2017 15:15:Jasmyne Camp, RNC) Frequency (min): 1.5-2 (03/13/2017 15:00:Jasmyne Camp, RNC) Frequency (min): 1.5-2 (03/13/2017 14:45:Jasmyne Camp, RNC) Frequency (min): 1-3 (03/13/2017 14:30:Jasmyne Camp, RNC) Frequency (min): 1-3 (03/13/2017 14:15:Jasmyne Camp, RNC) Frequency (min): 1-3 (03/13/2017 14:00:Jasmyne Camp, RNC) Frequency (min): 1.5-3 (03/13/2017 13:45:Jasmyne Camp, RNC) Frequency (min): 2.5-3 (03/13/2017 13:30:Nerissa Pyle, RNC) Frequency (min): 2.5-4 (03/13/2017 13:15:Nerissa Pyle RNC) Frequency (min): 1-3 (03/13/2017 13:00:Jasmyne Camp, RNC) Frequency (min): 1-4 (03/13/2017 12:45:Jasmyne Camp, RNC) Frequency (min): 2-3 (03/13/2017 12:30:Nerissa Edenilson, RNC) Frequency (min): 2-3 (03/13/2017 12:15:Nerissa Edenilson, RNC) Frequency (min): 1-3 (03/13/2017 12:02:Jasmyne Camp, RNC) Frequency (min): 2-3 (03/13/2017 12:00:Nerissa Edenilson, RNC) Frequency (min): 2-3.5 (03/13/2017 11:45:Nerissa Edenilson, RNC) Frequency (min): 2-2.5 (03/13/2017 11:30:Nerissa Edenilson, RNC) Frequency (min): 2.5-3 (03/13/2017 11:15:Nerissa Edenilson, RNC) Frequency (min): 1-4 (03/13/2017 10:45:Jasmyne Camp, RNC) Frequency (min): 2-4 (03/13/2017 10:30:Jasmyne Camp, RNC) Frequency (min): 2-3 (03/13/2017 10:15:Nerissa Edenilson, RNC) Frequency (min): 3-4 (03/13/2017 10:00:Jasmyne Camp, RNC) Frequency (min): 3-5 (03/13/2017 09:45:Jasmyne Camp, RNC) Frequency (min): 4-5 (03/13/2017 09:30:Jasmyne Camp, RNC) Frequency (min): 2-5 (03/13/2017 09:15:Jasmyne Camp, RNC) Frequency (min): 5-7 (03/13/2017 09:00:Jasmyne Camp, RNC) Frequency (min): 5-7 (03/13/2017 08:45:Jasmyne Camp, RNC) Frequency (min): 5-8 (03/13/2017 08:30:Jasmyne Camp, RNC) Frequency (min): irregular (03/13/2017 08:15:Jasmyne Camp, RNC) Frequency (min): irregular (03/13/2017 08:00:Jasmyne Camp, RNC) Frequency (min): irregular (03/13/2017 07:45:Jasmyne Camp, RNC) Duration (sec): 60-100 (03/13/2017 17:45:Jasmyne Camp, RNC) Duration (sec): 70-100 (03/13/2017 17:30:Jasmyne Camp, RNC) Duration (sec): 60-90 (03/13/2017 17:15:Jasmyne Camp, RNC) Duration (sec): 60-100 (03/13/2017 17:00:Jasmyne Camp, RNC) Duration (sec): 60-90 (03/13/2017 16:45:Jasmyne Camp, RNC) Duration (sec): 60-90 (03/13/2017 16:30:Jasmyne Camp, RNC) Duration (sec): 70-100 (03/13/2017 16:15:Jasmyne Camp, RNC) Duration (sec): 70-100 (03/13/2017 16:00:Jasmyne Camp, RNC) Duration (sec): 60-80 (03/13/2017 15:45:Jasmyne Camp, RNC) Duration (sec): 70-100 (03/13/2017 15:30:Jasmyne Camp, RNC) Duration (sec): 50-90 (03/13/2017 15:15:Jasmyne Camp, RNC) Duration (sec): 70-90 (03/13/2017 15:00:Jasmyne Camp, RNC) Duration (sec): 70-80 (03/13/2017 14:45:Jasmyne Camp, RNC) Duration (sec): 60-80 (03/13/2017 14:30:Jasmyne Camp, RNC) Duration (sec): 60-80 (03/13/2017 14:15:Jasmyne Camp, RNC) Duration (sec): 60-80 (03/13/2017 14:00:Jasmyne Camp, RNC) Duration (sec): 50-80 (03/13/2017 13:45:Jasmyne Camp, RNC) Duration (sec): 60-90 (03/13/2017 13:30:Nerissa Pyle RNC) Duration (sec): 60-90 (03/13/2017 13:15:Nerissa Pyle RNC) Duration (sec): 60-100 (03/13/2017 13:00:Jasmyne Yordy, RNC) Duration (sec): 50-80 (03/13/2017 12:45:Jasmyne Camp, RNC) Duration (sec): 60-90 (03/13/2017 12:30:Nerissa yPle RNC) Duration (sec): 60-90 (03/13/2017 12:15:Nerissa Pyle RNC) Duration (sec): 60-90 (03/13/2017 12:02:Jasmyne Scales, RNC) Duration (sec): 60-90 (03/13/2017 12:00:Nerissa Pyle RNC) Duration (sec): 60-90 (03/13/2017 11:45:Nerissa Pyle RNC) Duration (sec): 60-90 (03/13/2017 11:30:Nerissa Pyle RNC) Duration (sec): 60-90 (03/13/2017 11:15:Nerissa Pyle RNC) Duration (sec): 60-100 (03/13/2017 10:45:Jasmyne Camp, RNC) Duration (sec): 50-100 (03/13/2017 10:30:Jasmyne Camp, RNC) Duration (sec): 60-90 (03/13/2017 10:15:Nerissa Pyle RNC) Duration (sec): 80-100 (03/13/2017 10:00:Jasmyne Camp, RNC) Duration (sec): 60-70 (03/13/2017 09:45:Jasmyne Camp, RNC) Duration (sec): 60-70 (03/13/2017 09:30:Jasmyne Camp, RNC) Duration (sec): 50-80 (03/13/2017 09:15:Jasmyne Camp, RNC) Duration (sec): 60-70 (03/13/2017 09:00:Jasmyne Camp, RNC) Duration (sec): 60-70 (03/13/2017 08:45:Jasmyne Camp, RNC) Duration (sec): 60-80 (03/13/2017 08:30:Jasmyne Camp, RNC) Duration (sec): 60-110 (03/13/2017 08:15:Jasmyne Camp, RNC) Duration (sec): 60-110 (03/13/2017 08:00:Jasmyne Camp, RNC) Duration (sec): 70-90 (03/13/2017 07:45:Jasmyne Camp, RNC) Quality: Moderate to Strong (03/13/2017 17:45:Jasmyne Camp, RNC) Quality: Strong (03/13/2017 17:30:Jasmyne Camp, RNC) Quality: Moderate to Strong (03/13/2017 17:15:Jasmyne Camp, RNC) Quality: Moderate to Strong (03/13/2017 17:00:Jasmyne Camp, RNC) Quality: Moderate to Strong (03/13/2017 16:45:Jasmyne Camp, RNC) Quality: Moderate to Strong (03/13/2017 16:30:Jasmyne Camp, RNC) Quality: Moderate to Strong (03/13/2017 16:15:Jasmyne Camp, RNC) Quality: Moderate to Strong (03/13/2017 16:00:Jasmyne Camp, RNC) Quality: Moderate to Strong (03/13/2017 15:45:Jasmyne Camp, RNC) Quality: Moderate to Strong (03/13/2017 15:30:Jasmyne Camp, RNC) Quality: Moderate to Strong (03/13/2017 15:15:Jasmyne Camp, RNC) Quality: Moderate to Strong (03/13/2017 15:00:Jasmyne Camp, RNC) Quality: Moderate (03/13/2017 14:45:Jasmyne Camp, RNC) Quality: Moderate to Strong (03/13/2017 14:30:Jasmyne Camp, RNC) Quality: Moderate to Strong (03/13/2017 14:15:Jasmyne Camp, RNC) Quality: Moderate to Strong (03/13/2017 14:00:Jasmyne Camp, RNC) Quality: Moderate to Strong (03/13/2017 13:45:Jasmyne Camp, RNC) Quality: Mild/Moderate (03/13/2017 13:30:Nerissa Pyle RNC) Quality: Mild/Moderate (03/13/2017 13:15:Nerissa Edenilson, RNC) Quality: Moderate (03/13/2017 13:00:Jasmyne Camp, RNC) Quality: Mild/Moderate (03/13/2017 12:45:Jasmyne Camp, RNC) Quality: Mild/Moderate (03/13/2017 12:30:Nerissa Pyle, RNC) Quality: Mild/Moderate (03/13/2017 12:15:Nerissa Pyle, RNC) Quality: Mild/Moderate (03/13/2017 12:02:Jasmyne Camp, RNC) Quality: Mild/Moderate (03/13/2017 12:00:Nerissa Pyle, RNC) Quality: Mild/Moderate (03/13/2017 11:45:Nerissa Pyle, RNC) Quality: Mild/Moderate (03/13/2017 11:30:Nerissa Pyle, RNC) Quality: Mild/Moderate (03/13/2017 11:15:Nerissa Pyle, RNC) Quality: Mild (03/13/2017 10:45:Jasmyne Camp, RNC) Quality: Mild (03/13/2017 10:30:Jasmyne Camp, RNC) Quality: Mild/Moderate (03/13/2017 10:15:Nerissa Pyle, RNC) Quality: Mild (03/13/2017 10:00:Jasmyne Camp, RNC) Quality: Mild/Moderate (03/13/2017 09:45:Jasmyne Camp, RNC) Quality: Mild (03/13/2017 09:30:Jasmyne Camp, RNC) Quality: Mild (03/13/2017 09:15:Jasmyne Camp, RNC) Quality: Mild (03/13/2017 09:00:Jasmyne Camp, RNC) Quality: Mild (03/13/2017 08:45:Jasmyne Camp, RNC) Quality: Mild (03/13/2017 08:30:Jasmyne Camp, RNC) Quality: Mild (03/13/2017 08:15:Jasmyne Camp, RNC) Quality: Mild (03/13/2017 08:00:Jasmyne Camp, RNC) Quality: Mild (03/13/2017 07:45:Jasmyne Camp, RNC) Pattern: Normal: <= 5 Contractions in 10 Minutes (03/13/2017 17:45:Jasmyne Camp, RNC) Pattern: Normal: <= 5 Contractions in 10 Minutes (03/13/2017 17:30:Jasmyne Camp, RNC) Pattern: Normal: <= 5 Contractions in 10 Minutes (03/13/2017 17:15:Jasmyne Camp, RNC) Pattern: Normal: <= 5 Contractions in 10 Minutes (03/13/2017 16:45:Jasmyne Camp, RNC) Pattern: Normal: <= 5 Contractions in 10 Minutes (03/13/2017 16:30:Jasmyne Camp, RNC) Pattern: Normal: <= 5 Contractions in 10 Minutes (03/13/2017 16:15:Jasmyne Camp, RNC) Pattern: Normal: <= 5 Contractions in 10 Minutes (03/13/2017 16:00:Jasmyne Camp, RNC) Pattern: Normal: <= 5 Contractions in 10 Minutes (03/13/2017 15:45:Jasmyne Camp, RNC) Pattern: Normal: <= 5 Contractions in 10 Minutes (03/13/2017 15:30:Jasmyne Camp, RNC) Pattern: Normal: <= 5 Contractions in 10 Minutes (03/13/2017 15:15:Jasmyne Camp, RNC) Pattern: Normal: <= 5 Contractions in 10 Minutes (03/13/2017 15:00:Jasmyne Camp, RNC) Pattern: Normal: <= 5 Contractions in 10 Minutes (03/13/2017 14:30:Jasmyne Camp, RNC) Pattern: Normal: <= 5 Contractions in 10 Minutes (03/13/2017 14:15:Jasmyne Camp, RNC) Pattern: Normal: <= 5 Contractions in 10 Minutes (03/13/2017 14:00:Jasmyne Camp, RNC) Pattern: Normal: <= 5 Contractions in 10 Minutes (03/13/2017 13:45:Jasmyne Camp, RNC) Pattern: Normal: <= 5 Contractions in 10 Minutes (03/13/2017 13:30:Nerissa Pyle RNC) Pattern: Normal: <= 5 Contractions in 10 Minutes (03/13/2017 13:15:Nerissa Pyle, RNC) Pattern: Normal: <= 5 Contractions in 10 Minutes (03/13/2017 13:00:Jasmyne Camp, RNC) Pattern: Normal: <= 5 Contractions in 10 Minutes (03/13/2017 12:45:Jasmyne Camp, RNC) Pattern: Normal: <= 5 Contractions in 10 Minutes (03/13/2017 12:30:Nerissa Pyle RNC) Pattern: Normal: <= 5 Contractions in 10 Minutes (03/13/2017 12:15:Nerissa Pyle RNC) Pattern: Normal: <= 5 Contractions in 10 Minutes (03/13/2017 12:02:Jasmynestanislav Scales, RNC) Pattern: Normal: <= 5 Contractions in 10 Minutes (03/13/2017 12:00:Nerissa Pyle RNC) Pattern: Normal: <= 5 Contractions in 10 Minutes (03/13/2017 11:45:Nerissa Pyle RNC) Pattern: Normal: <= 5 Contractions in 10 Minutes (03/13/2017 11:30:Nerissa Pyle RNC) Pattern: Normal: <= 5 Contractions in 10 Minutes (03/13/2017 11:15:Nerissa Pyle RNC) Pattern: Normal: <= 5 Contractions in 10 Minutes (03/13/2017 10:45:Jasmyne Yordy, RNC) Pattern: Normal: <= 5 Contractions in 10 Minutes (03/13/2017 10:30:Jasmyne Yordy, RNC) Pattern: Normal: <= 5 Contractions in 10 Minutes (03/13/2017 10:15:Nerissa Pyle RNC) Pattern: Normal: <= 5 Contractions in 10 Minutes (03/13/2017 10:00:Jasmyne Yordy, RNC) Pattern: Normal: <= 5 Contractions in 10 Minutes (03/13/2017 09:45:Jasmyne Camp, RNC) Pattern: Normal: <= 5 Contractions in 10 Minutes (03/13/2017 09:30:Jasmyne Camp, RNC) Pattern: Normal: <= 5 Contractions in 10 Minutes (03/13/2017 09:15:Jasmyne Camp, RNC) Pattern: Normal: <= 5 Contractions in 10 Minutes (03/13/2017 09:00:Jasmyne Camp, RNC) Pattern: Normal: <= 5 Contractions in 10 Minutes (03/13/2017 08:45:Jasmyne Camp, RNC) Pattern: Normal: <= 5 Contractions in 10 Minutes (03/13/2017 08:30:Jasmyne Camp, RNC) Pattern: Normal: <= 5 Contractions in 10 Minutes (03/13/2017 08:15:Jasmyne Camp, RNC) Pattern: Normal: <= 5 Contractions in 10 Minutes (03/13/2017 08:00:Jasmyne Camp, RNC) Pattern: Normal: <= 5 Contractions in 10 Minutes (03/13/2017 07:45:Jasmyne Camp, RNC) Resting Tone [place]: Relaxed (03/13/2017 17:45:Jasmyne Camp, RNC) Resting Tone [place]: Relaxed (03/13/2017 17:30:Jasmyne Camp, RNC) Resting Tone [place]: Relaxed (03/13/2017 17:15:Jasmyne Camp, RNC) Resting Tone [place]: Relaxed (03/13/2017 17:00:Jasmyne Camp, RNC) Resting Tone [place]: Relaxed (03/13/2017 16:45:Jasmyne Camp, RNC) Resting Tone [place]: Relaxed (03/13/2017 16:30:Jasmyne Camp, RNC) Resting Tone [place]: Relaxed (03/13/2017 16:15:Jasmyne Camp, RNC) Resting Tone [place]: Relaxed (03/13/2017 16:00:Jasmyne Camp, RNC) Resting Tone [place]: Relaxed (03/13/2017 15:45:Jasmyne Camp, RNC) Resting Tone [place]: Relaxed (03/13/2017 15:30:Jasmyne Camp, RNC) Resting Tone [place]: Relaxed (03/13/2017 15:15:Jasmyne Camp, RNC) Resting Tone [place]: Relaxed (03/13/2017 15:00:Jasmyne Camp, RNC) Resting Tone [place]: Relaxed (03/13/2017 14:45:Jasmyne Camp, RNC) Resting Tone [place]: Relaxed (03/13/2017 14:30:Jasmyne Camp, RNC) Resting Tone [place]: Relaxed (03/13/2017 14:15:Jasmyne Camp, RNC) Resting Tone [place]: Relaxed (03/13/2017 14:00:Jasmyne Camp, RNC) Resting Tone [place]: Relaxed (03/13/2017 13:45:Jasmyne Camp, RNC) Resting Tone [place]: Relaxed (03/13/2017 13:30:RODNEY Khanna) Resting Tone [place]: Relaxed (03/13/2017 13:15:Nerissa Pyle RNC) Resting Tone [place]: Relaxed (03/13/2017 13:00:Jasmynestanislav Scales, RNC) Resting Tone [place]: Relaxed (03/13/2017 12:45:Jasmynestanislav Scales, RNC) Resting Tone [place]: Relaxed (03/13/2017 12:30:Nerissa Pyle RNC) Resting Tone [place]: Relaxed (03/13/2017 12:15:Nerissa Pyle RNC) Resting Tone [place]: Relaxed (03/13/2017 12:02:Jasmynestanislav Scales, RNC) Resting Tone [place]: Relaxed (03/13/2017 12:00:Nerissa Pyle RNC) Resting Tone [place]: Relaxed (03/13/2017 11:45:Nerissa Pyle RNC) Resting Tone [place]: Relaxed (03/13/2017 11:30:Nerissa Pyle RNC) Resting Tone [place]: Relaxed (03/13/2017 11:15:Nerissa Pyle RNC) Resting Tone [place]: Relaxed (03/13/2017 11:00:Jasmynestanislav Scales, RNC) Resting Tone [place]: Relaxed (03/13/2017 10:45:Jasmyne Camp, RNC) Resting Tone [place]: Relaxed (03/13/2017 10:30:Jasymne Camp, RNC) Resting Tone [place]: Relaxed (03/13/2017 10:15:Nerissa Pyle RNC) Resting Tone [place]: Relaxed (03/13/2017 10:00:Jasmyne Camp, RNC) Resting Tone [place]: Relaxed (03/13/2017 09:45:Jasmyne Camp, RNC) Resting Tone [place]: Relaxed (03/13/2017 09:30:Ajsmyne Camp, RNC) Resting Tone [place]: Relaxed (03/13/2017 09:15:Jasmyne Camp, RNC) Resting Tone [place]: Relaxed (03/13/2017 09:00:Jasmyne Camp, RNC) Resting Tone [place]: Relaxed (03/13/2017 08:45:Jasmyne Camp, RNC) Resting Tone [place]: Relaxed (03/13/2017 08:30:Jasmyne Camp, RNC) Resting Tone [place]: Relaxed (03/13/2017 08:15:Jasmyne Camp, RNC) Resting Tone [place]: Relaxed (03/13/2017 08:00:Jasmyne Camp, RNC) Resting Tone [place]: Relaxed (03/13/2017 07:45:Jasmyne Camp, RNC) Contraction Comments: couplets noted (03/13/2017 15:30:Jasmyne Camp, RNC) Contraction Comments: couplets noted (03/13/2017 10:30:Jasmyne Camp, RNC) Contraction Comments: RN at bedside adjusting monitors (03/13/2017 09:15:Jasmyne Camp, RNC) VAGINAL EXAM Dilatation (cm): 10.0 (03/13/2017 17:23:Jasmyne Camp, RNC) Dilatation (cm): 9.5 (03/13/2017 16:30:Jasmyne Camp, RNC) Dilatation (cm): 5.5 (03/13/2017 14:30:Jasmyne Camp, RNC) Dilatation (cm): 4.0 (03/13/2017 12:27:Jasmyne Camp, RNC) Dilatation (cm): 2.5 (03/13/2017 08:09:Jasmyne Camp, RNC) Dilatation (cm): 2.5 (03/13/2017 07:45:Jasmyne Camp, RNC) Effacement (%): 100 (03/13/2017 17:23:Jasmyne Camp, RNC) Effacement (%): 100 (03/13/2017 16:30:Jasmyne Camp, RNC) Effacement (%): 90 (03/13/2017 14:30:Jasmyne Camp, RNC) Effacement (%): 80 (03/13/2017 12:27:Jasmyne Camp, RNC) Effacement (%): 80 (03/13/2017 08:09:Jasmyne Camp, RN) Effacement (%): 80 (03/13/2017 07:45:Jasmyne Camp, RNC) Station: 2 (03/13/2017 17:23:Jasmyne Camp, RNC) Station: 2 (03/13/2017 16:30:Jasmyne Camp, RNC) Station: 0 (03/13/2017 14:30:Jasmyne Camp, RN) Station: -1 (03/13/2017 12:27:Jasmyne Camp, [facility]) Station: -1 (03/13/2017 08:09:Jasmyne Camp, [facility]) Station: -1 (03/13/2017 07:45:Jasmyne Camp, [facility]) Presentation on Admission: Vertex (03/13/2017 07:45:Jasmyne Camp, [facility]) Membranes Status: Ruptured (03/13/2017 12:27:Jasmyne Camp, [facility]) Membranes Status: Intact (03/13/2017 07:45:Jasmyne Camp, [facility]) ROM Method: Artificial (03/13/2017 12:27:Jasmyne Camp, [facility]) Amniotic Fluid Color: Clear (03/13/2017 12:27:Jasmyne Camp, [facility]) Amniotic Fluid Amount: Small (03/13/2017 12:27:Jasmyne Camp, [facility]) Amniotic Fluid Odor: Normal (03/13/2017 12:27:Jasmyne Camp, [facility]) JAMES'S SCORE James's Score Dilatation (cm): 1-2 cm (03/13/2017 07:45:Jasmyne Camp, [facility]) James's Score Effacement (%): >80_ effaced (03/13/2017 07:45:Jasmyne Camp, RNC) James's Score Station: minus 1 to 0 (03/13/2017 07:45:Jasmyne Camp, RN) James's Score Consistency: Soft (03/13/2017 07:45:Jasmyne Camp, RNC) James's Score Position: Midposition (03/13/2017 07:45:Jasmyne Camp, [facility]) Total James's Score: 9 (03/13/2017 07:45:QS system process) James's Score Text: 9-14 = Usually no failure for induction (03/13/2017 07:45:QS system process) NEURO Level of Consciousness: Fully Conscious (03/13/2017 07:45:Jasmyne Camp, [facility]) DTR's/Clonus: DTRs 2+; No Clonus (03/13/2017 07:45:Jasmyne Camp, [facility]) Headache: Denies (03/13/2017 07:45:Jasmyne Camp, [facility]) Dizziness: No (03/13/2017 07:45:Jasmyne Camp, [facility]) Blurred Vision: No (03/13/2017 07:45:Jasmyne Camp, [facility]) Extremity Numbness/Tingling : None (03/13/2017 07:45:Jasmyne Camp, [facility]) Extremity Movement: Full Range of Motion (03/13/2017 07:45:Jasmyne Camp, [facility]) CARDIOVASCULAR Nailbeds: [place] (03/13/2017 07:45:Jasmyne Camp, RNC) Capillary Refill: Less than 3 Seconds (03/13/2017 07:45:Jasmyne Camp, RNC) Lower Extremities Edema: None (03/13/2017 07:45:Jasmyne Camp, RNC) Lower Extremities Edema Degree: None (03/13/2017 07:45:Jasmyne Camp, RNC) Upper Extremities Edema: None (03/13/2017 07:45:Jasmyne Camp, RNC) Upper Extremities Edema Degree: None (03/13/2017 07:45:Jasmyne Camp, RNC) Facial Edema: None (03/13/2017 07:45:Jasmyne Camp, RNC) Grecia's Sign Left Leg: Negative (03/13/2017 07:45:Jasmyne Camp, RNC) Grecia's Sign Right Leg: Negative (03/13/2017 07:45:Jasmyne Camp, RNC) DVT RISK ASSESSMENT DVT Risk Age: Age less than 41 years (03/13/2017 07:45:Jasmyne Camp, RNC) DVT Risk BMI: BMI<31 (03/13/2017 07:45:Jasmyne Camp, RNC) DVT Risk Surgery: None Applicable (03/13/2017 07:45:Jasmyne Camp, RNC) DVT Risk Other: Women Only- or (<1 month) (03/13/2017 07:45:Jasmyne Camp, RNC) DVT Risk Total: 1 (03/13/2017 07:45:QS system process) DVT Risk Text: Low Risk (<10%) No specific measures, early ambulation (03/13/2017 07:45:QS system process) RESPIRATORY Respiratory Effort: Unlabored; Regular Rhythm; Equal Expansion (03/13/2017 07:45:Jasmyne Camp, RNC) Breath Sounds, Left: Clear and Equal (03/13/2017 07:45:Jasmyne Camp, RNC) Breath Sounds, Right: Clear and Equal (03/13/2017 07:45:Jasmyne Camp, RNC) Cough Productivity: None (03/13/2017 07:45:Jasmyne Camp, RNC) GASTROINTESTINAL Nausea/Vomiting: Denies (03/13/2017 07:45:Jasmyne Camp, RNC) Bowel Sounds: Normoactive; All Quadrants (03/13/2017 07:45:Jasmyne Camp, RNC) RUQ Epigastric Pain: Denies (03/13/2017 07:45:Jasmyne Camp, [facility]) Bowel Patterns: Soft, Formed Stool (03/13/2017 07:45:Jasmyne Camp, [facility]) Hemorrhoids: None (03/13/2017 07:45:Jasmyne Camp, [facility]) Diet Type: Regular diet (03/13/2017 07:45:Jasmyne Camp, [facility]) Last Meal: 03/13/2017 06:30 (03/13/2017 07:45:Jasmyne Camp, [facility]) GENITOURINARY Bladder: Nondistended (03/13/2017 07:45:Jasmyne Camp, [facility]) Frequency of Urination: No (03/13/2017 07:45:Jasmyne Camp, [facility]) Urination Burning: No (03/13/2017 07:45:Jasmyne Camp, [facility]) CVA Tenderness: No (03/13/2017 07:45:Jasmyne Camp, [facility]) Vaginal Bleeding: Scant (03/13/2017 07:45:Jasmyne Camp, [facility]) Vaginal Discharge Amount: Small (03/13/2017 07:45:Jasmyne Camp, [facility]) Vaginal Discharge Color: Brown (03/13/2017 07:45:Jasmyne Camp, [facility]) Vaginal Discharge Character: Thick (03/13/2017 07:45:Jasmyne Camp, [facility]) INTEGUMENTARY Skin Color: Normal for Race (03/13/2017 07:45:RODNEY Hair) Skin Temperature: Warm (03/13/2017 07:45:[facility]ODNEY Hair) Skin Moisture: Dry (03/13/2017 07:45:RODNEY Hair) Surgical Scars: appendectomy, and lumpectomy (03/13/2017 07:45:RODNEY Hair) Body Piercings/Tattoos: multiple tattoos and ears pierced (03/13/2017 07:45:RODNEY Hair) JAIME SKIN ASSESSMENT Jaime Scale Sensory Perception: No Impairment- Responds to verbal commands. Has no sensory deficit which would limit ability to feel or voice pain or discomfort (03/13/2017 07:45:RODNEY Hair) Jaime Scale Moisture: Rarely Moist- Skin is usually dry. Linen only requires changing at routine intervals (03/13/2017 07:45:RODNEY Hair) Jaime Scale Activity: Walks Frequently- Walks outside the room at least twice a day and inside room at least every 2 hours during the day. (03/13/2017 07:45:RODNEY Hair) Jaime Scale Mobility: No Limitations- Makes major and frequent changes in position without assistance (03/13/2017 07:45:RODNEY Hair) Jaime Scale Nutrition: Excellent- Eats most of every meal. Never refuses a meal. Usually eats a total of 4 or more servings of meat and dairy products. Occasionally eats between meals. Does not require supplementation (03/13/2017 07:45:RODNEY Hair) Jaime Scale Friction and Shear: No Apparent Problem- Moves in bed and in chair independently and has sufficient muscle strength to lift up completely during move. Maintains good position in bed or chair at all times (03/13/2017 07:45:RODNEY Hair) Jaime Scale Total: 23 (03/13/2017 07:45:QS system process) Jaime Scale Risk: No Risk of Pressure Ulcer Noted at this Time (03/13/2017 07:45:QS system process) SUPPORT Family Support: Significant Other supportive, at bedside frequently; Family supportive (Annotations: mother and at bedside, appear supportive) (03/13/2017 07:45:RODNEY Hair) Emotional State: Calm/Relaxed (03/13/2017 07:45:RODNEY Hair) SAFETY Call [place] Within Reach: Yes (03/13/2017 07:45:RODNEY Hair) Side Rails Up: Yes (03/13/2017 07:45:RODNEY Hair) Bed Wheels Locked: Yes (03/13/2017 07:45:RODNEY Hair) Arm Bands Present: Yes (03/13/2017 07:45:RODNEY Hair) Isolation: [place] (03/13/2017 07:45:RODNEY Hair) FALL SCREEN Fall Risk History of Falling: (0) No (03/13/2017 07:45:RODNEY Hair) Fall Risk Secondary Diagnosis: (0) No (03/13/2017 07:45:RODNEY Hair) Fall Risk Ambulatory Aid: (0) None/Bedrest/Wheelchair/Nurse Assist (03/13/2017 07:45:RODNEY Hair) Fall Risk IV Therapy: (20) Yes (03/13/2017 07:45:RODNEY Hair) Fall Risk Gait: (0) Normal/Bedrest/Immobile (03/13/2017 07:45:RODNEY Hair) Fall Risk Mental Status: (0) Oriented to Own Ability (03/13/2017 07:45:RODNEY Hair) Fall Risk Score: 20 (03/13/2017 07:45:QS system process) Fall Risk Score Definition: No Risk: No action required (03/13/2017 07:45:QS system process) RECENT TRAVEL/INFECTIOUS DISEASE Recent Exp Communicable Disease: No (03/13/2017 07:45:Jasmyne Camp, [facility]) Cough or Fever: No (03/13/2017 07:45:Jasmyne Camp, [facility]) Foreign Travel Past 10 Days: No (03/13/2017 07:45:Jasmyne Camp, [facility]) Open Wounds or Sores: No (03/13/2017 07:45:Jasmyne Camp, [facility]) Prior Antibiotic Resistance Tx: No (03/13/2017 07:45:Jasmyne Camp, [facility]) Cultures Obtained: Not Applicable (03/13/2017 07:45:Jasmyne Camp, [facility]) Isolation Initiated: No (03/13/2017 07:45:Jasmyne Camp, [facility]) Pt/Family Education: Not Applicable (03/13/2017 07:45:Jasmyne Camp, [facility]) BABY A FHR Baseline Rate (bpm) Baby A: 140 (03/13/2017 17:45:Jasmyne Camp, [facility]) FHR Baseline Rate (bpm) Baby A: 145 (03/13/2017 17:30:Jasmyne Camp, [facility]) FHR Baseline Rate (bpm) Baby A: 145 (03/13/2017 17:15:Jasmyne Camp, [facility]) FHR Baseline Rate (bpm) Baby A: 140 (03/13/2017 17:00:Jasmyne Camp, [facility]) FHR Baseline Rate (bpm) Baby A: 135 (03/13/2017 16:45:Jasmyne Camp, [facility]) FHR Baseline Rate (bpm) Baby A: 135 (03/13/2017 16:30:Jasmyne Scales, [facility]) FHR Baseline Rate (bpm) Baby A: 140 (03/13/2017 16:15:Jasmyne Scales, [facility]) FHR Baseline Rate (bpm) Baby A: 140 (03/13/2017 16:00:Jasmyne Scales, [facility]) FHR Baseline Rate (bpm) Baby A: 135 (03/13/2017 15:45:Jasmyne Scales, [facility]) FHR Baseline Rate (bpm) Baby A: 130 (03/13/2017 15:30:Jasmyne Scales RNC) FHR Baseline Rate (bpm) Baby A: 135 (03/13/2017 15:15:Jasmyne Scales RNC) FHR Baseline Rate (bpm) Baby A: 135 (03/13/2017 15:00:Jasmyne Scales R[facility]) FHR Baseline Rate (bpm) Baby A: 135 (03/13/2017 14:45:Jasmyne Scales RNC) FHR Baseline Rate (bpm) Baby A: 130 (03/13/2017 14:30:Jasmyne Scales, [facility]) FHR Baseline Rate (bpm) Baby A: 135 (03/13/2017 14:15:Jasmyne Scales RNC) FHR Baseline Rate (bpm) Baby A: 135 (03/13/2017 14:00:Jasmyne Scales RNC) FHR Baseline Rate (bpm) Baby A: 140 (03/13/2017 13:45:Jasmyne Scales RNC) FHR Baseline Rate (bpm) Baby A: 135 (03/13/2017 13:30:RODNEY Khanna) FHR Baseline Rate (bpm) Baby A: 135 (03/13/2017 13:15:RODNEY Khanna) FHR Baseline Rate (bpm) Baby A: 145 (03/13/2017 13:00:Jasmyne Scales [facility]) FHR Baseline Rate (bpm) Baby A: 140 (03/13/2017 12:45:Jasmyne Scales RNC) FHR Baseline Rate (bpm) Baby A: 145 (03/13/2017 12:30:RODNEY Khanna) FHR Baseline Rate (bpm) Baby A: 140 (03/13/2017 12:15:RODNEY Khanna) FHR Baseline Rate (bpm) Baby A: 145 (03/13/2017 12:02:RODNEY Hair) FHR Baseline Rate (bpm) Baby A: 145 (03/13/2017 12:00:RODNEY Khanna) FHR Baseline Rate (bpm) Baby A: 145 (03/13/2017 11:45:RODNEY Khanna) FHR Baseline Rate (bpm) Baby A: 140 (03/13/2017 11:30:RODNEY Khanna) FHR Baseline Rate (bpm) Baby A: 140 (03/13/2017 11:15:RODNEY Khanna) FHR Baseline Rate (bpm) Baby A: 140 (03/13/2017 11:00:RODNEY Hair) FHR Baseline Rate (bpm) Baby A: 135 (03/13/2017 10:45:RODNEY Hair) FHR Baseline Rate (bpm) Baby A: 140 (03/13/2017 10:30:RODNEY Hair) FHR Baseline Rate (bpm) Baby A: 135 (03/13/2017 10:15:RODNEY Khanna) FHR Baseline Rate (bpm) Baby A: 140 (03/13/2017 10:00:RODNEY Hair) FHR Baseline Rate (bpm) Baby A: 140 (03/13/2017 09:45:RODNEY Hair) FHR Baseline Rate (bpm) Baby A: 135 (03/13/2017 09:30:RODNEY Hair) FHR Baseline Rate (bpm) Baby A: 140 (03/13/2017 09:15:RODNEY Hair) FHR Baseline Rate (bpm) Baby A: 140 (03/13/2017 09:00:RODNEY Hair) FHR Baseline Rate (bpm) Baby A: 140 (03/13/2017 08:45:RODNEY Hair) FHR Baseline Rate (bpm) Baby A: 140 (03/13/2017 08:30:RODNEY Hair) FHR Baseline Rate (bpm) Baby A: 145 (03/13/2017 08:15:Jasmyne Camp, [facility]) FHR Baseline Rate (bpm) Baby A: 145 (03/13/2017 08:00:Jasmyne Camp, [facility]) FHR Baseline Rate (bpm) Baby A: 145 (03/13/2017 07:45:Jasmyne Camp, [facility]) Variability Baby A: Moderate 6-25 bpm (03/13/2017 17:45:Jasmyne Camp, [facility]) Variability Baby A: Moderate 6-25 bpm (03/13/2017 17:30:Jasmyne Camp, [facility]) Variability Baby A: Moderate 6-25 bpm (03/13/2017 17:15:Jasmyne Camp, [facility]) Variability Baby A: Moderate 6-25 bpm (03/13/2017 17:00:Jasmyne Camp, [facility]) Variability Baby A: Moderate 6-25 bpm (03/13/2017 16:45:Jasmyne Camp, [facility]) Variability Baby A: Moderate 6-25 bpm (03/13/2017 16:30:Jasmyne Camp, [facility]) Variability Baby A: Moderate 6-25 bpm (03/13/2017 16:15:Jasmyne Camp, [facility]) Variability Baby A: Moderate 6-25 bpm (03/13/2017 16:00:Jasmyne Camp, [facility]) Variability Baby A: Moderate 6-25 bpm (03/13/2017 15:45:Jasmyne Camp, [facility]) Variability Baby A: Moderate 6-25 bpm (03/13/2017 15:30:Jasmyne Camp, [facility]) Variability Baby A: Moderate 6-25 bpm (03/13/2017 15:15:Jasmyne Camp, [facility]) Variability Baby A: Moderate 6-25 bpm (03/13/2017 15:00:Jasmyne Camp, [facility]) Variability Baby A: Minimal - Undetectable to <=5 bpm (03/13/2017 14:45:Jasmyne Camp, [facility]) Variability Baby A: Moderate 6-25 bpm (03/13/2017 14:30:Jasmyne Camp, [facility]) Variability Baby A: Minimal - Undetectable to <=5 bpm (03/13/2017 14:15:Jasmyne Camp, [facility]) Variability Baby A: Minimal - Undetectable to <=5 bpm (03/13/2017 14:00:Jasmyne Camp, [facility]) Variability Baby A: Moderate 6-25 bpm (03/13/2017 13:45:RODNEY Hair) Variability Baby A: Moderate 6-25 bpm (03/13/2017 13:30:RODNEY Khanna) Variability Baby A: Moderate 6-25 bpm (03/13/2017 13:15:RODNEY Khanna) Variability Baby A: Moderate 6-25 bpm (03/13/2017 13:00:Jasmyne Scales [facility]) Variability Baby A: Moderate 6-25 bpm (03/13/2017 12:45:RODNEY Hair) Variability Baby A: Moderate 6-25 bpm (03/13/2017 12:30:RDONEY Khanna) Variability Baby A: Moderate 6-25 bpm (03/13/2017 12:15:RODNEY Khanna) Variability Baby A: Moderate 6-25 bpm (03/13/2017 12:02:RODNEY Hair) Variability Baby A: Moderate 6-25 bpm (03/13/2017 12:00:RODNEY Khanna) Variability Baby A: Moderate 6-25 bpm (03/13/2017 11:45:RODNEY Khanna) Variability Baby A: Moderate 6-25 bpm (03/13/2017 11:30:RODNEY Khanna) Variability Baby A: Moderate 6-25 bpm (03/13/2017 11:15:RODNEY Khanna) Variability Baby A: Moderate 6-25 bpm (03/13/2017 11:00:RODNEY Hair) Variability Baby A: Moderate 6-25 bpm (03/13/2017 10:45:RODNEY Hair) Variability Baby A: Minimal - Undetectable to <=5 bpm (03/13/2017 10:30:Jasmyne Scales [facility]) Variability Baby A: Moderate 6-25 bpm (03/13/2017 10:15:RODNEY Khanna) Variability Baby A: Moderate 6-25 bpm (03/13/2017 10:00:Jasmyne Scales [facility]) Variability Baby A: Moderate 6-25 bpm (03/13/2017 09:45:RODNEY Hair) Variability Baby A: Moderate 6-25 bpm (03/13/2017 09:30:Jasmyne Camp, [facility]) Variability Baby A: Moderate 6-25 bpm (03/13/2017 09:15:Jasmyne Camp, [facility]) Variability Baby A: Moderate 6-25 bpm (03/13/2017 09:00:Jasmyne Camp, [facility]) Variability Baby A: Moderate 6-25 bpm (03/13/2017 08:45:Jasmyne Camp, [facility]) Variability Baby A: Moderate 6-25 bpm (03/13/2017 08:30:Jasmyne Camp, [facility]) Variability Baby A: Moderate 6-25 bpm (03/13/2017 08:15:Jasmyne Camp, [facility]) Variability Baby A: Moderate 6-25 bpm (03/13/2017 08:00:Jasmyne Camp, [facility]) Variability Baby A: Moderate 6-25 bpm (03/13/2017 07:45:Jasmyne Camp, [facility]) Accelerations Baby A: 15X15 (03/13/2017 17:30:Jasmyne Camp, [facility]) Accelerations Baby A: 15X15 (03/13/2017 17:15:Jasmyne Camp, [facility]) Accelerations Baby A: 10X10 (03/13/2017 17:00:Jasmyne Camp, [facility]) Accelerations Baby A: 10X10 (03/13/2017 16:45:Jasmyne Camp, [facility]) Accelerations Baby A: 10X10 (03/13/2017 16:30:Jasmyne Camp, [facility]) Accelerations Baby A: 15X15 (03/13/2017 16:00:Jasmyne Camp, [facility]) Accelerations Baby A: 10X10 (03/13/2017 15:45:Jasmyne Camp, [facility]) Accelerations Baby A: 15X15 (03/13/2017 15:30:Jasmyne Camp, [facility]) Accelerations Baby A: 15X15 (03/13/2017 15:15:Jasmyne Camp, [facility]) Accelerations Baby A: 15X15 (03/13/2017 15:00:Jasmyne Camp, [facility]) Accelerations Baby A: 15X15 (03/13/2017 14:30:Jasmyne Camp, [facility]) Accelerations Baby A: 15X15 (03/13/2017 14:15:Jasmyne Camp, [facility]) Accelerations Baby A: 15X15 (03/13/2017 14:00:Jasmyne Scales RNMj) Accelerations Baby A: 15X15 (03/13/2017 13:45:RODNEY Hair) Accelerations Baby A: 15X15 (03/13/2017 13:30:RODNEY Khanna) Accelerations Baby A: None (03/13/2017 13:15:RODNEY Khanna) Accelerations Baby A: 15X15 (03/13/2017 13:00:Jasmyne Scales [facility]) Accelerations Baby A: 15X15 (03/13/2017 12:45:Jasmyne Scales RNMj) Accelerations Baby A: Prolonged (03/13/2017 12:30:RODNEY Khanna) Accelerations Baby A: 15X15 (03/13/2017 12:15:RODNEY Khanna) Accelerations Baby A: 15X15 (03/13/2017 12:02:Jasmyne Scales R[facility]) Accelerations Baby A: 15X15 (03/13/2017 12:00:RODNEY Khanna) Accelerations Baby A: 15X15 (03/13/2017 11:45:RODNEY Khanna) Accelerations Baby A: 15X15 (03/13/2017 11:30:RODNEY Khanna) Accelerations Baby A: 15X15 (03/13/2017 11:15:RODNEY Khanna) Accelerations Baby A: 15X15 (03/13/2017 11:00:Jasmyne Scales [facility]) Accelerations Baby A: 15X15 (03/13/2017 10:45:Jasmyne Scales RNMj) Accelerations Baby A: None (03/13/2017 10:30:Jasmyne Scales [facility]) Accelerations Baby A: 15X15 (03/13/2017 10:15:RODNEY Khanna) Accelerations Baby A: 15X15 (03/13/2017 10:00:Jasmyne Scales [facility]) Accelerations Baby A: 15X15 (03/13/2017 09:45:Jasmyne Scales [facility]) Accelerations Baby A: 15X15 (03/13/2017 09:30:Jasmyne Scales [facility]) Accelerations Baby A: 15X15 (03/13/2017 09:15:Jasmyne Camp, [facility]) Accelerations Baby A: 15X15 (03/13/2017 09:00:Jasmyne Camp, [facility]) Accelerations Baby A: 15X15 (03/13/2017 08:45:Jasmyne Camp, [facility]) Accelerations Baby A: 15X15 (03/13/2017 08:30:Jasmyne Camp, [facility]) Accelerations Baby A: Prolonged (03/13/2017 08:15:Jasmyne Camp, [facility]) Accelerations Baby A: Prolonged (03/13/2017 08:00:Jasmyen Camp, [facility]) Accelerations Baby A: 15X15 (03/13/2017 07:45:Jasmyne Camp, [facility]) Decelerations Baby A: Variable (03/13/2017 17:45:Jasmyne Camp, [facility]) Decelerations Baby A: Variable (03/13/2017 17:30:Jasmyne Camp, [facility]) Decelerations Baby A: Early (03/13/2017 17:15:Jasmyne Camp, [facility]) Decelerations Baby A: None (03/13/2017 17:00:Jasmyne Camp, [facility]) Decelerations Baby A: Early (03/13/2017 16:45:Jasmyne Camp, [facility]) Decelerations Baby A: Early (03/13/2017 16:30:Jasmyne Camp, [facility]) Decelerations Baby A: Early (03/13/2017 16:15:Jasmyne Camp, [facility]) Decelerations Baby A: Early (03/13/2017 16:00:Jasmyne Camp, [facility]) Decelerations Baby A: None (03/13/2017 15:45:Jasmyne Camp, [facility]) Decelerations Baby A: None (03/13/2017 15:30:Jasmyne Camp, [facility]) Decelerations Baby A: None (03/13/2017 15:15:Jasmyne Camp, [facility]) Decelerations Baby A: None (03/13/2017 15:00:Jasmyne Camp, [facility]) Decelerations Baby A: Early (03/13/2017 14:45:Jasmyne Camp, [facility]) Decelerations Baby A: None (03/13/2017 14:30:Jasmyne Camp, [facility]) Decelerations Baby A: None (03/13/2017 14:15:RODNEY Hair) Decelerations Baby A: None (03/13/2017 14:00:RODNEY Hair) Decelerations Baby A: None (03/13/2017 13:45:RODNEY Hair) Decelerations Baby A: None (03/13/2017 13:30:RODNEY Khanna) Decelerations Baby A: None (03/13/2017 13:15:RODNEY Khanna) Decelerations Baby A: None (03/13/2017 12:45:RODNEY Hair) Decelerations Baby A: None (03/13/2017 12:30:RODNEY Khanna) Decelerations Baby A: None (03/13/2017 12:15:RODNEY Khanna) Decelerations Baby A: None (03/13/2017 12:02:RODNEY Hair) Decelerations Baby A: None (03/13/2017 12:00:RODNEY Khanna) Decelerations Baby A: None (03/13/2017 11:45:RODNEY Khanna) Decelerations Baby A: None (03/13/2017 11:30:RODNEY Khanna) Decelerations Baby A: None (03/13/2017 11:15:RODNEY Khanna) Decelerations Baby A: None (03/13/2017 11:00:RODNEY Hair) Decelerations Baby A: None (03/13/2017 10:45:RODNEY Hair) Decelerations Baby A: None (03/13/2017 10:30:RODNEY Hair) Decelerations Baby A: None (03/13/2017 10:15:RODNEY Khanna) Decelerations Baby A: None (03/13/2017 10:00:RODNEY Hair) Decelerations Baby A: None (03/13/2017 09:45:RODNEY Hair) Decelerations Baby A: None (03/13/2017 09:30:RODNEY Hair) Decelerations Baby A: None (03/13/2017 09:15:Jasmyne Scales, RN) Decelerations Baby A: None (03/13/2017 09:00:Jasmyne Camp, RN) Decelerations Baby A: None (03/13/2017 08:45:Jasmynestanislav Scales, RN) Decelerations Baby A: None (03/13/2017 08:30:Jasmyne Camp, RN) Decelerations Baby A: None (03/13/2017 08:15:Jasmyne Scales, RN) Decelerations Baby A: None (03/13/2017 08:00:Jasmyne Camp, RN) Decelerations Baby A: None (03/13/2017 07:45:Jasmyne Camp, [facility]) ADDITIONAL COMMENTS Assessment Flag: Admission Assessment (03/13/2017 07:45:QS system process)
--- NOTE | 2017-03-14 10:46 | L&D Flow Sheet ---
LD Flowsheet Datetime Report Generated by CPN: 03/14/2017 10:45 Datetime: 03/14/2017 08:50 NBP Sys/Marry/Mean (mmHg): 116 (QS system process) : 71 (QS system process) : 88 (QS system process) Pulse: 131 (QS system process) Respirations: 16 (Jasmyne Camp, [facility]) Temperature (F): 97.7 (Jasmyne Camp, [facility]) Temperature (C): 36.5 (QS system process) Pain Scale: 1 (Jasmyne Camp, [facility]) Pain Presence: Intermittent (Jasmyne Camp, [facility]) Pain Type: Cramping (Jasmyne Camp, [facility]) Pain Location: Abdomen (Jasmyne Camp, [facility]) Pain Relief Measures: Comfort Measures (Jasmyne Camp, [facility]) Datetime: 03/14/2017 07:20 Stage of : Recovery (Jasmyne Camp, [facility]) Pain Scale: 1 (Jasmyne Camp, RN) Pain Presence: Intermittent (Jasmyne Camp, [facility]) Pain Type: Cramping (Jasmyne Camp, [facility]) Pain Location: Abdomen (Jasmyne Camp, [facility]) Pain Relief Measures: Pain Medication Given; Comfort Measures (Annotations: states a reduction in cramping with po Motrin) (Jasmyne Canutillo, [facility]) Pain Assessment Comments: resting comfortably with no complaints (Jasmyne Camp, [facility]) Datetime: 03/14/2017 06:00 Pain Scale: 1 (Dyan Erum, RN) Datetime: 03/14/2017 04:17 NBP Sys/Marry/Mean (mmHg): 109 (QS system process) : 67 (QS system process) : 84 (QS system process) Pulse: 81 (QS system process) Respirations: 16 (Dyan Danielson RN) Temperature (F): 98.1 (Dyan Danielson RN) Temperature (C): 36.7 (QS system process) Temperature Route: Oral (Dyan Danielson RN) Pain Assessment Comments: Pt states perineum is very sore. When asked if she wanted stronger pain med, she declined. (Dyan Danielson RN) Datetime: 03/13/2017 23:31 NBP Sys/Marry/Mean (mmHg): 101 (QS system process) : 56 (QS system process) : 73 (QS system process) Pulse: 85 (QS system process) Respirations: 16 (Dyan Danielson RN) Temperature (F): 98.6 (Dyan Danielson RN) Temperature (C): 37.0 (QS system process) Temperature Route: Oral (Dyan Danielson RN)
--- NOTE | 2017-03-14 10:46 | L&D Discharge Summary ---
OB Discharge Summary Datetime Report Generated by CPN: 03/14/2017 10:45 DISCHARGE DIAGNOSIS Diagnosis/Symptoms: Other Diagnoses/Symptoms Other: Kidney stone Gestation: 40.0 Number of Babies in Womb: 1 Parity: 0 DIET/ACTIVITY/RESTRICTIONS Diet: Regular Activity: Normal Activity TEACHING/INSTRUCTIONS/REFERRALS Instructions Given To: Patient Instructions Understood: Patient Verbalized Understanding; Support Person Verbalized Understanding Referrals: None Educational Materials- Other: PO hydration, medication administration DISCHARGE INFORMATION Discharged AMA: No Discharged To: Home Discharge Provider Name: Dr. Camacho Accompanied By: spouse Discharge Method: Wheelchair Condition: Stable FOLLOW UP INFORMATION Follow Up With: [facility] Follow Up On: As Scheduled
--- NOTE | 2017-03-14 10:46 | L&D General Admission ---
General Admit Datetime Report Generated by CPN: 03/14/2017 10:45 INFORMATION Patient Age: 21 (11/15/2016 22:55:QS system process) EDC: 03/13/2017 00:00 (11/15/2016 22:57:Carolann Gonzalez RN) : 2 (11/15/2016 22:57:Carolann Gonzalez RN) Para: 0 (11/15/2016 22:57:Carolann Gonzalez RN) Term: 0 (11/15/2016 22:57:RODNEY Hair) : 0 (11/15/2016 22:57:RODNEY Hair) Spontaneous Abortions: 0 (11/15/2016 22:57:RODNEY Hair) Induced Abortions: 1 (11/15/2016 22:57:RODNEY Hair) Livin (11/15/2016 22:57:RODNEY Hari) Cesareans: 0 (11/15/2016 22:57:RODNEY Hair) VBACs: 0 (11/15/2016 22:57:Jasmyne Scales [facility]) Ectopic: 0 (11/15/2016 22:57:Jasmyne Scales [facility]) Multiple Births: 0 (11/15/2016 22:57:Jasmyne Scales [facility]) Baby, Number in Womb: 1 (11/15/2016 22:57:Jasmyne Scales [facility]) CARE Primary Refrigeration Installer: [facility] (11/15/2016 22:57:Carolann Gonzalez RN) Month of 1st Visit: July (11/15/2016 22:57:Jasmyne Scales [facility]) Adequate Care: Yes (11/15/2016 22:57:Carolann Gonzalez RN) Prepregnancy Weight (lb): 148 (11/15/2016 22:57:Carolann Gonzalez RN) Prepregnancy Weight (kg): 67.3 (11/15/2016 22:57:QS system process) Height (in): 67 (03/14/2017 10:01:QS system process) Height (in): 67 (03/14/2017 09:14:QS system process) Height (in): 67 (03/13/2017 10:03:QS system process) Height (in): 67 (03/13/2017 07:21:QS system process) Height (in): 66 (11/16/2016 00:35:QS system process) ALLERGIES Medication Allergy: Yes (11/15/2016 22:57:Carolann Gonzalez RN) Medication Allergies: clavulanic acid (10/13/2016); clarithromycin (03/13/2017); amoxicillin (10/13/2016) (03/13/2017 07:21:QS system process) Medication Allergies: clavulanic acid (10/13/2016); amoxicillin (10/13/2016) (11/15/2016 22:55:QS system process) Latex Allergy: No Latex Allergies (11/15/2016 22:57:Carolann Gonzalez RN) COMMUNICATION Primary Language: Marshallese (11/15/2016 22:57:Carolann Gonzalez RN) Medical Tx Preferred Language: Marshallese (11/15/2016 22:57:Carolann Gonzalez RN) Communication Barrier(s): None (11/15/2016 22:57:RODNEY Hair) DEMOGRAPHICS Address: [address] [address] (11/15/2016 22:55:QS system process) Zipcode: [address] (11/15/2016 22:55:QS system process) Home (11/15/2016 22:55:QS system process) Work (11/15/2016 22:55:QS system process) SSN: [id number] (11/15/2016 22:55:QS system process) Next of Kin Name: VITA RIZZO (11/15/2016 22:55:QS system process) Next of Kin (11/15/2016 22:55:QS system process) Next of Kin Relationship: SPO (11/15/2016 22:55:QS system process) Date of : 1995 (11/15/2016 22:55:QS system process) Marital Status: (11/15/2016 22:55:QS system process) Sex: Female (11/15/2016 22:55:QS system process) 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 [id number] (11/15/2016 22:57:Carolann Gonzalez RN) Marijuana: No (11/15/2016 22:57:Carolann Gonzalez RN) Cocaine: No (11/15/2016 22:57:Carolann Gonzalez RN) Other Illicit Drugs: No (11/15/2016 22:57:Carolann Gonzalez RN) VACCINE HISTORY Influenza Vaccine: Yes (11/15/2016 22:57:Carolann Gonzalez RN) Influenza Date: 10-03-2016 (11/15/2016 22:57:RODNEY Hair) Pneumococcal Vaccine: No (11/15/2016 22:57:RODNEY Hair) Tetanus Vaccine: Yes (11/15/2016 22:57:RODENY aHir) Tetanus Date: 12-17-2016 (11/15/2016 22:57:RODNEY Hair) Tdap Vaccine: Yes (11/15/2016 22:57:RODNEY Hair) Tdap Date: 12-17-2016 (11/15/2016 22:57:RODNEY Hair) Hepatitis B Vaccine: Uncertain (11/15/2016 22:57:RODNEY Hair) Administrative Services Specialist: [facility] (11/15/2016 22:57:RODNEY Hair) Feeding Preference: Breast (11/15/2016 22:57:Carolann Gonzalez RN) Benefit of Breast Feed Discussed: Yes (11/15/2016 22:57:RODNEY Hair) Circumcision: N/A (11/15/2016 22:57:Carolann Gonzalez RN) Classes Attended: Yes (11/15/2016 22:57:RODNEY Hair) Tubal Ligation: No (11/15/2016 22:57:Carolann Gonzalez RN) Tubal Authorization Signed: N/A (11/15/2016 22:57:Carolann Gonzalez RN) Consent: N/A (11/15/2016 22:57:Carolann Gonzalez RN) Consent Signed: N/A (11/15/2016 22:57:Carolann Gonzalez RN) Pain Management Plans: Epidural (11/15/2016 22:57:RODNEY Hair) Plans for Labor and Delivery: None (11/15/2016 22:57:Carolann Gonzalez RN) Support Person: Demetrio Rizzo (11/15/2016 22:57:Carolann Gonzalez RN) Support Person Relationship: (11/15/2016 22:57:Carolann Gonzalez RN) Cultural/Spritual Practice: N/A (11/15/2016 22:57:Carolann Gonzalez RN) Spir/Cult Dietary Needs: N/A (11/15/2016 22:57:Carolann Gonzalez RN) LIVING SITUATION/DISCHARGE PLAN Living Arrangements: House (11/15/2016 22:57:Carolann Gonzalez RN) Adequate Access to:: Electric; Heat; Refrigeration; Plumbing/Running water; Phone; Transportation (11/15/2016 22:57:Carolann Gonzalez RN) WIC Program: No (11/15/2016 22:57:Carolann Gonzalez RN) Discharge Logistics Operations Director Person: Demetrio Rizzo (11/15/2016 22:57:Carolann Gonzalez RN) Person to Help after Discharge: Demetrio Rizzo (11/15/2016 22:57:Carolann Gonzalez RN) Currently Using Commun Resources: No (11/15/2016 22:57:Carolann Gonzalez RN) Outside Agency/Platemaker: No (11/15/2016 22:57:Carolann Gonzalez RN) Car Seat for Discharge: Yes (11/15/2016 22:57:RODNEY Hair) Adoption Requested: No (11/15/2016 22:57:Carolann Gonzalez RN) Pt Contact w/ Post : N/A (11/15/2016 22:57:Carolann Gonzalez RN) LABS Blood Type: A Positive (11/15/2016 22:57:Carolann Gonzalez RN) Antibody Screen: negative (11/15/2016 22:57:Carolann Gonzalez RN) Hemoglobin: 10.0 L (03/14/2017 07:32:QS system process) Hemoglobin: 11.5 L (03/13/2017 07:53:QS system process) Hemoglobin: 9.8 L (11/16/2016 07:12:QS system process) Hemoglobin: 11.3 L (11/16/2016 00:14:QS system process) Hematocrit: 29.3 L (03/14/2017 07:32:QS system process) Hematocrit: 33.1 L (03/13/2017 07:53:QS system process) Hematocrit: 28.1 L (11/16/2016 07:12:QS system process) Hematocrit: 32.3 L (11/16/2016 00:14:QS system process) MCV: 93 (03/14/2017 07:32:QS system process) MCV: 90 (03/13/2017 07:53:QS system process) MCV: 92 (11/16/2016 07:12:QS system process) MCV: 93 (11/16/2016 00:14:QS system process) Group Beta Strep: negative (11/15/2016 22:57:Yvette Aguillon RN) Gonorrhea: Negative (11/15/2016 22:57:Carolann Gonzalez RN) Chlamydia: Negative (11/15/2016 22:57:Carolann Gonzalez RN) RPR/VDRL: Nonreactive (11/15/2016 22:57:Carolann Gonzalez RN) HIV Exposure Test: Negative (11/15/2016 22:57:Yvette Aguillon RN) HIV Results: negative (11/15/2016 22:57:Yvette Aguillon RN) Hepatitis B: Negative (11/15/2016 22:57:Carolann Gonzalez RN) Rubella: Immune (11/15/2016 22:57:Carolann Gonzalez RN) OB/PREVIOUS HISTORY Previous Procedures: None (11/15/2016 22:57:Carolann Gonzalez RN) Current Procedures: Ultrasound (11/15/2016 22:57:Carolann Gonzalez RN) History of Previous : No (11/15/2016 22:57:Carolann Gonzalez RN) History of Gestational Diabetes: No (11/15/2016 22:57:Carolann Gonzalez RN) History of PIH: No (11/15/2016 22:57:Carolann Gonzalez RN) History of Incompetent Cervix: No (11/15/2016 22:57:Carolann Gonzalez RN) History of Placenta Previa/Abrup: No (11/15/2016 22:57:Carolann Gonzalez RN) History of Macrosomia: No (11/15/2016 22:57:Carolann Gonzalez RN) History of IUGR: No (11/15/2016 22:57:Carolann Gonzalez RN) History of Hemorrhage: No (11/15/2016 22:57:Carolann Gonzalez RN) History of Loss/Stillborn: No (11/15/2016 22:57:Carolann Gonzalez RN) History of : No (11/15/2016 22:57:Carolann Gonzalez RN) History of D (Rh) Sensitization: No (11/15/2016 22:57:Carolann Gonzalez RN) History Recurrent Loss/Stillborn: No (11/15/2016 22:57:Carolann Gonzalez RN) History Depression/PP Depression: No (11/15/2016 22:57:Carolann Gonzalez RN) History of Uterine Anomaly/DEMETRIUS: No (11/15/2016 22:57:Carolann Gonzalez RN) History of Infertility: No (11/15/2016 22:57:Carolann Gonzalez RN) History of ART Treatment: No (11/15/2016 22:57:Carolann Gonzalez RN) History of DEMETRIUS: No (11/15/2016 22:57:Carolann Gonzalez RN) Comments Obstetrical History: g1-7 weeks g2- current (11/15/2016 22:57:Carolann Gonzalez RN) MEDICAL HISTORY Med Hx Diabetes: No (11/15/2016 22:57:Carolann Gonzalez RN) Med Hx Hypertension: No (11/15/2016 22:57:Carolann Gonzalez RN) Med Hx Heart Disease: No (11/15/2016 22:57:Carolann Gonzalez RN) Med Hx Autoimmune Disorder: No (11/15/2016 22:57:Carolann Gonzalez RN) Med Hx Kidney Disease/UTI: No (11/15/2016 22:57:Carolann Gonzalez RN) Med Hx Neurologic/Epilepsy: No (11/15/2016 22:57:Carolann Gonzalez RN) Med Hx Psychiatric Disorders: No (11/15/2016 22:57:Carolann Gonzalez RN) Med Hx Hepatitis/Liver Disease: No (11/15/2016 22:57:Carolann Gonzalez RN) Med Hx Varicosities/Phlebitis: No (11/15/2016 22:57:Carolann Gonzalez RN) Med Hx Thyroid Dysfunction: No (11/15/2016 22:57:Carolann Gonzalez RN) Med Hx Trauma/Violence: No (11/15/2016 22:57:Carolann Gonzalez RN) Med Hx Blood Transfusion: No (11/15/2016 22:57:Carolann Gonzalez RN) Med Hx Pulmonary (Asthma,TB): No (11/15/2016 22:57:Carolann Gonzalez RN) Med Hx Breast: No (11/15/2016 22:57:Carolann Gonzalez RN) Med Hx PHYSICAL THERAPY INSTRUCTOR Surgery: No (11/15/2016 22:57:Carolann Gonzalez RN) Med Hx Hospitalization/Surgery: Yes (11/15/2016 22:57:Carolann Gonzalez RN) Med Hx Anesthetic Complications: No (11/15/2016 22:57:Carolann Gonzalez RN) Med Hx Abnormal Pap Smear: No (11/15/2016 22:57:Carolann Gonzalez RN) Other Medical Diseases: No (11/15/2016 22:57:Carolann Gonzalez RN) Med Hx Significant Family Hx: No (11/15/2016 22:57:Carolann Gonzalez RN) Details of Med/Surg Hx: tonsilectomy, adenoidectomy, and removal of lump from breast bone (11/15/2016 22:57:Carolann Gonzalez RN) INFECTIOUS HISTORY Inf Hx Gonorrhea: No (11/15/2016 22:57:Carolann Gonzalez RN) Inf Hx Chlamydia: No (11/15/2016 22:57:Carolann Gonzalez RN) Inf Hx Syphilis: No (11/15/2016 22:57:Carolann Gonzalez RN) Inf Hx HIV/AIDS: No (11/15/2016 22:57:Carolann Gonzalez RN) Inf Hx Human Papilloma Virus: No (11/15/2016 22:57:Carolann Gonzalez RN) Inf Hx Pt/Partner Genital Herpes: No (11/15/2016 22:57:Carolann Gonzalez RN) Inf Hx Tuberculosis/Exposure: No (11/15/2016 22:57:Carolann Gonzalez RN) Inf Hx Hepatitis B,C: No (11/15/2016 22:57:Carolann Gonzalez RN) Inf Hx Rash or Viral Illness: No (11/15/2016 22:57:Carolann Gonzalez RN) GENETIC HISTORY Gen Hx Age >=35 at BABAK: No (11/15/2016 22:57:Carolann Gonzalez RN) Gen Hx Thalassemia: No (11/15/2016 22:57:Carolann Gonzalez RN) Gen Hx Congenital Heart Defect: No (11/15/2016 22:57:Carolann Gonzalez RN) Gen Hx Neural Tube Defect: No (11/15/2016 22:57:Carolann Gonzalez RN) Gen Hx Down's Syndrome: No (11/15/2016 22:57:Carolann Gonzalez RN) Gen Hx Denton-Sachs: No (11/15/2016 22:57:Carolann Gonzalez RN) Gen Hx Patricia: No (11/15/2016 22:57:Carolann Gonzalez RN) Gen Hx Familial Dysautonomia: No (11/15/2016 22:57:Carolann Gonzalez RN) Gen Hx Sickle Cell Disease/Trait: No (11/15/2016 22:57:Carolann Gonzalez RN) Gen Hx Hemophilia/Blood Disorder: No (11/15/2016 22:57:Carolann Gonzalez RN) Gen Hx Muscular Dystrophy: No (11/15/2016 22:57:Carolann Gonzalez RN) Gen Hx Cystic Fibrosis: No (11/15/2016 22:57:Carolann Gonzalez RN) Gen Hx Huntingtons Chorea: No (11/15/2016 22:57:Carolann Gonzalez RN) Gen Hx Mental Retardation/Autism: No (11/15/2016 22:57:Carolann Gonzalez RN) Gen Hx Tested for Fragile X: No (11/15/2016 22:57:Carolann Gonzalez RN) Gen Hx Other Inher/Chromosomal: No (11/15/2016 22:57:Carolann Gonzalez RN) Gen Hx Maternal Metabolic DO: No (11/15/2016 22:57:Carolann Gonzalez RN) Gen Hx Pt Father or FOB Defect: No (11/15/2016 22:57:Carolann Gonzalez RN) Gen Hx Other Genetic History: No (11/15/2016 22:57:Carolann Gonzalez RN) Gen Hx Drugs/Meds since LMP: No (11/15/2016 22:57:Carolann Gonzalez RN)
--- NOTE | 2017-03-14 16:46 | L&D Discharge Summary ---
OB Discharge Summary Datetime Report Generated by CPN: 03/14/2017 16:45 DISCHARGE DIAGNOSIS Diagnosis/Symptoms: Other Diagnoses/Symptoms Other: Kidney stone Gestation: 40.0 Number of Babies in Womb: 1 Parity: 0 DIET/ACTIVITY/RESTRICTIONS Diet: Regular Activity: Normal Activity TEACHING/INSTRUCTIONS/REFERRALS Instructions Given To: Patient Instructions Understood: Patient Verbalized Understanding; Support Person Verbalized Understanding Referrals: None Educational Materials- Other: PO hydration, medication administration DISCHARGE INFORMATION Discharged AMA: No Discharged To: Home Discharge Provider Name: Dr. Camacho Accompanied By: spouse Discharge Method: Wheelchair Condition: Stable FOLLOW UP INFORMATION Follow Up With: [facility] Follow Up On: As Scheduled
--- NOTE | 2017-03-14 16:46 | L&D General Admission ---
General Admit Datetime Report Generated by CPN: 03/14/2017 16:45 INFORMATION Patient Age: 21 (11/15/2016 22:55:QS system process) EDC: 03/13/2017 00:00 (11/15/2016 22:57:Carolann Gonzalez RN) : 2 (11/15/2016 22:57:Carolann Gonzalez RN) Para: 0 (11/15/2016 22:57:Carolann Gonzalez RN) Term: 0 (11/15/2016 22:57:RODNEY Hair) : 0 (11/15/2016 22:57:RODNEY Hair) Spontaneous Abortions: 0 (11/15/2016 22:57:RODNEY Hair) Induced Abortions: 1 (11/15/2016 22:57:RODNEY Hair) Livin (11/15/2016 22:57:RODNEY Hair) Cesareans: 0 (11/15/2016 22:57:RODNEY Hair) VBACs: 0 (11/15/2016 22:57:Jasmyne Scales [facility]) Ectopic: 0 (11/15/2016 22:57:Jasmyne Scales [facility]) Multiple Births: 0 (11/15/2016 22:57:Jasmyne Scales [facility]) Baby, Number in Womb: 1 (11/15/2016 22:57:Jasmyne Scales [facility]) CARE Primary Glass Decorator: [facility] (11/15/2016 22:57:Carolann Gonzalez RN) Month of 1st Visit: July (11/15/2016 22:57:Jasmyne Scales [facility]) Adequate Care: Yes (11/15/2016 22:57:Carolann Gonzalez RN) Prepregnancy Weight (lb): 148 (11/15/2016 22:57:Carolann Gonzalez RN) Prepregnancy Weight (kg): 67.3 (11/15/2016 22:57:QS system process) Height (in): 67 (03/14/2017 10:01:QS system process) Height (in): 67 (03/14/2017 09:14:QS system process) Height (in): 67 (03/13/2017 10:03:QS system process) Height (in): 67 (03/13/2017 07:21:QS system process) Height (in): 66 (11/16/2016 00:35:QS system process) ALLERGIES Medication Allergy: Yes (11/15/2016 22:57:Carolann Gonzalez RN) Medication Allergies: clavulanic acid (10/13/2016); clarithromycin (03/13/2017); amoxicillin (10/13/2016) (03/13/2017 07:21:QS system process) Medication Allergies: clavulanic acid (10/13/2016); amoxicillin (10/13/2016) (11/15/2016 22:55:QS system process) Latex Allergy: No Latex Allergies (11/15/2016 22:57:Carolann Gonzalez RN) COMMUNICATION Primary Language: Afghan (11/15/2016 22:57:Carolann Gonzalez RN) Medical Tx Preferred Language: Afghan (11/15/2016 22:57:Carolann Gonzalez RN) Communication Barrier(s): None (11/15/2016 22:57:RODNEY Hair) DEMOGRAPHICS Address: [address] [address] (11/15/2016 22:55:QS system process) Zipcode: [address] (11/15/2016 22:55:QS system process) Home (11/15/2016 22:55:QS system process) Work (11/15/2016 22:55:QS system process) SSN: [id number] (11/15/2016 22:55:QS system process) Next of Kin Name: VITA RIZZO (11/15/2016 22:55:QS system process) Next of Kin (11/15/2016 22:55:QS system process) Next of Kin Relationship: SPO (11/15/2016 22:55:QS system process) Date of : 1995 (11/15/2016 22:55:QS system process) Marital Status: (11/15/2016 22:55:QS system process) Sex: Female (11/15/2016 22:55:QS system process) 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 [id number] (11/15/2016 22:57:Carolann Gonzalez RN) Marijuana: No (11/15/2016 22:57:Carolann Gonzalez RN) Cocaine: No (11/15/2016 22:57:Carolann Gonzalez RN) Other Illicit Drugs: No (11/15/2016 22:57:Carolann Gonzalez RN) VACCINE HISTORY Influenza Vaccine: Yes (11/15/2016 22:57:Carolann Gonzalez RN) Influenza Date: 10-03-2016 (11/15/2016 22:57:RODNEY Hair) Pneumococcal Vaccine: No (11/15/2016 22:57:RODNEY Hair) Tetanus Vaccine: Yes (11/15/2016 22:57:RODNEY Hair) Tetanus Date: 12-17-2016 (11/15/2016 22:57:RODNEY Hair) Tdap Vaccine: Yes (11/15/2016 22:57:RODNEY Hair) Tdap Date: 12-17-2016 (11/15/2016 22:57:RODNEY Hair) Hepatitis B Vaccine: Uncertain (11/15/2016 22:57:RODNEY Hair) Supervisor Finishing Room: [facility] (11/15/2016 22:57:RODNEY Hair) Feeding Preference: Breast (11/15/2016 22:57:Carolann Gonzalez RN) Benefit of Breast Feed Discussed: Yes (11/15/2016 22:57:RODNEY Hair) Circumcision: N/A (11/15/2016 22:57:Carolann Gonzalez RN) Classes Attended: Yes (11/15/2016 22:57:RODNEY Hair) Tubal Ligation: No (11/15/2016 22:57:Carolann Gonzalez RN) Tubal Authorization Signed: N/A (11/15/2016 22:57:Carolann Gonzalez RN) Consent: N/A (11/15/2016 22:57:Carolann Gonzalez RN) Consent Signed: N/A (11/15/2016 22:57:Carolann Gonzalez RN) Pain Management Plans: Epidural (11/15/2016 22:57:RODNEY Hair) Plans for Labor and Delivery: None (11/15/2016 22:57:Carolann Gonzalez RN) Support Person: Demetrio Rizzo (11/15/2016 22:57:Carolann Gonzalez RN) Support Person Relationship: (11/15/2016 22:57:Carolann Gonzalez RN) Cultural/Spritual Practice: N/A (11/15/2016 22:57:Carolann Gonzalez RN) Spir/Cult Dietary Needs: N/A (11/15/2016 22:57:Carolann Gonzalez RN) LIVING SITUATION/DISCHARGE PLAN Living Arrangements: House (11/15/2016 22:57:Carolann Gonzalez RN) Adequate Access to:: Electric; Heat; Refrigeration; Plumbing/Running water; Phone; Transportation (11/15/2016 22:57:Carolann Gonzalez RN) WIC Program: No (11/15/2016 22:57:Carolann Gonzalez RN) Discharge Pet Resort Concierge Person: Demetrio Rizzo (11/15/2016 22:57:Carolann Gonzalez RN) Person to Help after Discharge: Demetrio Rizzo (11/15/2016 22:57:Carolann Gonzalez RN) Currently Using Commun Resources: No (11/15/2016 22:57:Carolann Gonzalez RN) Outside Agency/Real Estate Broker Associate: No (11/15/2016 22:57:Carolann Gonzalez RN) Car Seat for Discharge: Yes (11/15/2016 22:57:RODNEY Hair) Adoption Requested: No (11/15/2016 22:57:Carolann Gonzalez RN) Pt Contact w/ Post : N/A (11/15/2016 22:57:Carolann Gonzalez RN) LABS Blood Type: A Positive (11/15/2016 22:57:Carolann Gonzalez RN) Antibody Screen: negative (11/15/2016 22:57:Carolann Gonzalez RN) Hemoglobin: 10.0 L (03/14/2017 07:32:QS system process) Hemoglobin: 11.5 L (03/13/2017 07:53:QS system process) Hemoglobin: 9.8 L (11/16/2016 07:12:QS system process) Hemoglobin: 11.3 L (11/16/2016 00:14:QS system process) Hematocrit: 29.3 L (03/14/2017 07:32:QS system process) Hematocrit: 33.1 L (03/13/2017 07:53:QS system process) Hematocrit: 28.1 L (11/16/2016 07:12:QS system process) Hematocrit: 32.3 L (11/16/2016 00:14:QS system process) MCV: 93 (03/14/2017 07:32:QS system process) MCV: 90 (03/13/2017 07:53:QS system process) MCV: 92 (11/16/2016 07:12:QS system process) MCV: 93 (11/16/2016 00:14:QS system process) Group Beta Strep: negative (11/15/2016 22:57:Yvette Aguillon RN) Gonorrhea: Negative (11/15/2016 22:57:Carolann Gonzalez RN) Chlamydia: Negative (11/15/2016 22:57:Carolann Gonzalez RN) RPR/VDRL: Nonreactive (11/15/2016 22:57:Carolann Gonzalez RN) HIV Exposure Test: Negative (11/15/2016 22:57:Yvette Aguillon RN) HIV Results: negative (11/15/2016 22:57:Yvette Aguillon RN) Hepatitis B: Negative (11/15/2016 22:57:Carolann Gonzalez RN) Rubella: Immune (11/15/2016 22:57:Carolann Gonzalez RN) OB/PREVIOUS HISTORY Previous Procedures: None (11/15/2016 22:57:Carolann Gonzalez RN) Current Procedures: Ultrasound (11/15/2016 22:57:Carolann Gonzalez RN) History of Previous : No (11/15/2016 22:57:Carolann Gonzalez RN) History of Gestational Diabetes: No (11/15/2016 22:57:Carolann Gonzalez RN) History of PIH: No (11/15/2016 22:57:Carolann Gonzalez RN) History of Incompetent Cervix: No (11/15/2016 22:57:Carolann Gonzalez RN) History of Placenta Previa/Abrup: No (11/15/2016 22:57:Carolann Gonzalez RN) History of Macrosomia: No (11/15/2016 22:57:Carolann Gonzalez RN) History of IUGR: No (11/15/2016 22:57:Carolann Gonzalez RN) History of Hemorrhage: No (11/15/2016 22:57:Carolann Gonzalez RN) History of Loss/Stillborn: No (11/15/2016 22:57:Carolann Gonzalez RN) History of : No (11/15/2016 22:57:Carolann Gonzalez RN) History of D (Rh) Sensitization: No (11/15/2016 22:57:Carolann Gonzalez RN) History Recurrent Loss/Stillborn: No (11/15/2016 22:57:Carolann Gonzalez RN) History Depression/PP Depression: No (11/15/2016 22:57:Carolann Gonzalez RN) History of Uterine Anomaly/DEMETRIUS: No (11/15/2016 22:57:Carolann Gonzalez RN) History of Infertility: No (11/15/2016 22:57:Carolann Gonzalez RN) History of ART Treatment: No (11/15/2016 22:57:Carolann Gonzalez RN) History of DEMETRIUS: No (11/15/2016 22:57:Carolann Gonzalez RN) Comments Obstetrical History: g1-7 weeks g2- current (11/15/2016 22:57:Carolann Gonzalez RN) MEDICAL HISTORY Med Hx Diabetes: No (11/15/2016 22:57:Carolann Gonzalez RN) Med Hx Hypertension: No (11/15/2016 22:57:Carolann Gonzalez RN) Med Hx Heart Disease: No (11/15/2016 22:57:Carolann Gonzalez RN) Med Hx Autoimmune Disorder: No (11/15/2016 22:57:Carolann Gonzalez RN) Med Hx Kidney Disease/UTI: No (11/15/2016 22:57:Carolann Gonzalez RN) Med Hx Neurologic/Epilepsy: No (11/15/2016 22:57:Carolann Gonzalez RN) Med Hx Psychiatric Disorders: No (11/15/2016 22:57:Carolann Gonzalez RN) Med Hx Hepatitis/Liver Disease: No (11/15/2016 22:57:Carolann Gonzalez RN) Med Hx Varicosities/Phlebitis: No (11/15/2016 22:57:Carolann Gonzalez RN) Med Hx Thyroid Dysfunction: No (11/15/2016 22:57:Carolann Gonzalez RN) Med Hx Trauma/Violence: No (11/15/2016 22:57:Carolann Gonzalez RN) Med Hx Blood Transfusion: No (11/15/2016 22:57:Carolann Gonzalez RN) Med Hx Pulmonary (Asthma,TB): No (11/15/2016 22:57:Carolann Gonzalez RN) Med Hx Breast: No (11/15/2016 22:57:Carolann Gonzalez RN) Med Hx SEXUAL ABUSE COUNSELLOR Surgery: No (11/15/2016 22:57:Carolann Gonzalez RN) Med Hx Hospitalization/Surgery: Yes (11/15/2016 22:57:Carolann Gonzalez RN) Med Hx Anesthetic Complications: No (11/15/2016 22:57:Carolann Gonzalez RN) Med Hx Abnormal Pap Smear: No (11/15/2016 22:57:Carolann Gonzalez RN) Other Medical Diseases: No (11/15/2016 22:57:Carolann Gonzalez RN) Med Hx Significant Family Hx: No (11/15/2016 22:57:Carolann Gonzalez RN) Details of Med/Surg Hx: tonsilectomy, adenoidectomy, and removal of lump from breast bone (11/15/2016 22:57:Carolann Gonzalez RN) INFECTIOUS HISTORY Inf Hx Gonorrhea: No (11/15/2016 22:57:Carolann Gonzalez RN) Inf Hx Chlamydia: No (11/15/2016 22:57:Carolann Gonzalez RN) Inf Hx Syphilis: No (11/15/2016 22:57:Carolann Gonzalez RN) Inf Hx HIV/AIDS: No (11/15/2016 22:57:Carolann Gonzalez RN) Inf Hx Human Papilloma Virus: No (11/15/2016 22:57:Carolann Gonzalez RN) Inf Hx Pt/Partner Genital Herpes: No (11/15/2016 22:57:Carolann Gonzalez RN) Inf Hx Tuberculosis/Exposure: No (11/15/2016 22:57:Carolann Gonzalez RN) Inf Hx Hepatitis B,C: No (11/15/2016 22:57:Carolann Gonzalez RN) Inf Hx Rash or Viral Illness: No (11/15/2016 22:57:Carolann Gonzalez RN) GENETIC HISTORY Gen Hx Age >=35 at BABAK: No (11/15/2016 22:57:Carolann Gonzalez RN) Gen Hx Thalassemia: No (11/15/2016 22:57:Carolann Gonzalez RN) Gen Hx Congenital Heart Defect: No (11/15/2016 22:57:Carolann Gonzalez RN) Gen Hx Neural Tube Defect: No (11/15/2016 22:57:Carolann Gonzalez RN) Gen Hx Down's Syndrome: No (11/15/2016 22:57:Carolann Gonzalez RN) Gen Hx Denton-Sachs: No (11/15/2016 22:57:Carolann Gonzalez RN) Gen Hx Patricia: No (11/15/2016 22:57:Carolann Gonzalez RN) Gen Hx Familial Dysautonomia: No (11/15/2016 22:57:Carolann Gonzalez RN) Gen Hx Sickle Cell Disease/Trait: No (11/15/2016 22:57:Carolann Gonzalez RN) Gen Hx Hemophilia/Blood Disorder: No (11/15/2016 22:57:Carolann Gonzalez RN) Gen Hx Muscular Dystrophy: No (11/15/2016 22:57:Carolann Gonzalez RN) Gen Hx Cystic Fibrosis: No (11/15/2016 22:57:Carolann Gonzalez RN) Gen Hx Huntingtons Chorea: No (11/15/2016 22:57:Carolann Gonzalez RN) Gen Hx Mental Retardation/Autism: No (11/15/2016 22:57:Carolann Gonzalez RN) Gen Hx Tested for Fragile X: No (11/15/2016 22:57:Carolann Gonzalez RN) Gen Hx Other Inher/Chromosomal: No (11/15/2016 22:57:Carolann Gonzalez RN) Gen Hx Maternal Metabolic DO: No (11/15/2016 22:57:Carolann Gonzalez RN) Gen Hx Pt Father or FOB Defect: No (11/15/2016 22:57:Carolann Gonzalez RN) Gen Hx Other Genetic History: No (11/15/2016 22:57:Carolann Gonzalez RN) Gen Hx Drugs/Meds since LMP: No (11/15/2016 22:57:Carolann Gonzalez RN)
--- NOTE | 2017-03-14 16:46 | L&D Flow Sheet ---
LD Flowsheet Datetime Report Generated by CPN: 03/14/2017 16:45 Datetime: 03/14/2017 08:50 NBP Sys/Marry/Mean (mmHg): 116 (QS system process) : 71 (QS system process) : 88 (QS system process) Pulse: 131 (QS system process) Respirations: 16 (Jasmyne Camp, RNC) Temperature (F): 97.7 (Jasmyne Camp, RNC) Temperature (C): 36.5 (QS system process) Pain Scale: 1 (Jasmyne Camp, RNC) Pain Presence: Intermittent (Jasmyne Camp, RNC) Pain Type: Cramping (Jasmyne Camp, RNC) Pain Location: Abdomen (Jasmyne Camp, RNC) Pain Relief Measures: Comfort Measures (Jasmyne Camp, RNC) Datetime: 03/14/2017 07:20 Stage of : Recovery ([facility], [facility]) Pain Scale: 1 ([facility]) Pain Presence: Intermittent ([facility]) Pain Type: Cramping ([facility]) Pain Location: Abdomen ([facility]) Pain Relief Measures: Pain Medication Given; Comfort Measures (Annotations: states a reduction in cramping with po Motrin) ([facility]) Pain Assessment Comments: resting comfortably with no complaints ([facility]) Datetime: 03/14/2017 06:00 Pain Scale: 1 (Dyan Danielson RN)
--- NOTE | 2017-03-14 22:46 | L&D Discharge Summary ---
OB Discharge Summary Datetime Report Generated by CPN: 03/14/2017 22:45 DISCHARGE DIAGNOSIS Diagnosis/Symptoms: Other Diagnoses/Symptoms Other: Kidney stone Gestation: 40.0 Number of Babies in Womb: 1 Parity: 0 DIET/ACTIVITY/RESTRICTIONS Diet: Regular Activity: Normal Activity TEACHING/INSTRUCTIONS/REFERRALS Instructions Given To: Patient Instructions Understood: Patient Verbalized Understanding; Support Person Verbalized Understanding Referrals: None Educational Materials- Other: PO hydration, medication administration DISCHARGE INFORMATION Discharged AMA: No Discharged To: Home Discharge Provider Name: Dr. Camacho Accompanied By: spouse Discharge Method: Wheelchair Condition: Stable FOLLOW UP INFORMATION Follow Up With: [facility] Follow Up On: As Scheduled
--- NOTE | 2017-03-14 22:46 | L&D Current Admission ---
Current Admit Datetime Report Generated by CPN: 03/14/2017 22:45 ADMISSION INFORMATION Current Admit Date/Time: 03/13/2017 07:25 (03/13/2017 07:45:RODNEY Hair) Current Admit Date/Time: 03/13/2017 07:56 (11/15/2016 23:22:RODNEY Hair) Reason for Admission: Induction of Labor (03/13/2017 07:45:RODNEY Hair) Reason for Admission: Induction of Labor (11/15/2016 23:22:RODNEY Hair) Chief Complaint: Scheduled Induction of Labor (03/13/2017 07:45:RODNEY Hair) Chief Complaint: Scheduled Induction of Labor (11/15/2016 23:22:RODNEY Hair) Medications During : Vitamin; Hydroxyzine (Vistaril) (03/13/2017 07:45:RODNEY Hair) Medications During : Vitamin (11/15/2016 23:22:RODNEY Hair) Meds During -Oth: macrobid and vitamins (03/13/2017 07:45:RODNEY Hair) Meds During -Oth: macrobid 100 mg QHS prophylactic for h/o kidney stones (11/15/2016 23:22:RODNEY Hair) EGA per Dates: 40.0 (03/13/2017 07:45:MICHAEL system process) EGA per Dates: 40.0 (11/15/2016 23:22:QS system process) Method of Arrival: Ambulatory (03/13/2017 07:45:RODNEY Hair) Method of Arrival: Ambulatory (11/15/2016 23:22:RODNEY Hair) Admitted From: Home (03/13/2017 07:45:RODNEY Hair) Admitted From: Home (11/15/2016 23:22:RODNEY Hair) Reason for Induction: Maternal Diabetes; Other (03/13/2017 07:45:RODNEY Hair) Reason for Induction: Maternal Diabetes (11/15/2016 23:22:RODNEY Hair) Reason for Induction- Other: GDM diet controlled (03/13/2017 07:45:RODNEY Hair) Reason for Induction- Other: GDM diet controlled (11/15/2016 23:22:RODNEY Hair) Records Available: Yes (03/13/2017 07:45:RODNEY Hair) Records Available: Yes (11/15/2016 23:22:RODNEY Hair) General Admission Information: Reviewed; Updated; Confirmed (03/13/2017 07:45:RODNEY Hair) General Admission Information: Reviewed; Updated; Confirmed (11/15/2016 23:22:RODNEY Hair) General Admission Reviewed By: Jasmyne STEVENS (03/13/2017 07:45:RODNEY Hair) General Admission Reviewed By: Jasmyne STEVENS (11/15/2016 23:22:RODNEY Hair) BELONGINGS/ADVANCED DIRECTIVES Valuables/Personal Effects: Purse/Wallet; Cell Phone (03/13/2017 07:45:RODNEY Hair) Valuables/Personal Effects: Purse/Wallet; Cell Phone; Jewelry; Camera (11/15/2016 23:22:RODNEY Hair) Other Belongings: see [facility] Valuables consent (11/15/2016 23:22:RODNEY Hair) Disposition of Belongings: Kept with Patient (03/13/2017 07:45:RODNEY Hair) Disposition of Belongings: Kept with Patient (11/15/2016 23:22:RODNEY Hair) Advance Direct for Healthcare: No, and Wants No Information (03/13/2017 07:45:RODNEY Hair) Advance Direct for Healthcare: No, and Wants No Information (11/15/2016 23:22:RODNEY Hair) Durable Power of Stockroom Inventory Clerk: No (03/13/2017 07:45:RODNEY Hair) Durable Power of Stockroom Inventory Clerk: No (11/15/2016 23:22:RODNEY Hair) Living Will: Yes (03/13/2017 07:45:RODNEY Hair) Living Will: Yes (11/15/2016 23:22:RODNEY Hair) Organ Donor: Yes (03/13/2017 07:45:RODNEY Hair) Organ Donor: Yes (11/15/2016 23:22:RODNEY Hair) Pt Rights Information Given: Yes (03/13/2017 07:45:RODNEY Hair) Pt Rights Information Given: Yes (11/15/2016 23:22:RODNEY Hair) Pt Understands Pt Rights: Yes (03/13/2017 07:45:RODNEY Hair) Pt Understands Pt Rights: Yes (11/15/2016 23:22:RODNEY Hair) Patient Rights Comments: requests notary (03/13/2017 07:45:RODNEY Hair) LEARNING ASSESSMENT Knowledge Level: Understands L_D Process; Understands Care Activities; Had Pre-Hospital Education (03/13/2017 07:45:RODNEY Hair) Knowledge Level: Understands L_D Process; Understands Care Activities; Had Pre-Hospital Education; Understands Diagnosis (11/15/2016 23:22:RODNEY Hair) Barriers to Learning: None (03/13/2017 07:45:RODNEY Hair) Barriers to Learning: None (11/15/2016 23:22:RODNEY Hair) Learning Readiness: Motivated (03/13/2017 07:45:RODNEY Hair) Learning Readiness: Motivated (11/15/2016 23:22:RODNEY Hair) Learns Best By: 1 to 1 Instruction; Demonstration (03/13/2017 07:45:RODNEY Hair) Learns Best By: 1 to 1 Instruction; Demonstration (11/15/2016 23:22:RODNEY Hair) Learning Needs: Labor and Delivery Process; Pain Management; Symptoms to Report; Treatment Plan; Medication; Diagnosis; Nutrition; Equipment; Care; Community Resources; Other (03/13/2017 07:45:RODNEY Hair) Learning Needs: Labor and Delivery Process; Pain Management; Symptoms to Report; Treatment Plan; Medication; Diagnosis; Nutrition; Equipment; Care; Community Resources; Other (11/15/2016 23:22:RODNEY Hair) Learning Assessment Comments: (03/13/2017 07:45:RODNEY Hair) Learning Assessment Comments: (11/15/2016 23:22:RODNEY Hair) DOMESTIC VIOLANCE SCREENING Dom Viol Threatened/Hurt: No (03/13/2017 07:45:RODNEY Hair) Dom Viol Threatened/Hurt: No (11/15/2016 23:22:Jasmyne Scales Mj) Hx of Abuse/Neglect past 2yrs: No (03/13/2017 07:45:RODNEY Hair) Hx of Abuse/Neglect past 2yrs: No (11/15/2016 23:22:Jasmyne Scales Mj) Feel Unsafe Going Home: No (03/13/2017 07:45:RODNEY Hair) Feel Unsafe Going Home: No (11/15/2016 23:22:Jasmyne Scales Mj) Addt'l Observ Indicating Abuse: No (03/13/2017 07:45:RODNEY Hair) Addt'l Observ Indicating Abuse: No (11/15/2016 23:22:RODNEY Hair) Reason Unable to Complete Screen: N/A, Screen Completed (03/13/2017 07:45:RODNEY Hair) Reason Unable to Complete Screen: N/A, Screen Completed (11/15/2016 23:22:RODNEY Hair) Considered Personal Harm/Suicide: No (03/13/2017 07:45:Jasmyne Scales Mj) Considered Personal Harm/Suicide: No (11/15/2016 23:22:Jasmyne Scales Mj) NUTRITIONAL/FUNCTIONAL SCREENING Problem with Appetite >5 Days: No (03/13/2017 07:45:RODNEY Hair) Problem with Appetite >5 Days: No (11/15/2016 23:22:RODNEY Hair) Chew/Swallow Difficulties: No (03/13/2017 07:45:RODNEY Hair) Chew/Swallow Difficulties: No (11/15/2016 23:22:RODNEY Hair) Inappropriate Wt Gain/Loss: No (03/13/2017 07:45:RODNEY Hair) Inappropriate Wt Gain/Loss: No (11/15/2016 23:22:RODNEY Hair) Presence Skin Breakdown/Ulcer: No (03/13/2017 07:45:RODNEY Hair) Presence Skin Breakdown/Ulcer: No (11/15/2016 23:22:RODNEY Hair) Special Diet: No (03/13/2017 07:45:RODNEY Hair) Special Diet: No (11/15/2016 23:22:RODNEY Hair) Specify Diet: lactose intolerant (03/13/2017 07:45:RODNEY Hair) Specify Diet: lactose intolerant (11/15/2016 23:22:RODNEY Hair) Pt Requests Control Center Operator Visit: No (03/13/2017 07:45:RODNEY Hair) Pt Requests Control Center Operator Visit: No (11/15/2016 23:22:RODNEY Hair) Hx of Any of the Following?: N/A (03/13/2017 07:45:RODNEY Hair) Hx of Any of the Following?: N/A (11/15/2016 23:22:RODNEY Hair) New Diagnosis of: N/A (03/13/2017 07:45:RODNEY Hair) New Diagnosis of: N/A (11/15/2016 23:22:RODNEY Hair) Requires Assist w/Ambulation: No (03/13/2017 07:45:RODNEY Hair) Requires Assist w/Ambulation: No (11/15/2016 23:22:RODNEY Hair) Uses Assist Device to Ambulate: No (03/13/2017 07:45:RODNEY Hair) Uses Assist Device to Ambulate: No (11/15/2016 23:22:RODNEY Hair) Pt Requires Help w/ADL's: No (03/13/2017 07:45:RODNEY Hair) Pt Requires Help w/ADL's: No (11/15/2016 23:22:RODNEY Hair)
--- NOTE | 2017-03-14 22:46 | L&D General Admission ---
General Admit Datetime Report Generated by CPN: 03/14/2017 22:45 INFORMATION Patient Age: 21 (11/15/2016 22:55:QS system process) EDC: 03/13/2017 00:00 (11/15/2016 22:57:Carolann Gonzalez RN) : 2 (11/15/2016 22:57:Carolann Gonzalez RN) Para: 0 (11/15/2016 22:57:Carolann Gonzalez RN) Term: 0 (11/15/2016 22:57:RODNEY Hair) : 0 (11/15/2016 22:57:RODNEY Hair) Spontaneous Abortions: 0 (11/15/2016 22:57:RODNEY Hair) Induced Abortions: 1 (11/15/2016 22:57:RODNEY Hair) Livin (11/15/2016 22:57:RODNEY Hair) Cesareans: 0 (11/15/2016 22:57:RODNEY Hair) VBACs: 0 (11/15/2016 22:57:Jasmyne Scales [facility]) Ectopic: 0 (11/15/2016 22:57:Jasmyne Scales [facility]) Multiple Births: 0 (11/15/2016 22:57:Jasmyne Scales [facility]) Baby, Number in Womb: 1 (11/15/2016 22:57:Jasmyne Scales [facility]) CARE Primary Special Loan Officer: [facility] (11/15/2016 22:57:Carolann Gonzalez RN) Month of 1st Visit: July (11/15/2016 22:57:Jasmyne Scales [facility]) Adequate Care: Yes (11/15/2016 22:57:Carolann Gonzalez RN) Prepregnancy Weight (lb): 148 (11/15/2016 22:57:Carolann Gonzalez RN) Prepregnancy Weight (kg): 67.3 (11/15/2016 22:57:QS system process) Height (in): 67 (03/14/2017 10:01:QS system process) Height (in): 67 (03/14/2017 09:14:QS system process) Height (in): 67 (03/13/2017 10:03:QS system process) Height (in): 67 (03/13/2017 07:21:QS system process) Height (in): 66 (11/16/2016 00:35:QS system process) ALLERGIES Medication Allergy: Yes (11/15/2016 22:57:Carolann Gonzalez RN) Medication Allergies: clavulanic acid (10/13/2016); clarithromycin (03/13/2017); amoxicillin (10/13/2016) (03/13/2017 07:21:QS system process) Medication Allergies: clavulanic acid (10/13/2016); amoxicillin (10/13/2016) (11/15/2016 22:55:QS system process) Latex Allergy: No Latex Allergies (11/15/2016 22:57:Carolann Gonzalez RN) COMMUNICATION Primary Language: South Korean (11/15/2016 22:57:Carolann Gonzalez RN) Medical Tx Preferred Language: South Korean (11/15/2016 22:57:Carolann Gonzalez RN) Communication Barrier(s): None (11/15/2016 22:57:RODNEY Hair) DEMOGRAPHICS Address: [address] [address] (11/15/2016 22:55:QS system process) Zipcode: [address] (11/15/2016 22:55:QS system process) Home (11/15/2016 22:55:QS system process) Work (11/15/2016 22:55:QS system process) SSN: [id number] (11/15/2016 22:55:QS system process) Next of Kin Name: VITA RIZZO (11/15/2016 22:55:QS system process) Next of Kin (11/15/2016 22:55:QS system process) Next of Kin Relationship: SPO (11/15/2016 22:55:QS system process) Date of : 1995 (11/15/2016 22:55:QS system process) Marital Status: (11/15/2016 22:55:QS system process) Sex: Female (11/15/2016 22:55:QS system process) 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 [id number] (11/15/2016 22:57:Carolann Gonzalez RN) Marijuana: No (11/15/2016 22:57:Carolann Gonzalez RN) Cocaine: No (11/15/2016 22:57:Carolann Gonzalez RN) Other Illicit Drugs: No (11/15/2016 22:57:Carolann Gonzalez RN) VACCINE HISTORY Influenza Vaccine: Yes (11/15/2016 22:57:Carolann Gonzalez RN) Influenza Date: 10-03-2016 (11/15/2016 22:57:RODNEY Hair) Pneumococcal Vaccine: No (11/15/2016 22:57:RODNEY Hair) Tetanus Vaccine: Yes (11/15/2016 22:57:RODNEY Hair) Tetanus Date: 12-17-2016 (11/15/2016 22:57:RODNEY Hair) Tdap Vaccine: Yes (11/15/2016 22:57:RODNEY Hair) Tdap Date: 12-17-2016 (11/15/2016 22:57:RODNEY Hair) Hepatitis B Vaccine: Uncertain (11/15/2016 22:57:RODNEY Hair) Stunner Animal: [facility] (11/15/2016 22:57:RODNEY Hair) Feeding Preference: Breast (11/15/2016 22:57:Carolann Gonzalez RN) Benefit of Breast Feed Discussed: Yes (11/15/2016 22:57:RODNEY Hair) Circumcision: N/A (11/15/2016 22:57:Carolann Gonzalez RN) Classes Attended: Yes (11/15/2016 22:57:RODNEY Hair) Tubal Ligation: No (11/15/2016 22:57:Carolann Gonzalez RN) Tubal Authorization Signed: N/A (11/15/2016 22:57:Carolann Gonzalez RN) Consent: N/A (11/15/2016 22:57:Carolann Gonzalez RN) Consent Signed: N/A (11/15/2016 22:57:Carolann Gonzalez RN) Pain Management Plans: Epidural (11/15/2016 22:57:RODNEY Hair) Plans for Labor and Delivery: None (11/15/2016 22:57:Carolann Gonzalez RN) Support Person: Demetrio Rizzo (11/15/2016 22:57:Carolann Gonzalez RN) Support Person Relationship: (11/15/2016 22:57:Carolann Gonzalez RN) Cultural/Spritual Practice: N/A (11/15/2016 22:57:Carolann Gonzalez RN) Spir/Cult Dietary Needs: N/A (11/15/2016 22:57:Carolann Gonzalez RN) LIVING SITUATION/DISCHARGE PLAN Living Arrangements: House (11/15/2016 22:57:Carolann Gonzalez RN) Adequate Access to:: Electric; Heat; Refrigeration; Plumbing/Running water; Phone; Transportation (11/15/2016 22:57:Carolann Gonzalez RN) WIC Program: No (11/15/2016 22:57:Carolann Gonzalez RN) Discharge Cement Fittings Maker Person: Demetrio Rizzo (11/15/2016 22:57:Carolann Gonzalez RN) Person to Help after Discharge: Demetrio Rizzo (11/15/2016 22:57:Carolann Gonzalez RN) Currently Using Commun Resources: No (11/15/2016 22:57:Carolann Gonzalez RN) Outside Agency/Print Finisher: No (11/15/2016 22:57:Carolann Gonzalez RN) Car Seat for Discharge: Yes (11/15/2016 22:57:RODNEY Hair) Adoption Requested: No (11/15/2016 22:57:Carolann Gonzalez RN) Pt Contact w/ Post : N/A (11/15/2016 22:57:Carolann Gonzalez RN) LABS Blood Type: A Positive (11/15/2016 22:57:Carolann Gonzalez RN) Antibody Screen: negative (11/15/2016 22:57:Carolann Gonzalez RN) Hemoglobin: 10.0 L (03/14/2017 07:32:QS system process) Hemoglobin: 11.5 L (03/13/2017 07:53:QS system process) Hemoglobin: 9.8 L (11/16/2016 07:12:QS system process) Hemoglobin: 11.3 L (11/16/2016 00:14:QS system process) Hematocrit: 29.3 L (03/14/2017 07:32:QS system process) Hematocrit: 33.1 L (03/13/2017 07:53:QS system process) Hematocrit: 28.1 L (11/16/2016 07:12:QS system process) Hematocrit: 32.3 L (11/16/2016 00:14:QS system process) MCV: 93 (03/14/2017 07:32:QS system process) MCV: 90 (03/13/2017 07:53:QS system process) MCV: 92 (11/16/2016 07:12:QS system process) MCV: 93 (11/16/2016 00:14:QS system process) Group Beta Strep: negative (11/15/2016 22:57:Yvette Aguillon RN) Gonorrhea: Negative (11/15/2016 22:57:Carolann Gonzalez RN) Chlamydia: Negative (11/15/2016 22:57:Carolann Gonzalez RN) RPR/VDRL: Nonreactive (11/15/2016 22:57:Carolann Gonzalez RN) HIV Exposure Test: Negative (11/15/2016 22:57:Yvette Aguillon RN) HIV Results: negative (11/15/2016 22:57:Yvette Aguillon RN) Hepatitis B: Negative (11/15/2016 22:57:Carolann Gonzalez RN) Rubella: Immune (11/15/2016 22:57:Carolann Gonzalez RN) OB/PREVIOUS HISTORY Previous Procedures: None (11/15/2016 22:57:Carolann Gonzalez RN) Current Procedures: Ultrasound (11/15/2016 22:57:Carolann Gonzalez RN) History of Previous : No (11/15/2016 22:57:Carolann Gonzalez RN) History of Gestational Diabetes: No (11/15/2016 22:57:Carolann Gonzalez RN) History of PIH: No (11/15/2016 22:57:Carolann Gonzalez RN) History of Incompetent Cervix: No (11/15/2016 22:57:Carolann Gonzalez RN) History of Placenta Previa/Abrup: No (11/15/2016 22:57:Carolann Gonzalez RN) History of Macrosomia: No (11/15/2016 22:57:Carolann Gonzalez RN) History of IUGR: No (11/15/2016 22:57:Carolann Gonzalez RN) History of Hemorrhage: No (11/15/2016 22:57:Carolann Gonzalez RN) History of Loss/Stillborn: No (11/15/2016 22:57:Carolann Gonzalez RN) History of : No (11/15/2016 22:57:Carolann Gonzalez RN) History of D (Rh) Sensitization: No (11/15/2016 22:57:Carolann Gonzalez RN) History Recurrent Loss/Stillborn: No (11/15/2016 22:57:Carolann Gonzalez RN) History Depression/PP Depression: No (11/15/2016 22:57:Carolann Gonzalez RN) History of Uterine Anomaly/DEMETRIUS: No (11/15/2016 22:57:Carolann Gonzalez RN) History of Infertility: No (11/15/2016 22:57:Carolann Gonzalez RN) History of ART Treatment: No (11/15/2016 22:57:Carolann Gonzalez RN) History of DEMETRIUS: No (11/15/2016 22:57:Carolann Gonzalez RN) Comments Obstetrical History: g1-7 weeks g2- current (11/15/2016 22:57:Carolann Gonzalez RN) MEDICAL HISTORY Med Hx Diabetes: No (11/15/2016 22:57:Carolann Gonzalez RN) Med Hx Hypertension: No (11/15/2016 22:57:Carolann Gonzalez RN) Med Hx Heart Disease: No (11/15/2016 22:57:Carolann Gonzalez RN) Med Hx Autoimmune Disorder: No (11/15/2016 22:57:Carolann Gonzalez RN) Med Hx Kidney Disease/UTI: No (11/15/2016 22:57:Carolann Gonzalez RN) Med Hx Neurologic/Epilepsy: No (11/15/2016 22:57:Carolann Gonzalez RN) Med Hx Psychiatric Disorders: No (11/15/2016 22:57:Carolann Gonzalez RN) Med Hx Hepatitis/Liver Disease: No (11/15/2016 22:57:Carolann Gonzalez RN) Med Hx Varicosities/Phlebitis: No (11/15/2016 22:57:Carolann Gonzalez RN) Med Hx Thyroid Dysfunction: No (11/15/2016 22:57:Carolann Gonzalez RN) Med Hx Trauma/Violence: No (11/15/2016 22:57:Carolann Gonzalez RN) Med Hx Blood Transfusion: No (11/15/2016 22:57:Carolann Gonzalez RN) Med Hx Pulmonary (Asthma,TB): No (11/15/2016 22:57:Carolann Gonzalez RN) Med Hx Breast: No (11/15/2016 22:57:Carolann Gonzalez RN) Med Hx STITCHER STANDARD MACHINE Surgery: No (11/15/2016 22:57:Carolann Gonzalez RN) Med Hx Hospitalization/Surgery: Yes (11/15/2016 22:57:Carolann Gonzalez RN) Med Hx Anesthetic Complications: No (11/15/2016 22:57:Carolann Gonzalez RN) Med Hx Abnormal Pap Smear: No (11/15/2016 22:57:Carolann Gonzalez RN) Other Medical Diseases: No (11/15/2016 22:57:Carolann Gonzalez RN) Med Hx Significant Family Hx: No (11/15/2016 22:57:Carolann Gonzalez RN) Details of Med/Surg Hx: tonsilectomy, adenoidectomy, and removal of lump from breast bone (11/15/2016 22:57:Carolann Gonzalez RN) INFECTIOUS HISTORY Inf Hx Gonorrhea: No (11/15/2016 22:57:Carolann Gonzalez RN) Inf Hx Chlamydia: No (11/15/2016 22:57:Carolann Gonzalez RN) Inf Hx Syphilis: No (11/15/2016 22:57:Carolann Gonzalez RN) Inf Hx HIV/AIDS: No (11/15/2016 22:57:Carolann Gonzalez RN) Inf Hx Human Papilloma Virus: No (11/15/2016 22:57:Carolann Gonzalez RN) Inf Hx Pt/Partner Genital Herpes: No (11/15/2016 22:57:Carolann Gonzalez RN) Inf Hx Tuberculosis/Exposure: No (11/15/2016 22:57:Carolann Gonzalez RN) Inf Hx Hepatitis B,C: No (11/15/2016 22:57:Carolann Gonzalez RN) Inf Hx Rash or Viral Illness: No (11/15/2016 22:57:Carolann Gonzalez RN) GENETIC HISTORY Gen Hx Age >=35 at BABAK: No (11/15/2016 22:57:Carolann Gonzalez RN) Gen Hx Thalassemia: No (11/15/2016 22:57:Carolann Gonzalez RN) Gen Hx Congenital Heart Defect: No (11/15/2016 22:57:Carolann Gonzalez RN) Gen Hx Neural Tube Defect: No (11/15/2016 22:57:Carolann Gonzalez RN) Gen Hx Down's Syndrome: No (11/15/2016 22:57:Carolann Gonzalez RN) Gen Hx Denton-Sachs: No (11/15/2016 22:57:Carolann Gonzalez RN) Gen Hx Patricia: No (11/15/2016 22:57:Carolann Gonzalez RN) Gen Hx Familial Dysautonomia: No (11/15/2016 22:57:Carolann Gonzalez RN) Gen Hx Sickle Cell Disease/Trait: No (11/15/2016 22:57:Carolann Gonzalez RN) Gen Hx Hemophilia/Blood Disorder: No (11/15/2016 22:57:Carolann Gonzalez RN) Gen Hx Muscular Dystrophy: No (11/15/2016 22:57:Carolann Gonzalez RN) Gen Hx Cystic Fibrosis: No (11/15/2016 22:57:Carolann Gonzalez RN) Gen Hx Huntingtons Chorea: No (11/15/2016 22:57:Carolann Gonzalez RN) Gen Hx Mental Retardation/Autism: No (11/15/2016 22:57:Carolann Gonzalez RN) Gen Hx Tested for Fragile X: No (11/15/2016 22:57:Carolann Gonzalez RN) Gen Hx Other Inher/Chromosomal: No (11/15/2016 22:57:Carolann Gonzalez RN) Gen Hx Maternal Metabolic DO: No (11/15/2016 22:57:Carolann Gonzalez RN) Gen Hx Pt Father or FOB Defect: No (11/15/2016 22:57:Carolann Gonzalez RN) Gen Hx Other Genetic History: No (11/15/2016 22:57:Carolann Gonzalez RN) Gen Hx Drugs/Meds since LMP: No (11/15/2016 22:57:Carolann Gonzalez RN)
--- NOTE | 2017-03-15 04:46 | L&D General Admission ---
General Admit Datetime Report Generated by CPN: 03/15/2017 04:45 CARE Height (in): (03/14/2017 10:01:QS system process) Height (in): (03/14/2017 09:14:QS system process) Height (in): (03/13/2017 10:03:QS system process) Height (in): (03/13/2017 07:21:QS system process) ALLERGIES Medication Allergies: clavulanic acid (10/13/2016); clarithromycin (03/13/2017); amoxicillin (10/13/2016) (03/13/2017 07:21:QS system process) LABS Hemoglobin: 10.0 L (03/14/2017 07:32:QS system process) Hemoglobin: 11.5 L (03/13/2017 07:53:QS system process) Hematocrit: 29.3 L (03/14/2017 07:32:QS system process) Hematocrit: 33.1 L (03/13/2017 07:53:QS system process) MCV: 93 (03/14/2017 07:32:QS system process) MCV: 90 (03/13/2017 07:53:QS system process)
--- NOTE | 2017-03-15 04:46 | L&D Current Admission ---
Current Admit Datetime Report Generated by CPN: 03/15/2017 04:45 ADMISSION INFORMATION Current Admit Date/Time: 03/13/2017 07:25 (03/13/2017 07:45:RODNEY Hair) Reason for Admission: Induction of Labor (03/13/2017 07:45:RODNEY Hair) Chief Complaint: Scheduled Induction of Labor (03/13/2017 07:45:RODNEY Hair) Medications During : Vitamin; Hydroxyzine (Vistaril) (03/13/2017 07:45:RODNEY Hair) Meds During -Oth: macrobid and vitamins (03/13/2017 07:45:RODNEY Hair) EGA per Dates: 40.0 (03/13/2017 07:45:QS system process) Method of Arrival: Ambulatory (03/13/2017 07:45:RODNEY Hair) Admitted From: Home (03/13/2017 07:45:RODNEY Hair) Reason for Induction: Maternal Diabetes; Other (03/13/2017 07:45:RODNEY Hair) Reason for Induction- Other: GDM diet controlled (03/13/2017 07:45:RODNEY Hair) Records Available: Yes (03/13/2017 07:45:RODNEY Hair) General Admission Information: Reviewed; Updated; Confirmed (03/13/2017 07:45:RODNEY Hair) General Admission Reviewed By: Jasmyne STEVENS (03/13/2017 07:45:RODNEY Hair) BELONGINGS/ADVANCED DIRECTIVES Valuables/Personal Effects: Purse/Wallet; Cell Phone (03/13/2017 07:45:RODNEY Hair) Disposition of Belongings: Kept with Patient (03/13/2017 07:45:RODNEY Hair) Advance Direct for Healthcare: No, and Wants No Information (03/13/2017 07:45:RODNEY Hair) Durable Power of Wordpress Developer: No (03/13/2017 07:45:RODNEY Hair) Living Will: Yes (03/13/2017 07:45:RODNEY Hair) Organ Donor: Yes (03/13/2017 07:45:RODNEY Hair) Pt Rights Information Given: Yes (03/13/2017 07:45:RODNEY Hair) Pt Understands Pt Rights: Yes (03/13/2017 07:45:RODNEY Hair) Patient Rights Comments: requests notary (03/13/2017 07:45:RODNEY Hair) LEARNING ASSESSMENT Knowledge Level: Understands L_D Process; Understands Care Activities; Had Pre-Hospital Education (03/13/2017 07:45:RODNEY Hair) Barriers to Learning: None (03/13/2017 07:45:RODNEY Hair) Learning Readiness: Motivated (03/13/2017 07:45:RODNEY Hair) Learns Best By: 1 to 1 Instruction; Demonstration (03/13/2017 07:45:RODNEY Hair) Learning Needs: Labor and Delivery Process; Pain Management; Symptoms to Report; Treatment Plan; Medication; Diagnosis; Nutrition; Equipment; Infant Care; Community Resources; Other (03/13/2017 07:45:RODNEY Hair) Learning Assessment Comments: (03/13/2017 07:45:RODNEY Hair) DOMESTIC VIOLANCE SCREENING Dom Viol Threatened/Hurt: No (03/13/2017 07:45:RODNEY Hair) Hx of Abuse/Neglect past 2yrs: No (03/13/2017 07:45:RODNEY Hair) Feel Unsafe Going Home: No (03/13/2017 07:45:RODNEY Hair) Addt'l Observ Indicating Abuse: No (03/13/2017 07:45:RODNEY Hair) Reason Unable to Complete Screen: N/A, Screen Completed (03/13/2017 07:45:RODNEY Hair) Considered Personal Harm/Suicide: No (03/13/2017 07:45:RODNEY Hair) NUTRITIONAL/FUNCTIONAL SCREENING Problem with Appetite >5 Days: No (03/13/2017 07:45:RODNEY Hair) Chew/Swallow Difficulties: No (03/13/2017 07:45:RODNEY Hair) Inappropriate Wt Gain/Loss: No (03/13/2017 07:45:RODNEY Hair) Presence Skin Breakdown/Ulcer: No (03/13/2017 07:45:RODNEY Hair) Special Diet: No (03/13/2017 07:45:RODNEY Hair) Specify Diet: lactose intolerant (03/13/2017 07:45:RODNEY Hair) Pt Requests Planer Offbearer Visit: No (03/13/2017 07:45:RODNEY Hair) Hx of Any of the Following?: N/A (03/13/2017 07:45:RODNEY Hair) New Diagnosis of: N/A (03/13/2017 07:45:RODNEY Hair) Requires Assist w/Ambulation: No (03/13/2017 07:45:RODNEY Hair) Uses Assist Device to Ambulate: No (03/13/2017 07:45:RODNEY Hair) Pt Requires Help w/ADL's: No (03/13/2017 07:45:RODNEY Hair)
--- NOTE | 2017-03-15 04:47 | L&D Admission Assessment ---
LD ADM ASMT Datetime Report Generated by CPN: 03/15/2017 04:45 PATIENT ASSESSMENT Assessment Type: Admission Assessment (03/13/2017 07:45:Jasmyne Salem, RNC) WEIGHT Weight (lb): 185 (03/14/2017 10:01:QS system process) Weight (lb): 185 (03/14/2017 09:14:QS system process) Weight (lb): 185 (03/13/2017 10:03:QS system process) Weight (lb): 185 (03/13/2017 07:21:QS system process) Weight (kg): 84.1 (03/14/2017 10:01:QS system process) Weight (kg): 84.1 (03/14/2017 09:14:QS system process) Weight (kg): 84.1 (03/13/2017 10:03:QS system process) Weight (kg): 84.1 (03/13/2017 07:21:QS system process) Total Wt Gain (lb): 37 (03/14/2017 10:01:QS system process) Total Wt Gain (lb): 37 (03/14/2017 09:14:QS system process) Total Wt Gain (lb): 37 (03/13/2017 10:03:QS system process) Total Wt Gain (lb): 37 (03/13/2017 07:21:QS system process) Wt Gain (kg): 16.7 (03/14/2017 10:01:QS system process) Wt Gain (kg): 16.7 (03/14/2017 09:14:QS system process) Wt Gain (kg): 16.7 (03/13/2017 10:03:QS system process) Wt Gain (kg): 16.7 (03/13/2017 07:21:QS system process) BMI: 29.0 (03/14/2017 10:01:QS system process) BMI: 29.0 (03/14/2017 09:14:QS system process) BMI: 29.0 (03/13/2017 10:03:QS system process) BMI: 29.9 (03/13/2017 07:21:QS system process) PAIN Pain Scale: 1 (03/14/2017 08:50:Jasmyne Camp, RNC) Pain Scale: 1 (03/14/2017 07:20:Jasmyne Camp, RNC) Pain Scale: 1 (03/14/2017 06:00:Dyan Danielson, RN) Pain Scale: 2 (03/13/2017 20:05:Dyan Danielson, RN) Pain Scale: 1 (03/13/2017 19:10:Jasmyne Camp, RNC) Pain Scale: 2 (03/13/2017 19:04:Jasmyne Camp, RNC) Pain Scale: 2 (03/13/2017 18:35:Jasmyne Camp, RNC) Pain Scale: 0 (03/13/2017 18:04:Jasmyne Camp, RNC) Pain Scale: 0 (03/13/2017 15:00:Jasmyne Camp, RNC) Pain Scale: 4 (03/13/2017 13:43:Jasmyne Camp, RNC) Pain Scale: 3 (03/13/2017 13:00:Jasmyne Camp, RNC) Pain Scale: 2 (03/13/2017 11:15:Jasmyne Camp, RNC) Pain Scale: 0 (03/13/2017 09:15:Jasmyne Camp, RNC) Pain Scale: 0 (03/13/2017 07:45:Jasmyne Camp, RNC) Pain Presence: Intermittent (03/14/2017 08:50:Jasmyne Camp, RNC) Pain Presence: Intermittent (03/14/2017 07:20:Jasmyne Camp, RNC) Pain Presence: Intermittent (03/13/2017 20:05:Dyan Danielson, RN) Pain Presence: Intermittent (03/13/2017 19:10:Jasmyne Camp, RNC) Pain Presence: Intermittent (03/13/2017 19:04:Jasmyne Camp, RNC) Pain Presence: Intermittent (03/13/2017 18:35:Jasmyne Camp, RNC) Pain Presence: None/Denies (03/13/2017 18:04:Jasmyne Camp, RNC) Pain Presence: None/Denies (03/13/2017 15:00:Jasmyne Camp, RNC) Pain Presence: Intermittent (03/13/2017 13:43:Jasmyne Camp, RNC) Pain Presence: Intermittent (03/13/2017 13:00:Jasmyne Camp, RNC) Pain Presence: Intermittent (03/13/2017 11:15:Jasmyne Camp, RNC) Pain Presence: None/Denies (03/13/2017 09:15:Jasmyne Camp, RNC) Pain Presence: None/Denies (03/13/2017 07:45:Jasmyne Camp, RNC) Pain Type: Cramping (03/14/2017 08:50:Jasmyne Camp, RNC) Pain Type: Cramping (03/14/2017 07:20:Jasmyne Camp, RNC) Pain Type: Cramping (03/13/2017 20:05:Dyan Danielson RN) Pain Type: Cramping (03/13/2017 19:10:Jasmyne Scales, RNC) Pain Type: Cramping (03/13/2017 19:04:Jasmyne Camp, RNC) Pain Type: Cramping (03/13/2017 18:35:Jasmyne Scales, RNC) Pain Type: N/A (03/13/2017 18:04:Jasmyne Camp, RNC) Pain Type: N/A (03/13/2017 15:00:Jasmyne Camp, RNC) Pain Type: Contraction (03/13/2017 13:43:Jasmyne Camp, RNC) Pain Type: Contraction (03/13/2017 13:00:Jasmyne Scales, RNC) Pain Type: Contraction (03/13/2017 11:15:Jasmyne Camp, RNC) Pain Type: N/A (03/13/2017 09:15:Jasmyne Camp, RNC) Pain Type: N/A (03/13/2017 07:45:Jasmyne Camp, RNC) Pain Location: Abdomen (03/14/2017 08:50:Jasmyne Camp, RNC) Pain Location: Abdomen (03/14/2017 07:20:Jasmyne Camp, RNC) Pain Location: Abdomen (03/13/2017 20:05:Dyan Danielson RN) Pain Location: Abdomen (03/13/2017 19:10:Jasmyne Camp, RNC) Pain Location: Abdomen (03/13/2017 19:04:Jasmyne Camp, RNC) Pain Location: Abdomen (03/13/2017 18:35:Jasmyne Camp, RNC) Pain Location: Back (03/13/2017 13:43:RODNEY Hair) Pain Location: Back (03/13/2017 13:00:RODNEY Hair) Pain Location: Abdomen (03/13/2017 11:15:RODNEY Hair) Pain Goal: 2 (03/13/2017 13:43:RODNEY Hair) Pain Goal: 2 (03/13/2017 11:15:RODNEY Hair) Pain Related to Contraction: No (03/13/2017 07:45:RODNEY Hair) Pain Comments: resting comfortably with no complaints (03/14/2017 07:20:RODNEY Hair) Pain Comments: Pt states perineum is very sore. When asked if she wanted stronger pain med, she declined. (03/14/2017 04:17:Dyan Danielson RN) Pain Comments: states she is "sore" (03/13/2017 19:30:Dyan Danielson RN) Pain Comments: no apparent distress noted (03/13/2017 19:04:RODNEY Hair) Pain Comments: no apparent distress noted (03/13/2017 18:04:RODNEY Hair) Pain Comments: requests epidural placement for pain (03/13/2017 13:43:RODNEY Hair) Pain Comments: c/o increasing back pain, repositioned to hands and kness with application of heat and counter pressure by (03/13/2017 13:00:RODNEY Hair) Pain Comments: unaware of contractions (03/13/2017 09:15:RODNEY Hair) Pain Comments: denies pain on admission (03/13/2017 07:45:RODNEY Hair) CONTRACTIONS Frequency (min): 1.5-3 (03/13/2017 17:45:Jasmyne Camp, RNC) Frequency (min): 1.5-2 (03/13/2017 17:30:Jasmyne Camp, RNC) Frequency (min): 1-3 (03/13/2017 17:15:Jasmyne Camp, RNC) Frequency (min): 1-3 (03/13/2017 17:00:Jasmyne Camp, RNC) Frequency (min): 1-3 (03/13/2017 16:45:Jasmyne Camp, RNC) Frequency (min): 1-3 (03/13/2017 16:30:Jasmyne Camp, RNC) Frequency (min): 1-2 (03/13/2017 16:15:Jasmyne Camp, RNC) Frequency (min): 1-2 (03/13/2017 16:00:Jasmyne Camp, RNC) Frequency (min): 1-3 (03/13/2017 15:45:Jasmyne Camp, RNC) Frequency (min): 1-3 (03/13/2017 15:30:Jasmyne Camp, RNC) Frequency (min): 1.5-3 (03/13/2017 15:15:Jasmyne Camp, RNC) Frequency (min): 1.5-2 (03/13/2017 15:00:Jasmyne Camp, RNC) Frequency (min): 1.5-2 (03/13/2017 14:45:Jasmyne Camp, RNC) Frequency (min): 1-3 (03/13/2017 14:30:Jasmyne Camp, RNC) Frequency (min): 1-3 (03/13/2017 14:15:Jasmyne Camp, RNC) Frequency (min): 1-3 (03/13/2017 14:00:Jasmyne Camp, RNC) Frequency (min): 1.5-3 (03/13/2017 13:45:Jasmyne Camp, RNC) Frequency (min): 2.5-3 (03/13/2017 13:30:Nerissa Pyle, RNC) Frequency (min): 2.5-4 (03/13/2017 13:15:Nerissa Pyle RNC) Frequency (min): 1-3 (03/13/2017 13:00:Jasmyne Camp, RNC) Frequency (min): 1-4 (03/13/2017 12:45:Jasmyne Camp, RNC) Frequency (min): 2-3 (03/13/2017 12:30:Nerissa Edenilson, RNC) Frequency (min): 2-3 (03/13/2017 12:15:Nerissa Edenilson, RNC) Frequency (min): 1-3 (03/13/2017 12:02:Jasmyne Camp, RNC) Frequency (min): 2-3 (03/13/2017 12:00:Nerissa Edenilson, RNC) Frequency (min): 2-3.5 (03/13/2017 11:45:Nerissa Edenilson, RNC) Frequency (min): 2-2.5 (03/13/2017 11:30:Nerissa Edenilson, RNC) Frequency (min): 2.5-3 (03/13/2017 11:15:Nerissa Edenilson, RNC) Frequency (min): 1-4 (03/13/2017 10:45:Jasmyne Camp, RNC) Frequency (min): 2-4 (03/13/2017 10:30:Jasmyne Camp, RNC) Frequency (min): 2-3 (03/13/2017 10:15:Nerissa Edenilson, RNC) Frequency (min): 3-4 (03/13/2017 10:00:Jasmyne Camp, RNC) Frequency (min): 3-5 (03/13/2017 09:45:Jasmyne Camp, RNC) Frequency (min): 4-5 (03/13/2017 09:30:Jasmyne Camp, RNC) Frequency (min): 2-5 (03/13/2017 09:15:Jasmyne Camp, RNC) Frequency (min): 5-7 (03/13/2017 09:00:Jasmyne Camp, RNC) Frequency (min): 5-7 (03/13/2017 08:45:Jasmyne Camp, RNC) Frequency (min): 5-8 (03/13/2017 08:30:Jasmyne Camp, RNC) Frequency (min): irregular (03/13/2017 08:15:Jasmyne Camp, RNC) Frequency (min): irregular (03/13/2017 08:00:Jasmyne Camp, RNC) Frequency (min): irregular (03/13/2017 07:45:Jasmyne Camp, RNC) Duration (sec): 60-100 (03/13/2017 17:45:Jasmyne Camp, RNC) Duration (sec): 70-100 (03/13/2017 17:30:Jasmyne Camp, RNC) Duration (sec): 60-90 (03/13/2017 17:15:Jasmyne Camp, RNC) Duration (sec): 60-100 (03/13/2017 17:00:Jasmyne Camp, RNC) Duration (sec): 60-90 (03/13/2017 16:45:Jasmyne Camp, RNC) Duration (sec): 60-90 (03/13/2017 16:30:Jasmyne Camp, RNC) Duration (sec): 70-100 (03/13/2017 16:15:Jasmyne Camp, RNC) Duration (sec): 70-100 (03/13/2017 16:00:Jasmyne Camp, RNC) Duration (sec): 60-80 (03/13/2017 15:45:Jasmyne Camp, RNC) Duration (sec): 70-100 (03/13/2017 15:30:Jasmyne Camp, RNC) Duration (sec): 50-90 (03/13/2017 15:15:Jasmyne Camp, RNC) Duration (sec): 70-90 (03/13/2017 15:00:Jasmyne Camp, RNC) Duration (sec): 70-80 (03/13/2017 14:45:Jasmyne Camp, RNC) Duration (sec): 60-80 (03/13/2017 14:30:Jasmyne Camp, RNC) Duration (sec): 60-80 (03/13/2017 14:15:Jasmyne Camp, RNC) Duration (sec): 60-80 (03/13/2017 14:00:Jasmyne Camp, RNC) Duration (sec): 50-80 (03/13/2017 13:45:Jasmyne Camp, RNC) Duration (sec): 60-90 (03/13/2017 13:30:Nerissa Pyle RNC) Duration (sec): 60-90 (03/13/2017 13:15:Nerissa Pyle RNC) Duration (sec): 60-100 (03/13/2017 13:00:Jasmyne Yordy, RNC) Duration (sec): 50-80 (03/13/2017 12:45:Jasmyne Camp, RNC) Duration (sec): 60-90 (03/13/2017 12:30:Nerissa Pyle RNC) Duration (sec): 60-90 (03/13/2017 12:15:Nerissa Pyle RNC) Duration (sec): 60-90 (03/13/2017 12:02:Jasmyne Scales, RNC) Duration (sec): 60-90 (03/13/2017 12:00:Nerissa Pyle RNC) Duration (sec): 60-90 (03/13/2017 11:45:Nerissa Pyle RNC) Duration (sec): 60-90 (03/13/2017 11:30:Nerissa Pyle RNC) Duration (sec): 60-90 (03/13/2017 11:15:Nerissa Pyle RNC) Duration (sec): 60-100 (03/13/2017 10:45:Jasmyne Camp, RNC) Duration (sec): 50-100 (03/13/2017 10:30:Jasmyne Camp, RNC) Duration (sec): 60-90 (03/13/2017 10:15:Nerissa Pyle RNC) Duration (sec): 80-100 (03/13/2017 10:00:Jasmyne Camp, RNC) Duration (sec): 60-70 (03/13/2017 09:45:Jasmyne Camp, RNC) Duration (sec): 60-70 (03/13/2017 09:30:Jasmyne Camp, RNC) Duration (sec): 50-80 (03/13/2017 09:15:Jasmyne Camp, RNC) Duration (sec): 60-70 (03/13/2017 09:00:Jasmyne Camp, RNC) Duration (sec): 60-70 (03/13/2017 08:45:Jasmyne Camp, RNC) Duration (sec): 60-80 (03/13/2017 08:30:Jasmyne Camp, RNC) Duration (sec): 60-110 (03/13/2017 08:15:Jasmyne Camp, RNC) Duration (sec): 60-110 (03/13/2017 08:00:Jasmyne Camp, RNC) Duration (sec): 70-90 (03/13/2017 07:45:Jasmyne Camp, RNC) Quality: Moderate to Strong (03/13/2017 17:45:Jasmyne Camp, RNC) Quality: Strong (03/13/2017 17:30:Jasmyne Camp, RNC) Quality: Moderate to Strong (03/13/2017 17:15:Jasmyne Camp, RNC) Quality: Moderate to Strong (03/13/2017 17:00:Jasmyne Camp, RNC) Quality: Moderate to Strong (03/13/2017 16:45:Jasmyne Camp, RNC) Quality: Moderate to Strong (03/13/2017 16:30:Jasmyne Camp, RNC) Quality: Moderate to Strong (03/13/2017 16:15:Jasmyne Camp, RNC) Quality: Moderate to Strong (03/13/2017 16:00:Jasmyne Camp, RNC) Quality: Moderate to Strong (03/13/2017 15:45:Jasmyne Camp, RNC) Quality: Moderate to Strong (03/13/2017 15:30:Jasmyne Camp, RNC) Quality: Moderate to Strong (03/13/2017 15:15:Jasmyne Camp, RNC) Quality: Moderate to Strong (03/13/2017 15:00:Jasmyne Camp, RNC) Quality: Moderate (03/13/2017 14:45:Jasmyne Camp, RNC) Quality: Moderate to Strong (03/13/2017 14:30:Jasmyne Camp, RNC) Quality: Moderate to Strong (03/13/2017 14:15:Jasmyne Camp, RNC) Quality: Moderate to Strong (03/13/2017 14:00:Jasmyne Camp, RNC) Quality: Moderate to Strong (03/13/2017 13:45:Jasmyne Camp, RNC) Quality: Mild/Moderate (03/13/2017 13:30:Nerissa Pyle RNC) Quality: Mild/Moderate (03/13/2017 13:15:Nerissa Edenilson, RNC) Quality: Moderate (03/13/2017 13:00:Jasmyne Camp, RNC) Quality: Mild/Moderate (03/13/2017 12:45:Jasmyne Camp, RNC) Quality: Mild/Moderate (03/13/2017 12:30:Nerissa Pyle, RNC) Quality: Mild/Moderate (03/13/2017 12:15:Nerissa Pyle, RNC) Quality: Mild/Moderate (03/13/2017 12:02:Jasmyne Camp, RNC) Quality: Mild/Moderate (03/13/2017 12:00:Nerissa Pyle, RNC) Quality: Mild/Moderate (03/13/2017 11:45:Nerissa Pyle, RNC) Quality: Mild/Moderate (03/13/2017 11:30:Nerissa Pyle, RNC) Quality: Mild/Moderate (03/13/2017 11:15:Nerissa Pyle, RNC) Quality: Mild (03/13/2017 10:45:Jasmyne Camp, RNC) Quality: Mild (03/13/2017 10:30:Jasmyne Camp, RNC) Quality: Mild/Moderate (03/13/2017 10:15:Nerissa Pyle, RNC) Quality: Mild (03/13/2017 10:00:Jasmyne Camp, RNC) Quality: Mild/Moderate (03/13/2017 09:45:Jasmyne Camp, RNC) Quality: Mild (03/13/2017 09:30:Jasmyne Camp, RNC) Quality: Mild (03/13/2017 09:15:Jasmyne Camp, RNC) Quality: Mild (03/13/2017 09:00:Jasmyne Camp, RNC) Quality: Mild (03/13/2017 08:45:Jasmyne Camp, RNC) Quality: Mild (03/13/2017 08:30:Jasmyne Camp, RNC) Quality: Mild (03/13/2017 08:15:Jasmyne Camp, RNC) Quality: Mild (03/13/2017 08:00:Jasmyne Camp, RNC) Quality: Mild (03/13/2017 07:45:Jasmyne Camp, RNC) Pattern: Normal: <= 5 Contractions in 10 Minutes (03/13/2017 17:45:Jasmyne Camp, RNC) Pattern: Normal: <= 5 Contractions in 10 Minutes (03/13/2017 17:30:Jasmyne Camp, RNC) Pattern: Normal: <= 5 Contractions in 10 Minutes (03/13/2017 17:15:Jasmyne Camp, RNC) Pattern: Normal: <= 5 Contractions in 10 Minutes (03/13/2017 16:45:Jasmyne Camp, RNC) Pattern: Normal: <= 5 Contractions in 10 Minutes (03/13/2017 16:30:Jasmyne Camp, RNC) Pattern: Normal: <= 5 Contractions in 10 Minutes (03/13/2017 16:15:Jasmyne Camp, RNC) Pattern: Normal: <= 5 Contractions in 10 Minutes (03/13/2017 16:00:Jasmyne Camp, RNC) Pattern: Normal: <= 5 Contractions in 10 Minutes (03/13/2017 15:45:Jasmyne Camp, RNC) Pattern: Normal: <= 5 Contractions in 10 Minutes (03/13/2017 15:30:Jasmyne Camp, RNC) Pattern: Normal: <= 5 Contractions in 10 Minutes (03/13/2017 15:15:Jasmyne Camp, RNC) Pattern: Normal: <= 5 Contractions in 10 Minutes (03/13/2017 15:00:Jasmyne Camp, RNC) Pattern: Normal: <= 5 Contractions in 10 Minutes (03/13/2017 14:30:Jasmyne Camp, RNC) Pattern: Normal: <= 5 Contractions in 10 Minutes (03/13/2017 14:15:Jasmyne Camp, RNC) Pattern: Normal: <= 5 Contractions in 10 Minutes (03/13/2017 14:00:Jasmyne Camp, RNC) Pattern: Normal: <= 5 Contractions in 10 Minutes (03/13/2017 13:45:Jasmyne Camp, RNC) Pattern: Normal: <= 5 Contractions in 10 Minutes (03/13/2017 13:30:Nerissa Pyle RNC) Pattern: Normal: <= 5 Contractions in 10 Minutes (03/13/2017 13:15:Nerissa Pyle, RNC) Pattern: Normal: <= 5 Contractions in 10 Minutes (03/13/2017 13:00:Jasmyne Camp, RNC) Pattern: Normal: <= 5 Contractions in 10 Minutes (03/13/2017 12:45:Jasmyne Camp, RNC) Pattern: Normal: <= 5 Contractions in 10 Minutes (03/13/2017 12:30:Nerissa Pyle RNC) Pattern: Normal: <= 5 Contractions in 10 Minutes (03/13/2017 12:15:Nerissa Pyle RNC) Pattern: Normal: <= 5 Contractions in 10 Minutes (03/13/2017 12:02:Jasmynestanislav Scales, RNC) Pattern: Normal: <= 5 Contractions in 10 Minutes (03/13/2017 12:00:Nerissa Pyle RNC) Pattern: Normal: <= 5 Contractions in 10 Minutes (03/13/2017 11:45:Nerissa Pyle RNC) Pattern: Normal: <= 5 Contractions in 10 Minutes (03/13/2017 11:30:Nerissa Pyle RNC) Pattern: Normal: <= 5 Contractions in 10 Minutes (03/13/2017 11:15:Nerissa Pyle RNC) Pattern: Normal: <= 5 Contractions in 10 Minutes (03/13/2017 10:45:Jasmyne Yordy, RNC) Pattern: Normal: <= 5 Contractions in 10 Minutes (03/13/2017 10:30:Jasmyne Yordy, RNC) Pattern: Normal: <= 5 Contractions in 10 Minutes (03/13/2017 10:15:Nerissa Pyle RNC) Pattern: Normal: <= 5 Contractions in 10 Minutes (03/13/2017 10:00:Jasmyne Yordy, RNC) Pattern: Normal: <= 5 Contractions in 10 Minutes (03/13/2017 09:45:Jasmyne Camp, RNC) Pattern: Normal: <= 5 Contractions in 10 Minutes (03/13/2017 09:30:Jasmyne Camp, RNC) Pattern: Normal: <= 5 Contractions in 10 Minutes (03/13/2017 09:15:Jasmyne Camp, RNC) Pattern: Normal: <= 5 Contractions in 10 Minutes (03/13/2017 09:00:Jasmyne Camp, RNC) Pattern: Normal: <= 5 Contractions in 10 Minutes (03/13/2017 08:45:Jasmyne Camp, RNC) Pattern: Normal: <= 5 Contractions in 10 Minutes (03/13/2017 08:30:Jasmyne Camp, RNC) Pattern: Normal: <= 5 Contractions in 10 Minutes (03/13/2017 08:15:Jasmyne Camp, RNC) Pattern: Normal: <= 5 Contractions in 10 Minutes (03/13/2017 08:00:Jasmyne Camp, RNC) Pattern: Normal: <= 5 Contractions in 10 Minutes (03/13/2017 07:45:Jasmyne Camp, RNC) Resting Tone [place]: Relaxed (03/13/2017 17:45:Jasmyne Camp, RNC) Resting Tone [place]: Relaxed (03/13/2017 17:30:Jasmyne Camp, RNC) Resting Tone [place]: Relaxed (03/13/2017 17:15:Jasmyne Camp, RNC) Resting Tone [place]: Relaxed (03/13/2017 17:00:Jasmyne Camp, RNC) Resting Tone [place]: Relaxed (03/13/2017 16:45:Jasmyne Camp, RNC) Resting Tone [place]: Relaxed (03/13/2017 16:30:Jasmyne Camp, RNC) Resting Tone [place]: Relaxed (03/13/2017 16:15:Jasmyne Camp, RNC) Resting Tone [place]: Relaxed (03/13/2017 16:00:Jasmyne Camp, RNC) Resting Tone [place]: Relaxed (03/13/2017 15:45:Jasmyne Camp, RNC) Resting Tone [place]: Relaxed (03/13/2017 15:30:Jasmyne Camp, RNC) Resting Tone [place]: Relaxed (03/13/2017 15:15:Jasmyne Camp, RNC) Resting Tone [place]: Relaxed (03/13/2017 15:00:Jasmyne Camp, RNC) Resting Tone [place]: Relaxed (03/13/2017 14:45:Jasmyne Camp, RNC) Resting Tone [place]: Relaxed (03/13/2017 14:30:Jasmyne Camp, RNC) Resting Tone [place]: Relaxed (03/13/2017 14:15:Jasmyne Camp, RNC) Resting Tone [place]: Relaxed (03/13/2017 14:00:Jasmyne Camp, RNC) Resting Tone [place]: Relaxed (03/13/2017 13:45:Jasmyne Camp, RNC) Resting Tone [place]: Relaxed (03/13/2017 13:30:RODNEY Khanna) Resting Tone [place]: Relaxed (03/13/2017 13:15:Nerissa Pyle RNC) Resting Tone [place]: Relaxed (03/13/2017 13:00:Jasmynestanislav Scales, RNC) Resting Tone [place]: Relaxed (03/13/2017 12:45:Jasmynestanislav Scales, RNC) Resting Tone [place]: Relaxed (03/13/2017 12:30:Nerissa Pyle RNC) Resting Tone [place]: Relaxed (03/13/2017 12:15:Nerissa Pyle RNC) Resting Tone [place]: Relaxed (03/13/2017 12:02:Jasmynestanislav Scales, RNC) Resting Tone [place]: Relaxed (03/13/2017 12:00:Nerissa Pyle RNC) Resting Tone [place]: Relaxed (03/13/2017 11:45:Nerissa Pyle RNC) Resting Tone [place]: Relaxed (03/13/2017 11:30:Nerissa Pyle RNC) Resting Tone [place]: Relaxed (03/13/2017 11:15:Nerissa Pyle RNC) Resting Tone [place]: Relaxed (03/13/2017 11:00:Jasmynestanislav Scales, RNC) Resting Tone [place]: Relaxed (03/13/2017 10:45:Jasmyne Camp, RNC) Resting Tone [place]: Relaxed (03/13/2017 10:30:Jasmyne Camp, RNC) Resting Tone [place]: Relaxed (03/13/2017 10:15:Nerissa Pyle RNC) Resting Tone [place]: Relaxed (03/13/2017 10:00:Jasmyne Camp, RNC) Resting Tone [place]: Relaxed (03/13/2017 09:45:Jasmyne Camp, RNC) Resting Tone [place]: Relaxed (03/13/2017 09:30:Jasmyne Camp, RNC) Resting Tone [place]: Relaxed (03/13/2017 09:15:Jasmyne Camp, RNC) Resting Tone [place]: Relaxed (03/13/2017 09:00:Jasmyne Camp, RNC) Resting Tone [place]: Relaxed (03/13/2017 08:45:Jasmyne Camp, RNC) Resting Tone [place]: Relaxed (03/13/2017 08:30:Jasmyne Camp, RNC) Resting Tone [place]: Relaxed (03/13/2017 08:15:Jasmyne Camp, RNC) Resting Tone [place]: Relaxed (03/13/2017 08:00:Jasmyne Camp, RNC) Resting Tone [place]: Relaxed (03/13/2017 07:45:Jasmyne Camp, RNC) Contraction Comments: couplets noted (03/13/2017 15:30:Jasmyne Camp, RNC) Contraction Comments: couplets noted (03/13/2017 10:30:Jasmyne Camp, RNC) Contraction Comments: RN at bedside adjusting monitors (03/13/2017 09:15:Jasmyne Camp, RNC) VAGINAL EXAM Dilatation (cm): 10.0 (03/13/2017 17:23:Jasmyne Camp, RNC) Dilatation (cm): 9.5 (03/13/2017 16:30:Jasmyne Camp, RNC) Dilatation (cm): 5.5 (03/13/2017 14:30:Jasmyne Camp, RNC) Dilatation (cm): 4.0 (03/13/2017 12:27:Jasmyne Camp, RNC) Dilatation (cm): 2.5 (03/13/2017 08:09:Jasmyne Camp, RNC) Dilatation (cm): 2.5 (03/13/2017 07:45:Jasmyne Camp, RNC) Effacement (%): 100 (03/13/2017 17:23:Jasmyne Camp, RNC) Effacement (%): 100 (03/13/2017 16:30:Jasmyne Camp, RNC) Effacement (%): 90 (03/13/2017 14:30:Jasmyne Camp, RNC) Effacement (%): 80 (03/13/2017 12:27:Jasmyne Camp, RNC) Effacement (%): 80 (03/13/2017 08:09:Jasmyne Camp, RN) Effacement (%): 80 (03/13/2017 07:45:Jasmyne Camp, RNC) Station: 2 (03/13/2017 17:23:Jasmyne Camp, RNC) Station: 2 (03/13/2017 16:30:Jasmyne Camp, RNC) Station: 0 (03/13/2017 14:30:Jasmyne Camp, RN) Station: -1 (03/13/2017 12:27:Jasmyne Camp, [facility]) Station: -1 (03/13/2017 08:09:Jasmyne Camp, [facility]) Station: -1 (03/13/2017 07:45:Jasmyne Camp, [facility]) Presentation on Admission: Vertex (03/13/2017 07:45:Jasmyne Camp, [facility]) Membranes Status: Ruptured (03/13/2017 12:27:Jasmyne Camp, [facility]) Membranes Status: Intact (03/13/2017 07:45:Jasmyne Camp, [facility]) ROM Method: Artificial (03/13/2017 12:27:Jasmyne Camp, [facility]) Amniotic Fluid Color: Clear (03/13/2017 12:27:Jasmyne Camp, [facility]) Amniotic Fluid Amount: Small (03/13/2017 12:27:Jasmyne Camp, [facility]) Amniotic Fluid Odor: Normal (03/13/2017 12:27:Jasmyne Camp, [facility]) JAMES'S SCORE James's Score Dilatation (cm): 1-2 cm (03/13/2017 07:45:Jasmyne Camp, [facility]) James's Score Effacement (%): >80_ effaced (03/13/2017 07:45:Jasmyne Camp, [facility]) James's Score Station: minus 1 to 0 (03/13/2017 07:45:Jasmyne Camp, RN) James's Score Consistency: Soft (03/13/2017 07:45:Jasmyne Camp, [facility]) James's Score Position: Midposition (03/13/2017 07:45:Jasmyne Camp, [facility]) Total James's Score: 9 (03/13/2017 07:45:QS system process) James's Score Text: 9-14 = Usually no failure for induction (03/13/2017 07:45:QS system process) NEURO Level of Consciousness: Fully Conscious (03/13/2017 07:45:Jasmyne Camp, [facility]) DTR's/Clonus: DTRs 2+; No Clonus (03/13/2017 07:45:Jasmyne Camp, [facility]) Headache: Denies (03/13/2017 07:45:Jasmyne Camp, [facility]) Dizziness: No (03/13/2017 07:45:Jasmyne Camp, [facility]) Blurred Vision: No (03/13/2017 07:45:Jasmyne Camp, [facility]) Extremity Numbness/Tingling : None (03/13/2017 07:45:Jasmyne Camp, [facility]) Extremity Movement: Full Range of Motion (03/13/2017 07:45:Jasmyne Camp, [facility]) CARDIOVASCULAR Nailbeds: [place] (03/13/2017 07:45:Jasmyne Camp, R[facility]) Capillary Refill: Less than 3 Seconds (03/13/2017 07:45:Jasmyne Camp, [facility]) Lower Extremities Edema: None (03/13/2017 07:45:Jasmyne Camp, R[facility]) Lower Extremities Edema Degree: None (03/13/2017 07:45:Jasmyne Camp, [facility]) Upper Extremities Edema: None (03/13/2017 07:45:Jasmyne Camp, [facility]) Upper Extremities Edema Degree: None (03/13/2017 07:45:Jasmyne Camp, RNC) Facial Edema: None (03/13/2017 07:45:Jasmyne Camp, R[facility]) Grecia's Sign Left Leg: Negative (03/13/2017 07:45:Jasmyne Camp, RNC) Grecia's Sign Right Leg: Negative (03/13/2017 07:45:Jasmyne Camp, RNC) DVT RISK ASSESSMENT DVT Risk Age: Age less than 41 years (03/13/2017 07:45:Jasmyne Camp, RNC) DVT Risk BMI: BMI<31 (03/13/2017 07:45:Jasmyne Camp, R[facility]) DVT Risk Surgery: None Applicable (03/13/2017 07:45:Jasmyne Camp, RNC) DVT Risk Other: Women Only- or (<1 month) (03/13/2017 07:45:Jasmyne Camp, RNC) DVT Risk Total: 1 (03/13/2017 07:45:QS system process) DVT Risk Text: Low Risk (<10%) No specific measures, early ambulation (03/13/2017 07:45:QS system process) RESPIRATORY Respiratory Effort: Unlabored; Regular Rhythm; Equal Expansion (03/13/2017 07:45:Jasmyne Camp, R[facility]) Breath Sounds, Left: Clear and Equal (03/13/2017 07:45:Jasmyne Camp, [facility]) Breath Sounds, Right: Clear and Equal (03/13/2017 07:45:Jasmyne Camp, [facility]) Cough Productivity: None (03/13/2017 07:45:Jasmyne Camp, [facility]) GASTROINTESTINAL Nausea/Vomiting: Denies (03/13/2017 07:45:Jasmyne Camp, RNC) Bowel Sounds: Normoactive; All Quadrants (03/13/2017 07:45:Jasmyne Camp, [facility]) RUQ Epigastric Pain: Denies (03/13/2017 07:45:Jasmyne Camp, [facility]) Bowel Patterns: Soft, Formed Stool (03/13/2017 07:45:Jasmyne Camp, [facility]) Hemorrhoids: None (03/13/2017 07:45:Jasmyne Camp, [facility]) Diet Type: Regular diet (03/13/2017 07:45:Jasmyne Camp, [facility]) Last Meal: 03/13/2017 06:30 (03/13/2017 07:45:Jasmyne Camp, [facility]) GENITOURINARY Bladder: Nondistended (03/13/2017 07:45:Jasmyne Camp, [facility]) Frequency of Urination: No (03/13/2017 07:45:Jasmyne Camp, [facility]) Urination Burning: No (03/13/2017 07:45:Jasmyne Camp, [facility]) CVA Tenderness: No (03/13/2017 07:45:Jasmyne Camp, [facility]) Vaginal Bleeding: Scant (03/13/2017 07:45:Jasmyne Camp, [facility]) Vaginal Discharge Amount: Small (03/13/2017 07:45:Jasmyne Camp, [facility]) Vaginal Discharge Color: Brown (03/13/2017 07:45:Jasmyne Camp, [facility]) Vaginal Discharge Character: Thick (03/13/2017 07:45:Jasmyne Camp, [facility]) INTEGUMENTARY Skin Color: Normal for Race (03/13/2017 07:45:RODNEY Hair) Skin Temperature: Warm (03/13/2017 07:45:[facility]ODNEY Hair) Skin Moisture: Dry (03/13/2017 07:45:RODNEY Hair) Surgical Scars: appendectomy, and lumpectomy (03/13/2017 07:45:RODNEY Hair) Body Piercings/Tattoos: multiple tattoos and ears pierced (03/13/2017 07:45:RODNEY Hair) JAIME SKIN ASSESSMENT Jaime Scale Sensory Perception: No Impairment- Responds to verbal commands. Has no sensory deficit which would limit ability to feel or voice pain or discomfort (03/13/2017 07:45:RODNEY Hair) Jaime Scale Moisture: Rarely Moist- Skin is usually dry. Linen only requires changing at routine intervals (03/13/2017 07:45:RODNEY Hair) Jaime Scale Activity: Walks Frequently- Walks outside the room at least twice a day and inside room at least every 2 hours during the day. (03/13/2017 07:45:RODNEY Hair) Jaime Scale Mobility: No Limitations- Makes major and frequent changes in position without assistance (03/13/2017 07:45:RODNEY Hair) Jaime Scale Nutrition: Excellent- Eats most of every meal. Never refuses a meal. Usually eats a total of 4 or more servings of meat and dairy products. Occasionally eats between meals. Does not require supplementation (03/13/2017 07:45:RODNEY Hair) Jaime Scale Friction and Shear: No Apparent Problem- Moves in bed and in chair independently and has sufficient muscle strength to lift up completely during move. Maintains good position in bed or chair at all times (03/13/2017 07:45:RODNEY Hair) Jaime Scale Total: 23 (03/13/2017 07:45:QS system process) Jaime Scale Risk: No Risk of Pressure Ulcer Noted at this Time (03/13/2017 07:45:QS system process) SUPPORT Family Support: Significant Other supportive, at bedside frequently; Family supportive (Annotations: mother and at bedside, appear supportive) (03/13/2017 07:45:RODNEY Hair) Emotional State: Calm/Relaxed (03/13/2017 07:45:RODNEY Hair) SAFETY Call [place] Within Reach: Yes (03/13/2017 07:45:RODNEY Hair) Side Rails Up: Yes (03/13/2017 07:45:RODNEY Hair) Bed Wheels Locked: Yes (03/13/2017 07:45:RODNEY Hair) Arm Bands Present: Yes (03/13/2017 07:45:RODNEY Hair) Isolation: [place] (03/13/2017 07:45:RODNEY Hair) FALL SCREEN Fall Risk History of Falling: (0) No (03/13/2017 07:45:RODNEY Hair) Fall Risk Secondary Diagnosis: (0) No (03/13/2017 07:45:RODNEY Hair) Fall Risk Ambulatory Aid: (0) None/Bedrest/Wheelchair/Nurse Assist (03/13/2017 07:45:RODNEY Hair) Fall Risk IV Therapy: (20) Yes (03/13/2017 07:45:RODNEY Hair) Fall Risk Gait: (0) Normal/Bedrest/Immobile (03/13/2017 07:45:RODNEY Hair) Fall Risk Mental Status: (0) Oriented to Own Ability (03/13/2017 07:45:RODNEY Hair) Fall Risk Score: 20 (03/13/2017 07:45:QS system process) Fall Risk Score Definition: No Risk: No action required (03/13/2017 07:45:QS system process) RECENT TRAVEL/INFECTIOUS DISEASE Recent Exp Communicable Disease: No (03/13/2017 07:45:Jasmyne Camp, [facility]) Cough or Fever: No (03/13/2017 07:45:Jasmyne Camp, [facility]) Foreign Travel Past 10 Days: No (03/13/2017 07:45:Jasmyne Camp, [facility]) Open Wounds or Sores: No (03/13/2017 07:45:Jasmyne Camp, [facility]) Prior Antibiotic Resistance Tx: No (03/13/2017 07:45:Jasmyne Camp, [facility]) Cultures Obtained: Not Applicable (03/13/2017 07:45:Jasmyne Camp, [facility]) Isolation Initiated: No (03/13/2017 07:45:Jasmyne Camp, [facility]) Pt/Family Education: Not Applicable (03/13/2017 07:45:Jasmyne Camp, [facility]) BABY A FHR Baseline Rate (bpm) Baby A: 140 (03/13/2017 17:45:Jasmyne Camp, [facility]) FHR Baseline Rate (bpm) Baby A: 145 (03/13/2017 17:30:Jasmyne Camp, [facility]) FHR Baseline Rate (bpm) Baby A: 145 (03/13/2017 17:15:Jasmyne Camp, [facility]) FHR Baseline Rate (bpm) Baby A: 140 (03/13/2017 17:00:Jasmyne Camp, [facility]) FHR Baseline Rate (bpm) Baby A: 135 (03/13/2017 16:45:Jasmyne Camp, [facility]) FHR Baseline Rate (bpm) Baby A: 135 (03/13/2017 16:30:Jasmyne Scales, [facility]) FHR Baseline Rate (bpm) Baby A: 140 (03/13/2017 16:15:Jasmyne Scales, [facility]) FHR Baseline Rate (bpm) Baby A: 140 (03/13/2017 16:00:Jasmyne Scales, [facility]) FHR Baseline Rate (bpm) Baby A: 135 (03/13/2017 15:45:Jasmyne Scales, [facility]) FHR Baseline Rate (bpm) Baby A: 130 (03/13/2017 15:30:Jasmyne Scales [facility]) FHR Baseline Rate (bpm) Baby A: 135 (03/13/2017 15:15:Jasmyne Scales [facility]) FHR Baseline Rate (bpm) Baby A: 135 (03/13/2017 15:00:Jasmyne Scales [facility]) FHR Baseline Rate (bpm) Baby A: 135 (03/13/2017 14:45:Jasmyne Scales [facility]) FHR Baseline Rate (bpm) Baby A: 130 (03/13/2017 14:30:Jasmyne Scales, [facility]) FHR Baseline Rate (bpm) Baby A: 135 (03/13/2017 14:15:Jasmyne Scales [facility]) FHR Baseline Rate (bpm) Baby A: 135 (03/13/2017 14:00:Jasmyne Scales [facility]) FHR Baseline Rate (bpm) Baby A: 140 (03/13/2017 13:45:Jasmyne Scales [facility]) FHR Baseline Rate (bpm) Baby A: 135 (03/13/2017 13:30:RODNEY Khanna) FHR Baseline Rate (bpm) Baby A: 135 (03/13/2017 13:15:RODNEY Khanna) FHR Baseline Rate (bpm) Baby A: 145 (03/13/2017 13:00:Jasmyne Scales [facility]) FHR Baseline Rate (bpm) Baby A: 140 (03/13/2017 12:45:Jasmyne Scales [facility]) FHR Baseline Rate (bpm) Baby A: 145 (03/13/2017 12:30:RODNEY Khanna) FHR Baseline Rate (bpm) Baby A: 140 (03/13/2017 12:15:RODNEY Khanna) FHR Baseline Rate (bpm) Baby A: 145 (03/13/2017 12:02:RODNEY Hair) FHR Baseline Rate (bpm) Baby A: 145 (03/13/2017 12:00:RODNEY Khanna) FHR Baseline Rate (bpm) Baby A: 145 (03/13/2017 11:45:RODNEY Khanna) FHR Baseline Rate (bpm) Baby A: 140 (03/13/2017 11:30:RODNEY Khanna) FHR Baseline Rate (bpm) Baby A: 140 (03/13/2017 11:15:RODNEY Khanna) FHR Baseline Rate (bpm) Baby A: 140 (03/13/2017 11:00:RODNEY Hair) FHR Baseline Rate (bpm) Baby A: 135 (03/13/2017 10:45:RODNEY Hair) FHR Baseline Rate (bpm) Baby A: 140 (03/13/2017 10:30:RODNEY Hair) FHR Baseline Rate (bpm) Baby A: 135 (03/13/2017 10:15:RODNEY Khanna) FHR Baseline Rate (bpm) Baby A: 140 (03/13/2017 10:00:RODNEY Hair) FHR Baseline Rate (bpm) Baby A: 140 (03/13/2017 09:45:RONDEY Hair) FHR Baseline Rate (bpm) Baby A: 135 (03/13/2017 09:30:RODNEY Hair) FHR Baseline Rate (bpm) Baby A: 140 (03/13/2017 09:15:RODNEY Hair) FHR Baseline Rate (bpm) Baby A: 140 (03/13/2017 09:00:RODNEY Hair) FHR Baseline Rate (bpm) Baby A: 140 (03/13/2017 08:45:RODNEY Hair) FHR Baseline Rate (bpm) Baby A: 140 (03/13/2017 08:30:RODNEY Hair) FHR Baseline Rate (bpm) Baby A: 145 (03/13/2017 08:15:Jasmyne Camp, [facility]) FHR Baseline Rate (bpm) Baby A: 145 (03/13/2017 08:00:Jasmyne Camp, [facility]) FHR Baseline Rate (bpm) Baby A: 145 (03/13/2017 07:45:Jasmyne Camp, [facility]) Variability Baby A: Moderate 6-25 bpm (03/13/2017 17:45:Jasmyne Camp, [facility]) Variability Baby A: Moderate 6-25 bpm (03/13/2017 17:30:Jasmyne Camp, [facility]) Variability Baby A: Moderate 6-25 bpm (03/13/2017 17:15:Jasmyne Camp, [facility]) Variability Baby A: Moderate 6-25 bpm (03/13/2017 17:00:Jasmyne Camp, [facility]) Variability Baby A: Moderate 6-25 bpm (03/13/2017 16:45:Jasmyne Camp, [facility]) Variability Baby A: Moderate 6-25 bpm (03/13/2017 16:30:Jasmyne Camp, [facility]) Variability Baby A: Moderate 6-25 bpm (03/13/2017 16:15:Jasmyne Camp, [facility]) Variability Baby A: Moderate 6-25 bpm (03/13/2017 16:00:Jasmyne Camp, [facility]) Variability Baby A: Moderate 6-25 bpm (03/13/2017 15:45:Jasmyne Camp, [facility]) Variability Baby A: Moderate 6-25 bpm (03/13/2017 15:30:Jasmyne Camp, [facility]) Variability Baby A: Moderate 6-25 bpm (03/13/2017 15:15:Jasmyne Camp, [facility]) Variability Baby A: Moderate 6-25 bpm (03/13/2017 15:00:Jasmyne Camp, [facility]) Variability Baby A: Minimal - Undetectable to <=5 bpm (03/13/2017 14:45:Jasmyne Camp, [facility]) Variability Baby A: Moderate 6-25 bpm (03/13/2017 14:30:Jasmyne Camp, [facility]) Variability Baby A: Minimal - Undetectable to <=5 bpm (03/13/2017 14:15:Jasmyne Camp, [facility]) Variability Baby A: Minimal - Undetectable to <=5 bpm (03/13/2017 14:00:Jasmyne Camp, [facility]) Variability Baby A: Moderate 6-25 bpm (03/13/2017 13:45:[facility] Hair) Variability Baby A: Moderate 6-25 bpm (03/13/2017 13:30:RODNEY Khanna) Variability Baby A: Moderate 6-25 bpm (03/13/2017 13:15:RODNEY Khanna) Variability Baby A: Moderate 6-25 bpm (03/13/2017 13:00:Jasmyne Scales [facility]) Variability Baby A: Moderate 6-25 bpm (03/13/2017 12:45:ROD[facility] Hair) Variability Baby A: Moderate 6-25 bpm (03/13/2017 12:30:RODNEY Khanna) Variability Baby A: Moderate 6-25 bpm (03/13/2017 12:15:RODNEY Khanna) Variability Baby A: Moderate 6-25 bpm (03/13/2017 12:02:RODNEY Hair) Variability Baby A: Moderate 6-25 bpm (03/13/2017 12:00:RODNEY Khanna) Variability Baby A: Moderate 6-25 bpm (03/13/2017 11:45:RODNEY Khanna) Variability Baby A: Moderate 6-25 bpm (03/13/2017 11:30:RODNEY Khanna) Variability Baby A: Moderate 6-25 bpm (03/13/2017 11:15:RODNEY Khanna) Variability Baby A: Moderate 6-25 bpm (03/13/2017 11:00:RODNEY Hair) Variability Baby A: Moderate 6-25 bpm (03/13/2017 10:45:RODNEY Hair) Variability Baby A: Minimal - Undetectable to <=5 bpm (03/13/2017 10:30:Jasmyne Scales [facility]) Variability Baby A: Moderate 6-25 bpm (03/13/2017 10:15:RODNEY Khanna) Variability Baby A: Moderate 6-25 bpm (03/13/2017 10:00:Jasmyne Scales [facility]) Variability Baby A: Moderate 6-25 bpm (03/13/2017 09:45:RODNEY Hair) Variability Baby A: Moderate 6-25 bpm (03/13/2017 09:30:Jasmyne Camp, [facility]) Variability Baby A: Moderate 6-25 bpm (03/13/2017 09:15:Jasmyne Camp, [facility]) Variability Baby A: Moderate 6-25 bpm (03/13/2017 09:00:Jasmyne Camp, [facility]) Variability Baby A: Moderate 6-25 bpm (03/13/2017 08:45:Jasmyne Camp, [facility]) Variability Baby A: Moderate 6-25 bpm (03/13/2017 08:30:Jasmyne Camp, [facility]) Variability Baby A: Moderate 6-25 bpm (03/13/2017 08:15:Jasmyne Camp, [facility]) Variability Baby A: Moderate 6-25 bpm (03/13/2017 08:00:Jasmyne Camp, [facility]) Variability Baby A: Moderate 6-25 bpm (03/13/2017 07:45:Jasmyne Camp, [facility]) Accelerations Baby A: 15X15 (03/13/2017 17:30:Jasmyne Camp, [facility]) Accelerations Baby A: 15X15 (03/13/2017 17:15:Jasmyne Camp, [facility]) Accelerations Baby A: 10X10 (03/13/2017 17:00:Jasmyne Camp, [facility]) Accelerations Baby A: 10X10 (03/13/2017 16:45:Jasmyne Camp, [facility]) Accelerations Baby A: 10X10 (03/13/2017 16:30:Jasmyne Camp, [facility]) Accelerations Baby A: 15X15 (03/13/2017 16:00:Jasmyne Camp, [facility]) Accelerations Baby A: 10X10 (03/13/2017 15:45:Jasmyne Camp, [facility]) Accelerations Baby A: 15X15 (03/13/2017 15:30:Jasmyne Camp, [facility]) Accelerations Baby A: 15X15 (03/13/2017 15:15:Jasmyne Camp, [facility]) Accelerations Baby A: 15X15 (03/13/2017 15:00:Jasmyne Camp, [facility]) Accelerations Baby A: 15X15 (03/13/2017 14:30:Jasmyne Camp, [facility]) Accelerations Baby A: 15X15 (03/13/2017 14:15:Jasmyne Camp, [facility]) Accelerations Baby A: 15X15 (03/13/2017 14:00:Jasmyne Scales RNM[facility]) Accelerations Baby A: 15X15 (03/13/2017 13:45:ROD[facility] Hair) Accelerations Baby A: 15X15 (03/13/2017 13:30:RODNEY Khanna) Accelerations Baby A: None (03/13/2017 13:15:RODNEY Khanna) Accelerations Baby A: 15X15 (03/13/2017 13:00:Jasmyne Scales [facility]) Accelerations Baby A: 15X15 (03/13/2017 12:45:Jasmyne Scales RNMj) Accelerations Baby A: Prolonged (03/13/2017 12:30:RODNEY Khanna) Accelerations Baby A: 15X15 (03/13/2017 12:15:RODNEY Khanna) Accelerations Baby A: 15X15 (03/13/2017 12:02:Jasmyne Scales [facility]) Accelerations Baby A: 15X15 (03/13/2017 12:00:RODNEY Khanna) Accelerations Baby A: 15X15 (03/13/2017 11:45:RODNEY Khanna) Accelerations Baby A: 15X15 (03/13/2017 11:30:RODNEY Khanna) Accelerations Baby A: 15X15 (03/13/2017 11:15:RODNEY Khanna) Accelerations Baby A: 15X15 (03/13/2017 11:00:Jasmyne Scales [facility]) Accelerations Baby A: 15X15 (03/13/2017 10:45:Jasmyne Scales RNMj) Accelerations Baby A: None (03/13/2017 10:30:Jasmyne Scales [facility]) Accelerations Baby A: 15X15 (03/13/2017 10:15:RODNEY Khanna) Accelerations Baby A: 15X15 (03/13/2017 10:00:Jasmyne Scales [facility]) Accelerations Baby A: 15X15 (03/13/2017 09:45:Jasmyne Scales [facility]) Accelerations Baby A: 15X15 (03/13/2017 09:30:Jasmyne Scales [facility]) Accelerations Baby A: 15X15 (03/13/2017 09:15:Jasmyne Camp, [facility]) Accelerations Baby A: 15X15 (03/13/2017 09:00:Jasmyne Camp, [facility]) Accelerations Baby A: 15X15 (03/13/2017 08:45:Jamsyne Camp, [facility]) Accelerations Baby A: 15X15 (03/13/2017 08:30:Jasmyne Camp, [facility]) Accelerations Baby A: Prolonged (03/13/2017 08:15:Jasmyne Camp, [facility]) Accelerations Baby A: Prolonged (03/13/2017 08:00:Jasmyne Camp, [facility]) Accelerations Baby A: 15X15 (03/13/2017 07:45:Jasmyne Camp, [facility]) Decelerations Baby A: Variable (03/13/2017 17:45:Jasmyne Camp, [facility]) Decelerations Baby A: Variable (03/13/2017 17:30:Jasmyne Camp, [facility]) Decelerations Baby A: Early (03/13/2017 17:15:Jasmyne Camp, [facility]) Decelerations Baby A: None (03/13/2017 17:00:Jasmyne Camp, [facility]) Decelerations Baby A: Early (03/13/2017 16:45:Jasmyne Camp, [facility]) Decelerations Baby A: Early (03/13/2017 16:30:Jasmyne Camp, [facility]) Decelerations Baby A: Early (03/13/2017 16:15:Jasmyne Camp, [facility]) Decelerations Baby A: Early (03/13/2017 16:00:Jasmyne Camp, [facility]) Decelerations Baby A: None (03/13/2017 15:45:Jasmyne Camp, [facility]) Decelerations Baby A: None (03/13/2017 15:30:Jasmyne Camp, [facility]) Decelerations Baby A: None (03/13/2017 15:15:Jasmyne Camp, [facility]) Decelerations Baby A: None (03/13/2017 15:00:Jasmyne Camp, [facility]) Decelerations Baby A: Early (03/13/2017 14:45:Jasmyne Camp, [facility]) Decelerations Baby A: None (03/13/2017 14:30:Jasmyne Camp, [facility]) Decelerations Baby A: None (03/13/2017 14:15:RODNEY Hair) Decelerations Baby A: None (03/13/2017 14:00:RODNEY Hair) Decelerations Baby A: None (03/13/2017 13:45:RODNEY Hair) Decelerations Baby A: None (03/13/2017 13:30:RODNEY Khanna) Decelerations Baby A: None (03/13/2017 13:15:RODNEY Khanna) Decelerations Baby A: None (03/13/2017 12:45:RODNEY Hair) Decelerations Baby A: None (03/13/2017 12:30:RODNEY Khanna) Decelerations Baby A: None (03/13/2017 12:15:RODNEY Khanna) Decelerations Baby A: None (03/13/2017 12:02:RODNEY Hair) Decelerations Baby A: None (03/13/2017 12:00:RODNEY Khanna) Decelerations Baby A: None (03/13/2017 11:45:RODNEY Khanna) Decelerations Baby A: None (03/13/2017 11:30:RODNEY Khanna) Decelerations Baby A: None (03/13/2017 11:15:RODNEY Khanna) Decelerations Baby A: None (03/13/2017 11:00:RODNEY Hair) Decelerations Baby A: None (03/13/2017 10:45:RODNEY Hair) Decelerations Baby A: None (03/13/2017 10:30:RODNEY Hair) Decelerations Baby A: None (03/13/2017 10:15:RODNEY Khanna) Decelerations Baby A: None (03/13/2017 10:00:RODNEY Hair) Decelerations Baby A: None (03/13/2017 09:45:RODNEY Hair) Decelerations Baby A: None (03/13/2017 09:30:RODNEY Hair) Decelerations Baby A: None (03/13/2017 09:15:Jasmyne Scales, RN) Decelerations Baby A: None (03/13/2017 09:00:Jasmyne Camp, RN) Decelerations Baby A: None (03/13/2017 08:45:Jasmynestanislav Scales, RN) Decelerations Baby A: None (03/13/2017 08:30:Jasmyne Camp, RN) Decelerations Baby A: None (03/13/2017 08:15:Jasmyne Scales, RN) Decelerations Baby A: None (03/13/2017 08:00:Jasmyne Camp, RN) Decelerations Baby A: None (03/13/2017 07:45:Jasmyne Camp, [facility]) ADDITIONAL COMMENTS Assessment Flag: Admission Assessment (03/13/2017 07:45:QS system process)
--- NOTE | 2017-03-15 04:47 | L&D Discharge Summary ---
OB Discharge Summary Datetime Report Generated by CPN: 03/15/2017 04:45 DISCHARGE DIAGNOSIS Diagnosis/Symptoms: Other Diagnoses/Symptoms Other: Kidney stone Gestation: 40.0 Number of Babies in Womb: 1 Parity: 0 DIET/ACTIVITY/RESTRICTIONS Diet: Regular Activity: Normal Activity TEACHING/INSTRUCTIONS/REFERRALS Instructions Given To: Patient Instructions Understood: Patient Verbalized Understanding; Support Person Verbalized Understanding Referrals: None Educational Materials- Other: PO hydration, medication administration DISCHARGE INFORMATION Discharged AMA: No Discharged To: Home Discharge Provider Name: Dr. Camacho Accompanied By: spouse Discharge Method: Wheelchair Condition: Stable FOLLOW UP INFORMATION Follow Up With: [facility] Follow Up On: As Scheduled
[2017-03-15] MEDS: IBUPROFEN 800 MG TABLET PO SCH (05:59)
--- NOTE | 2017-03-15 07:57 | PDOC DISCHARGE SUMMARY ---
Final Diagnosis Discharge Date: 03/15/17 - Final Diagnosis (1) Vaginal delivery Is this a current diagnosis for this admission?: Yes (2) GDM, class A1 Is this a current diagnosis for this admission?: Yes Discharge Data - Discharge Medication Home Medications: Nitrofurantoin Monohyd/M-Cryst [Macrobid 100 mg Capsule] 100 mg PO BID 03/13/17 Pnv No.122/Iron/Folic Acid [ Multi Tablet] 1 tab PO DAILY 03/13/17 Docusate Sodium [Colace 100 mg Capsule] 100 mg PO BID #60 capsule 03/15/17 Ferrous Sulfate [Feosol 325 mg Tablet] 325 mg PO DAILY #60 tablet 03/15/17 Ibuprofen [Motrin 800 mg Tablet] 800 mg PO Q8 #90 tablet 03/15/17 Gestational Age: 40.0 Reason(s) for Admission: Induction of Labor, Gestional Diabetes Procedures: NST Intrapartum Procedure(s): Spontaneous Vaginal Delivery Complication(s): Laceration-Perineal Laceration-Degree: 2nd - Data Baby 1 Female at 1 minute: 9 at 5 minutes: 10 Weight: 3980 kg Home with Mother: Yes Complications: No - Diagnosis Test Laboratory: Temp Pulse Resp BP Pulse Ox 98.2 F 98 18 108/71 100 03/14/17 19:58 03/14/17 19:58 03/14/17 19:58 03/14/17 19:58 03/14/17 19:58 03/13/17 03/13/17 03/14/17 07:53 08:38 07:32 RBC 3.66 L 3.15 L Hgb 11.5 L 10.0 L Hct 33.1 L 29.3 L Urine Opiates Screen NEGATIVE - Discharge information/Instructions Discharge Activity: Activity As Tolerated, Pelvic Rest, No tub bath Discharge Diet: Regular Disposition: HOME, SELF-CARE Follow up with: [facility] in: 4, Weeks
[2017-03-15] MEDS: PRENATAL VITAMIN W-O CA NO5/FE FUMARATE/FA CAPSULE PO SCH (09:17)
[2017-03-15] MEDS: DOCUSATE SODIUM 100 MG CAPSULE PO SCH (09:17)
[2017-03-15] MEDS: SENNOSIDES/DOCUSATE 8.6-50 MG 1 EACH TABLET PO SCH (09:17)
[2017-03-15] MEDS: FERROUS SULFATE 325 MG TABLET PO SCH (09:17)
[2017-03-15] MEDS: FAMOTIDINE 20 MG TABLET PO SCH (09:17)
[2017-03-15 10:16] VITALS: BP 115/68
--- NOTE | 2017-03-15 10:46 | L&D Discharge Summary ---
OB Discharge Summary Datetime Report Generated by CPN: 03/15/2017 10:45 DISCHARGE DIAGNOSIS Diagnosis/Symptoms: Other Diagnoses/Symptoms Other: Kidney stone Gestation: 40.0 Number of Babies in Womb: 1 Parity: 0 DIET/ACTIVITY/RESTRICTIONS Diet: Regular Activity: Normal Activity TEACHING/INSTRUCTIONS/REFERRALS Instructions Given To: Patient Instructions Understood: Patient Verbalized Understanding; Support Person Verbalized Understanding Referrals: None Educational Materials- Other: PO hydration, medication administration DISCHARGE INFORMATION Discharged AMA: No Discharged To: Home Discharge Provider Name: Dr. Camacho Accompanied By: spouse Discharge Method: Wheelchair Condition: Stable FOLLOW UP INFORMATION Follow Up With: [facility] Follow Up On: As Scheduled
--- NOTE | 2017-03-15 10:46 | L&D General Admission ---
General Admit Datetime Report Generated by CPN: 03/15/2017 10:45 Height (in): 67 (03/15/2017 07:57:QS system process)
--- NOTE | 2017-03-15 10:46 | L&D Admission Assessment ---
LD ADM ASMT Datetime Report Generated by N: 03/15/2017 10:45 Weight (lb): 8756 (03/15/2017 07:57:QS system process) Weight (kg): 3980.0 (03/15/2017 07:57:QS system process) Total Wt Gain (lb): 8608 (03/15/2017 07:57:QS system process) Wt Gain (kg): 3912.7 (03/15/2017 07:57:QS system process) BMI: 1371.2 (03/15/2017 07:57:QS system process)
--- NOTE | 2017-03-15 16:46 | L&D Discharge Summary ---
OB Discharge Summary Datetime Report Generated by CPN: 03/15/2017 16:45 DISCHARGE DIAGNOSIS Diagnosis/Symptoms: Other Diagnoses/Symptoms Other: Kidney stone Gestation: 40.0 Number of Babies in Womb: 1 Parity: 0 DIET/ACTIVITY/RESTRICTIONS Diet: Regular Activity: Normal Activity TEACHING/INSTRUCTIONS/REFERRALS Instructions Given To: Patient Instructions Understood: Patient Verbalized Understanding; Support Person Verbalized Understanding Referrals: None Educational Materials- Other: PO hydration, medication administration DISCHARGE INFORMATION Discharged AMA: No Discharged To: Home Discharge Provider Name: Dr. Camacho Accompanied By: spouse Discharge Method: Wheelchair Condition: Stable FOLLOW UP INFORMATION Follow Up With: [facility] Follow Up On: As Scheduled
--- NOTE | 2017-03-15 16:46 | L&D General Admission ---
General Admit Datetime Report Generated by CPN: 03/15/2017 16:45 Height (in): 67 (03/15/2017 07:57:QS system process)
--- NOTE | 2017-03-15 22:45 | L&D General Admission ---
General Admit Datetime Report Generated by CPN: 03/15/2017 22:45 Height (in): 67 (03/15/2017 07:57:QS system process)
--- NOTE | 2017-03-15 22:45 | L&D Discharge Summary ---
OB Discharge Summary Datetime Report Generated by CPN: 03/15/2017 22:45 DISCHARGE DIAGNOSIS Diagnosis/Symptoms: Other Diagnoses/Symptoms Other: Kidney stone Gestation: 40.0 Number of Babies in Womb: 1 Parity: 0 DIET/ACTIVITY/RESTRICTIONS Diet: Regular Activity: Normal Activity TEACHING/INSTRUCTIONS/REFERRALS Instructions Given To: Patient Instructions Understood: Patient Verbalized Understanding; Support Person Verbalized Understanding Referrals: None Educational Materials- Other: PO hydration, medication administration DISCHARGE INFORMATION Discharged AMA: No Discharged To: Home Discharge Provider Name: Dr. Camacho Accompanied By: spouse Discharge Method: Wheelchair Condition: Stable FOLLOW UP INFORMATION Follow Up With: [facility] Follow Up On: As Scheduled
--- NOTE | 2017-03-16 04:45 | L&D Discharge Summary ---
OB Discharge Summary Datetime Report Generated by CPN: 03/16/2017 04:45 DISCHARGE DIAGNOSIS Diagnosis/Symptoms: Other Diagnoses/Symptoms Other: Kidney stone Gestation: 40.0 Number of Babies in Womb: 1 Parity: 0 DIET/ACTIVITY/RESTRICTIONS Diet: Regular Activity: Normal Activity TEACHING/INSTRUCTIONS/REFERRALS Instructions Given To: Patient Instructions Understood: Patient Verbalized Understanding; Support Person Verbalized Understanding Referrals: None Educational Materials- Other: PO hydration, medication administration DISCHARGE INFORMATION Discharged AMA: No Discharged To: Home Discharge Provider Name: Dr. Camacho Accompanied By: spouse Discharge Method: Wheelchair Condition: Stable FOLLOW UP INFORMATION Follow Up With: [facility] Follow Up On: As Scheduled
--- NOTE | 2017-03-16 04:45 | L&D Admission Assessment ---
LD ADM ASMT Datetime Report Generated by N: 03/16/2017 04:45 Weight (lb): 8756 (03/15/2017 07:57:QS system process) Weight (kg): 3980.0 (03/15/2017 07:57:QS system process) Total Wt Gain (lb): 8608 (03/15/2017 07:57:QS system process) Wt Gain (kg): 3912.7 (03/15/2017 07:57:QS system process) BMI: 1371.2 (03/15/2017 07:57:QS system process)
--- NOTE | 2017-03-16 04:45 | L&D General Admission ---
General Admit Datetime Report Generated by CPN: 03/16/2017 04:45 Height (in): 67 (03/15/2017 07:57:QS system process)
--- NOTE | 2017-03-16 10:45 | L&D Discharge Summary ---
OB Discharge Summary Datetime Report Generated by CPN: 03/16/2017 10:45 DISCHARGE DIAGNOSIS Diagnosis/Symptoms: Other Diagnoses/Symptoms Other: Kidney stone Gestation: 40.0 Number of Babies in Womb: 1 Parity: 0 DIET/ACTIVITY/RESTRICTIONS Diet: Regular Activity: Normal Activity TEACHING/INSTRUCTIONS/REFERRALS Instructions Given To: Patient Instructions Understood: Patient Verbalized Understanding; Support Person Verbalized Understanding Referrals: None Educational Materials- Other: PO hydration, medication administration DISCHARGE INFORMATION Discharged AMA: No Discharged To: Home Discharge Provider Name: Dr. Camacho Accompanied By: spouse Discharge Method: Wheelchair Condition: Stable FOLLOW UP INFORMATION Follow Up With: [facility] Follow Up On: As Scheduled
--- NOTE | 2017-03-19 13:17 | Admission Physical ---
Datetime Report Generated by CPN: 03/19/2017 13:17 CURRENT ADMISSION Hx Assessment: The History has been Reviewed and is Current Chief Complaint: Scheduled Induction of Labor Indication for Induction: Maternal Diabetes Admit Plan: Admit to Unit; Initiate Labor Induction Protocol ALLERGIES Medication Allergies: Yes Medication Allergies: clavulanic acid (10/13/2016); clarithromycin (03/13/2017); amoxicillin (10/13/2016) Medication Allergies: clavulanic acid (10/13/2016); amoxicillin (10/13/2016) Latex: No Latex Allergies OBSTETRICAL HISTORY EDC: 03/13/2017 00:00 : 2 Para: 0 Term: 0 : 0 SAB: 0 IAB: 1 Ectopic: 0 Livin Cesareans: 0 VBACs: 0 Multiple Births: 0 Gestational Diabetes: No Rh Sensitization: No Incompetent Cervix: No DEMETRIUS: No Infertility: No ART Treatment: No Uterine Anomaly: No IUGR: No Hx Previous C/S: No Macrosomia: No Hx Loss/Stillborn: No PIH: No Hx : No Placenta Previa/Abruption: No Depression/PP Depression: No PTL/PROM: No Post Hemorrhage: No Current Procedures: Ultrasound Obstetrical History Comments: g1-7 weeks g2- current SEE RECORDS Alcohol: No Marijuana : No Cocaine: No Other Illicit Drugs: No Cigarettes: Never Smoker. 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 Heart Disease: No Hosp/Surgery: Yes Autoimmune Disorder: No Anesthetic Complications: No Kidney Disease: No Abnormal Pap Smear: No Neuro/Epilepsy: No Psychiatric Disorders: No Other Medical Diseases: No Hepatitis/Liver Disease: No Significant Family History: No Varicosities/Phlebitis: No Trauma/Violence : No Thyroid Dysfunction: No Medical History Comments: tonsilectomy, adenoidectomy, and removal of lump from breast bone INFECTIOUS HISTORY Gonorrhea: No Genital Herpes: No Chlamydia: No Tuberculosis: No Syphilis: No Hepatitis: No HIV/AIDS Exposure: No Rash or Viral Illness: No HPV: No PHYSICAL EXAM General: Normal HEENT: Normal Neurologic: Normal Thyroid: Deferred Heart: Normal Lungs: Normal Breast: Normal Back: Normal Abdomen: Normal Genitourinary Exam: Normal Extremities: Normal DTRs: Normal Pelvic Type: Adequate Vital Signs: Reviewed VAGINAL EXAM Dilatation: 3 Effacement: 80 Station: -2 Contraction Comments: irregular MEMBRANES Membranes: Intact FETUS A EGA: 40.0 Monitoring: External US FHR- Baseline: 145 Variability: Moderate 6-25bpm Accelerations: 15X15 Decelerations: None FHR Category: Category I Estimated Weight (gm): 3900 Presentation: Vertex Admit Comment: Admit to L _ D, IOL GDMA1 GBS negative See records for complete medical and hx Plan AROM, pitocin Pt may have epidural, prn PLANS FOR LABOR AND DELIVERY Labor and Delivery: None Pain Management: Epidural Feeding Preference: Breast Benefit of Breast Feed Discussed: Yes Circumcision: N/A INFORMED CONSENT Assignment: Margo Camacho MD Signature: with User ID: [email or web address] : with User ID: [email or web address]
--- NOTE | 2017-03-19 13:19 | Admission Physical ---
Datetime Report Generated by CPN: 03/19/2017 13:18 Hx Assessment: The History has been Reviewed and is Current Chief Complaint: Scheduled Induction of Labor Indication for Induction: Maternal Diabetes Admit Plan: Admit to Unit; Initiate Labor Induction Protocol Medication Allergies: Yes Medication Allergies: clavulanic acid (10/13/2016); clarithromycin (03/13/2017); amoxicillin (10/13/2016) Medication Allergies: clavulanic acid (10/13/2016); amoxicillin (10/13/2016) Latex: No Latex Allergies EDC: 03/13/2017 00:00 : 2 Para: 0 Term: 0 : 0 SAB: 0 IAB: 1 Ectopic: 0 Livin Cesareans: 0 VBACs: 0 Multiple Births: 0 Gestational Diabetes: No Rh Sensitization: No Incompetent Cervix: No DEMETRIUS: No Infertility: No ART Treatment: No Uterine Anomaly: No IUGR: No Hx Previous C/S: No Macrosomia: No Hx Loss/Stillborn: No PIH: No Hx : No Placenta Previa/Abruption: No Depression/PP Depression: No PTL/PROM: No Post Hemorrhage: No Current Procedures: Ultrasound Obstetrical History Comments: g1-7 weeks g2- current Alcohol: No Marijuana : No Cocaine: No Other Illicit Drugs: No Cigarettes: Never Smoker. 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 Heart Disease: No Hosp/Surgery: Yes Autoimmune Disorder: No Anesthetic Complications: No Kidney Disease: No Abnormal Pap Smear: No Neuro/Epilepsy: No Psychiatric Disorders: No Other Medical Diseases: No Hepatitis/Liver Disease: No Significant Family History: No Varicosities/Phlebitis: No Trauma/Violence : No Thyroid Dysfunction: No Medical History Comments: tonsilectomy, adenoidectomy, and removal of lump from breast bone Gonorrhea: No Genital Herpes: No Chlamydia: No Tuberculosis: No Syphilis: No Hepatitis: No HIV/AIDS Exposure: No Rash or Viral Illness: No HPV: No General: Normal HEENT: Normal Neurologic: Normal Thyroid: Deferred Heart: Normal Lungs: Normal Breast: Normal Back: Normal Abdomen: Normal Genitourinary Exam: Normal Extremities: Normal DTRs: Normal Pelvic Type: Adequate Vital Signs: Reviewed Dilatation: 3 Effacement: 80 Station: -2 Contraction Comments: irregular Membranes: Intact Monitoring: External US FHR- Baseline: 145 Variability: Moderate 6-25bpm Accelerations: 15X15 Decelerations: None FHR Category: Category I Estimated Weight (gm): 3900 Presentation: Vertex Admit Comment: Admit to L _ D, IOL GDMA1 GBS negative See records for complete medical and hx Plan AROM, pitocin Pt may have epidural, prn Labor and Delivery: None Pain Management: Epidural Feeding Preference: Breast Circumcision: N/A Assignment: Margo Camacho MD Signature: with User ID: [email or web address] : with User ID: [email or web address]
== END 2017-03-15 11:22 | disposition home or self-care (01) | DRG 775 ==
LOC: LR 07:02 → 2S 03-14 09:00
PROVIDERS: ADMIT Student in an Organized Health Care Education/Training Program; ATTEND Student in an Organized Health Care Education/Training Program
PROC: 10E0XZZ Delivery of Products of Conception, External Approach (ICD-10-PCS; principal; 2017-03-13)
PROC: 0KQM0ZZ Repair Perineum Muscle, Open Approach (ICD-10-PCS; 2017-03-13)
PROC: 10907ZC Drainage of Amniotic Fluid, Therapeutic from Products of Conception, Via Natural or Artificial Opening (ICD-10-PCS; 2017-03-13)
PROC: 3E033VJ Introduction of Other Hormone into Peripheral Vein, Percutaneous Approach (ICD-10-PCS; 2017-03-13)
DX: O24.420 Gestational diabetes mellitus in childbirth, diet controlled (principal); O70.1 Second degree perineal laceration during delivery; Z3A.40 40 weeks gestation of pregnancy; Z37.0 Single live birth
CPT/HCPCS: 36415; 80307; 81005; 85025; 85027; 86592; 86850; 86900; 86901; J2590; J3490

== ENCOUNTER → 2017-03-17 | Outpatient (CLI) | payer OTHER ==
--- NOTE | 2017-03-17 21:39 | EKG REPORT ---
SEVERITY:- NORMAL ECG - SINUS RHYTHM : Confirmed by: Tabitha Womack 17-Mar-2017 21:38:07
== END ==
LOC: OD 11:28
PROVIDERS: ATTEND Advanced Practice Midwife
DX: R07.9 Chest pain, unspecified (principal)
CPT/HCPCS: 93005; 93010

== ENCOUNTER 2017-04-15 14:02 | Inpatient (IN) | payer OTHER ==
[2017-04-15] MEDS ORDERED: IBUPROFEN 800 MG TABLET PO PRN (14:39)
[2017-04-15] MEDS ORDERED: SERTRALINE HCL 50 MG TABLET PO ONE (14:45)
[2017-04-15] MEDS ORDERED: POLYETHYLENE GLYCOL 3350 POWDER 17 GM/1 PACKET PO ONE (14:45)
[2017-04-15] MEDS ORDERED: PRENATAL VITAMIN W-O CA NO5/FE FUMARATE/FA CAPSULE PO ONE (14:45)
[2017-04-15] MEDS ORDERED: IBUPROFEN 800 MG TABLET PO ONE (14:45)
[2017-04-15 15:26] LABS: HEMATOCRIT 34.9 % (36.0-47.0); HEMOGLOBIN 11.5 g/dL (12.0-15.5); HGB HCT DIFFERENCE -0.4; MEAN CORPUSCULAR HEMOGLOBIN 30.4 pg (27.0-33.4); MEAN CORPUSCULAR VOLUME 92 fl (80-97); RED BLOOD COUNT 3.78 10^6/uL (3.72-5.28); RED CELL DISTRIBUTION WIDTH 13.6 % (11.5-14.0)
[2017-04-15 15:39] LABS: CREATININE RESULT 0.74 mg/dL (0.52-1.25)
[2017-04-15] MEDS: RINGERS SOLUTION,LACTATED 1,000 ML IV PRN (15:39)
[2017-04-15] MEDS ORDERED: VANCOMYCIN HCL 1,500 MG in DEXTROSE 5%-WATER 250 ML IV ONE (16:00)
[2017-04-15] MEDS: IBUPROFEN 800 MG TABLET PO PRN (23:00)
[2017-04-16] MEDS: RINGERS SOLUTION,LACTATED 1,000 ML IV PRN ×3 (02:42→22:03)
[2017-04-16] MEDS: VANCOMYCIN HCL 1,000 MG in DEXTROSE 5%-WATER 250 ML IV SCH ×3 (05:52→21:46)
[2017-04-16] MEDS: IBUPROFEN 800 MG TABLET PO PRN ×2 (09:36→20:21)
[2017-04-16] MEDS: PRENATAL VITAMIN W-O CA NO5/FE FUMARATE/FA CAPSULE PO SCH (11:02)
[2017-04-16] MEDS: POLYETHYLENE GLYCOL 3350 POWDER 17 GM/1 PACKET PO SCH (11:02)
[2017-04-16] MEDS: SERTRALINE HCL 50 MG TABLET PO SCH (11:03)
--- NOTE | 2017-04-16 18:42 | PDOC PROGRESS REPORT ---
Subjective Progress Note for:: 04/16/17 Subjective:: reports feeling feverish, o/w doing well, having issues with pumping. reviewed hand expression. RN saw pt. Physical Exam - Physical Exam Vital Signs: Temp Pulse Resp BP Pulse Ox 98.1 F 68 14 109/68 99 04/16/17 16:01 04/16/17 16:01 04/16/17 16:01 04/16/17 16:01 04/16/17 16:01 Intake & Output 04/15/17 04/16/17 04/17/17 06:59 06:59 06:59 Intake Total 800 240 Output Total 1150 Balance -350 240 Weight 70.31 kg General appearance: PRESENT: no acute distress, well-developed, well-nourished Head exam: PRESENT: atraumatic, normocephalic Respiratory exam: PRESENT: clear to auscultation mukund, symmetrical, unlabored Cardiovascular exam: PRESENT: RRR. ABSENT: diastolic murmur, rubs, systolic murmur Pulses: PRESENT: normal dorsalis pedis pul, +2 pedal pulses bilateral Vascular exam: PRESENT: normal capillary refill GI/Abdominal exam: PRESENT: normal bowel sounds, soft. ABSENT: distended, guarding, mass, organolmegaly, rebound, tenderness Rectal exam: PRESENT: deferred Extremities exam: PRESENT: full ROM. ABSENT: calf tenderness, clubbing, pedal edema Neurological exam: PRESENT: alert, awake, oriented to person, oriented to place , oriented to time, oriented to situation, CN II-XII grossly intact. ABSENT: motor sensory deficit Psychiatric exam: PRESENT: appropriate affect, normal mood. ABSENT: homicidal ideation, suicidal ideation Skin exam: PRESENT: dry, intact, warm. ABSENT: cyanosis, rash Result Laboratory Results: 04/15/17 15:15 04/15/17 15:15 Assessment & Plan - Diagnosis (1) Mastitis, obstetric, condition Is this a current diagnosis for this admission?: YesPlan: Left breast mastitis. currently on Vanc. Repeat CBC in am. Cont Vanc. Don used to farrukh breast and reviewed breast feeding and hand expression reviewed. Will get breast US to r/o mastitis. Reviewed plan of care with pt and need to cont abx until breast exam improved. RN to contin to follow. - Time Time Spent with patient: 15-24 minutes Medications reviewed and adjusted accordingly: Yes Anticipated discharge: Home Within: within 48 hours - Inpatient Certification Based on my medical assessment, after consideration of the patient's comorbidities, presenting symptoms, or acuity I expect that the services needed warrant INPATIENT care.: Yes I certify that my determination is in accordance with my understanding of Medicare's requirements for reasonable and necessary INPATIENT services [42 CFR 412.3e].: Yes Medical Necessity: Failure to Improve With Outpatient Therapy, Need Close Monitoring Due to Risk of Patient Decompensation, Need for Pain Control, Need for IV Antibiotics 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
[2017-04-17] MEDS: VANCOMYCIN HCL 1,000 MG in DEXTROSE 5%-WATER 250 ML IV SCH ×3 (06:01→21:50)
[2017-04-17 06:07] LABS: CREATININE RESULT 0.68 mg/dL (0.52-1.25)
[2017-04-17 06:08] LABS: HEMATOCRIT 30.6 % (36.0-47.0); HEMOGLOBIN 10.3 g/dL (12.0-15.5); HGB HCT DIFFERENCE 0.3; MEAN CORPUSCULAR HEMOGLOBIN 30.6 pg (27.0-33.4); MEAN CORPUSCULAR HGB CONC 33.7 g/dL (32.0-36.0); MEAN CORPUSCULAR VOLUME 91 fl (80-97); RED BLOOD COUNT 3.37 10^6/uL (3.72-5.28); WHITE BLOOD COUNT 5.3 10^3/uL (4.0-10.5)
[2017-04-17 07:25] LABS: BAND NEUTROPHILS % (MANUAL) 2 % (3-5); BASOPHILS % (MANUAL) 0 % (0-2); EOSINOPHILS % (MANUAL) 20 % (0-6); LYMPHOCYTES % (MANUAL) 36 % (13-45); TOTAL CELLS COUNTED 100
[2017-04-17 07:26] LABS: OVALOCYTES SLIGHT; POIKILOCYTOSIS SLIGHT; TEAR DROP CELLS SLIGHT; TOXIC GRANULATION SLIGHT
[2017-04-17] MEDS: IBUPROFEN 800 MG TABLET PO PRN (08:21)
--- NOTE | 2017-04-17 08:57 | PDOC PROGRESS REPORT ---
Subjective Progress Note for:: 04/17/17 Subjective:: Pt feeling systemically better but still with breast pain and left nipple pain. Physical Exam - Physical Exam Vital Signs: Temp Pulse Resp BP Pulse Ox 98.1 F 54 L 16 112/70 98 04/17/17 08:15 04/17/17 08:15 04/17/17 08:15 04/17/17 08:15 04/17/17 08:15 Intake & Output 04/16/17 04/17/17 04/18/17 06:59 06:59 06:59 Intake Total 800 1740 1000 Output Total 1150 2900 1300 Balance -350 -1160 -300 Weight 70.31 kg Additional comments: left breast with decreasing erythema but some peau de orange changes at 8 oclock and most tender there. Small erosion on nipple noted-stable from admit. Result Laboratory Results: 04/17/17 05:40 04/17/17 05:40 04/17/17 04/17/17 05:40 05:40 WBC 5.3 RBC 3.37 L Hgb 10.3 L Hct 30.6 L MCV 91 MCH 30.6 MCHC 33.7 RDW 13.0 Plt Count 209 Seg Neutrophils % Not Reportable Lymphocytes % Not Reportable Monocytes % Not Reportable Eosinophils % Not Reportable Basophils % Not Reportable Absolute Neutrophils Not Reportable Absolute Lymphocytes Not Reportable Absolute Monocytes Not Reportable Absolute Eosinophils Not Reportable Absolute Basophils Not Reportable Creatinine 0.68 Est GFR ( Amer) > 60 Est GFR (Non-Af Amer) > 60 Assessment & Plan - Diagnosis (1) Mastitis, obstetric, condition Is this a current diagnosis for this admission?: Yes - Plan Summary Plan Summary: cont iv vanc-pharmacy managing dosing. add diflucan to cover for any fungal component cont pumping await formal sono result-verbal report to Dr Camacho last night showed no abscess but tissue edema present
[2017-04-17] MEDS: POLYETHYLENE GLYCOL 3350 POWDER 17 GM/1 PACKET PO SCH (09:55)
[2017-04-17] MEDS: PRENATAL VITAMIN W-O CA NO5/FE FUMARATE/FA CAPSULE PO SCH (09:56)
[2017-04-17] MEDS: SERTRALINE HCL 50 MG TABLET PO SCH (09:56)
[2017-04-17] MEDS ORDERED: FLUCONAZOLE 200 MG/NS RTU 100 ML IV SCH (10:00)
--- NOTE | 2017-04-17 16:51 | RADIOLOGY REPORT (SQ) ---
EXAM DESCRIPTION: U/S BREAST UNILATERAL LIMITED COMPLETED DATE/TIME: 04/16/2017 9:43 pm REASON FOR STUDY: Possible Abscess Left Breast COMPARISON: None TECHNIQUE: Static and Realtime grayscale interrogation of focal area(s) of concern in the left breas t(s) acquired. Selected color doppler/spectral images saved to PACS. LIMITATIONS: None. FINDINGS: Masses:No cystic or solid masses identified Architecture:Extensive soft tissue edema. Other: None. IMPRESSION: Cellulitis. No abscess. BIRAD: 2 Benign findings. RECOMMENDATION: RECOMMENDED FOLLOW-UP: Follow-up as clinically indicated. COMMENT: The [employer] ([employer]) has developed recommendations for screening MRI of the breasts in certain patient populations, to be used in conjunction with mammography. Breast MRI s urveillance may be appropriate for women with more than 20% lifetime risk of developing breast cancer as determined by genetic testing, significant family history of the disease, or history of mantle r adiation for Hodgkins Disease. [employer]CR Practice Guidelines 2008. TECHNICAL DOCUMENTATION: FINDING NUMBER: (1) ASSESSMENT: (1) JOB ID: [id number] [employer]- All Rights Reserved
[2017-04-17] MEDS: RINGERS SOLUTION,LACTATED 1,000 ML IV PRN (17:49)
[2017-04-18] MEDS: IBUPROFEN 800 MG TABLET PO PRN ×2 (01:11→21:39)
[2017-04-18] MEDS: RINGERS SOLUTION,LACTATED 1,000 ML IV PRN ×2 (01:14→10:39)
[2017-04-18] MEDS: VANCOMYCIN HCL 1,000 MG in DEXTROSE 5%-WATER 250 ML IV SCH ×3 (05:05→23:08)
--- NOTE | 2017-04-18 08:49 | PDOC PROGRESS REPORT ---
Subjective Subjective:: Pt reports having some soreness of her breast No new complaints Physical Exam - Physical Exam Vital Signs: Temp Pulse Resp BP Pulse Ox 98.5 F 57 L 16 113/71 98 04/18/17 08:12 04/18/17 08:12 04/18/17 08:12 04/18/17 08:12 04/18/17 08:12 Intake & Output 04/17/17 04/18/17 04/19/17 06:59 06:59 06:59 Intake Total 1740 1700 Output Total 2900 3200 Balance -1160 -1500 General appearance: PRESENT: no acute distress, cooperative, well-developed - Left Breast- mild erythema around areola extending appprox 3-4cm, some mild Peat -de-orange at 9 o'clock, no masses palpated Result Laboratory Results: 04/17/17 05:40 04/17/17 05:40 Assessment & Plan - Diagnosis (1) Mastitis, obstetric, condition Is this a current diagnosis for this admission?: Yes - Time Time Spent with patient: Less than 15 minutes Critical Time spent with patient: Less than 15 minutes Anticipated discharge: Home Within: within 24 hours - Will continueIV Vancomycin for another 24 hours and plan d/c home on po abx
[2017-04-18] MEDS: SERTRALINE HCL 50 MG TABLET PO SCH (10:07)
[2017-04-18] MEDS: PRENATAL VITAMIN W-O CA NO5/FE FUMARATE/FA CAPSULE PO SCH (10:07)
[2017-04-18] MEDS: FLUCONAZOLE 100 MG TABLET PO SCH (10:08)
[2017-04-18] MEDS: POLYETHYLENE GLYCOL 3350 POWDER 17 GM/1 PACKET PO SCH (10:10)
[2017-04-19] MEDS: VANCOMYCIN HCL 1,000 MG in DEXTROSE 5%-WATER 250 ML IV SCH (06:28)
[2017-04-19] MEDS: IBUPROFEN 800 MG TABLET PO PRN (08:13)
--- NOTE | 2017-04-19 08:47 | PDOC DISCHARGE SUMMARY ---
General - Admit/Disc Date/PCP Admission Date/Primary Care Provider: 04/15/17 14:02 PRAKASH VALENTIN MD Discharge Date: 04/19/17 - Discharge Diagnosis (1) Mastitis, obstetric, condition Is this a current diagnosis for this admission?: Yes - Additional Information Home Medications: Pnv No.122/Iron/Folic Acid [ Multi Tablet] 1 tab PO DAILY 03/13/17 Docusate Sodium [Colace 100 mg Capsule] 100 mg PO BID #60 capsule 03/15/17 Ferrous Sulfate [Feosol 325 mg Tablet] 325 mg PO DAILY #60 tablet 03/15/17 Dicloxacillin Sodium 500 mg PO Q8 04/15/17 Sertraline HCl [Zoloft] 25 mg PO DAILY 04/15/17 History of Present Illness History of Present Illness: EARL THACKER is a 22 year old female Hospital Course Hospital Course: good response to antibiotics. erythema edeam much improved Physical Exam - Physical Exam Vital Signs: Temp Pulse Resp BP Pulse Ox 98.3 F 54 L 17 106/60 99 04/19/17 04:28 04/19/17 04:28 04/19/17 04:28 04/19/17 04:28 04/19/17 04:28 Intake & Output 04/18/17 04/19/17 04/20/17 06:59 06:59 06:59 Intake Total 1700 Output Total 3200 Balance -1500 General appearance: PRESENT: no acute distress Skin exam: PRESENT: erythema, warm - reduced erythema of breast. no evidence of masses or abscess formation Result Laboratory Results: 04/17/17 05:40 04/17/17 05:40 Plan Discharge Plan: discharge home with antibiotics and pain medications Time Spent: Less than 30 Minutes
[2017-04-19 09:02] VITALS: BP 111/59
[2017-04-19] MEDS: SERTRALINE HCL 50 MG TABLET PO SCH (09:37)
[2017-04-19] MEDS: FLUCONAZOLE 100 MG TABLET PO SCH (09:38)
[2017-04-19] MEDS: POLYETHYLENE GLYCOL 3350 POWDER 17 GM/1 PACKET PO SCH (09:47)
[2017-04-19] MEDS: PRENATAL VITAMIN W-O CA NO5/FE FUMARATE/FA CAPSULE PO SCH (10:00)
== END 2017-04-19 10:23 | disposition home or self-care (01) | DRG 601 ==
LOC: 2S 14:02
PROVIDERS: ADMIT Specialist; ATTEND Specialist
DX: N61.0 Mastitis without abscess (principal); Z79.899 Other long term (current) drug therapy; Z88.1 Allergy status to other antibiotic agents
CPT/HCPCS: 36415; 76642; 80202; 82565; 85025; 85027; J1450; J3370; J3490; J7060; J7120